=== PATIENT | male | born 1950 | race Caucasian/White ===

== ENCOUNTER 2016-10-25 18:50 | Inpatient (IN) | payer OTHER ==
[~2016-10-25] VITALS: Ht 195.6 cm; Wt 174.5 kg
[~2016-10-25 18:50] MED LIST: AZIT250T4 PO; CIPROFLOXACIN PO; DOXYCYCLINE PO; GLPZ5T PO; LISI10TA PO; METF500T4 PO; Phenylephrine 10,000 mCg/mL Inj ONE; Phenylephrine/NS 100 mCg/mL 10 mL Syringe IVPUSH ONE; Propofol 10,000 mCg/mL 20 mL Inj ONE; Succinylcholine Chloride 20 mg/mL 5 mL Inj ONE; fentaNYL-PF 50 mCg/mL 2 mL Inj ONE
[2016-10-25 18:54] VITALS: BP 138/85; PULSE 104; RESP 16; O2SAT 98
[2016-10-25] MEDS ORDERED: 0.9% Sodium Chloride 1,000 ML IV ONE ×2 (19:29→20:25)
--- NOTE | 2016-10-25 19:35 | ED.REPORT ---
HPI-Rash / Abscess Date of Service Oct 25, 2016 ED Provider: Ruby Gordillo History of Present Illness: 65-year-old male here for abscesses in his perianal area for one week. It is worsening. 3 days ago he began to feel weak and like he could not get out of bed. Slightly nauseous but he is able to eat no vomiting. No diarrhea. Generalized belly pain. 3 days ago his chest started hurting intermittently. Pain is dull. No known exacerbaters, comes and goes randomly. It is severe at this moment. No fever, chills or clamminess. He has a history of an abscess years ago. He has a history of diabetes last took his blood sugar 3 days ago and it was in the 200s. He has been too weak to take it since then. Nursing Notes Stated Complaint: BACK PAIN,WEAKNESS,BOIL Chief Complaint: Skin Rash/Abscess Allergies: Coded Allergies: No Known Allergies (Verified , 12/24/15) Scheduled ([Doxycycline]) 100 MG PO BID ([Ciprofloxacin]) 500 MG PO BID Azithromycin (Zithromax (Z-Delmar)) 250 Mg Tablet 250 MG PO DIRECTED Take two tablets by mouth on day 1, then take one tablet daily on days 2 through 5. Glipizide (Glipizide) 5 Mg Tablet 10 MG PO DAILY Lisinopril (Lisinopril) 10 Mg Tablet 10 MG PO DAILY Metformin (Metformin) 500 Mg Tablet 500 MG PO DAILY General Time Seen by MD: 19:20 Chief Complaint Abscess Hx Obtained From: Patient Arrived By: Walk-in Onset Occurred: 1 week ago Location: : Buttock: Generalized Severity: Current: Severe Severity: Maximum: Severe Associated with: Reports Abdominal pain, Reports Myalgia, Reports Nausea, Reports Weakness Pertinent Negative: Pt denies other symptoms Recent Healthcare: No recent doctor visit Similar Sx Previous: Yes Past Medical History Past Medical History Notes: PCP: Dr. Shanda Duff non smoker, no hx PR, no cholesterol issues. Past Medical History 1. Type 2 Diabetes 2. Hypertension 3. Depression and Anxiety 4. Vitamin D deficiency 5. Arthritis Reports: Diabetes mellitus, GERD Reports: Depression Past Surgical History Toe amputation scrotal surgery Reports: Tonsillectomy Smoking History Former Smoker Social History Alcohol Use: Denies alcohol use Drug Use: Denies drug use Other Social History: Local resident Ambulatory Status Independent Review of Systems Constitutional: Reports: Fatigue, Malaise, Weakness - generalized Respiratory: Denies: Dyspnea on exertion Cardiovascular: Reports: Chest pain, Denies: Edema GI: Reports: Abdominal pain, Nausea, Denies: Diarrhea, Vomiting Complete sys rev & neg: except as marked. Male: Denies Dysuria Neurologic: Reports: Lightheaded, Weakness Physical Exam Initial Vital Signs Vital Signs (First) Date Time Temp Pulse Resp B/P Pulse Ox O2 Delivery O2 Flow Rate FiO2 10/25/16 18:54 36.9 104 16 138/85 98 Room Air Initial VS: Reviewed, Vital signs normal General/Constitutional: Awake, Alert Distress / Hydration: Positive: Distress mild Appearance / Presentation: Positive: Ill appearing/not toxic Skin: Atraumatic, Color NL Rash / Lesion Notes: Large area of erythema, swelling, induration in the perineum, just to the left of midline. This area is tender. Appears deep. approx 8x3 inches Abscess #1 Location/Condition: Positive: Perirectal... (Indurated) Head / Eyes: Normocephalic, PERRL Pinpoint pupils Respiratory / Chest: Breath sounds NL, Breath sounds = bilat, No respiratory distress, No rales, No rhonchi, No wheezing Cardiovascular: Heart rate NL, Regular rhythm, Heart sounds NL, Peripheral circulation NL Neurologic: Oriented X3, Speech NL, No motor deficits, No sensory deficits Patient appears drowsy but answers all questions appropriately Male Genitourinary: Atraumatic, Penis NL, No penile discharge, No meatal blood , Testes NL, Epididymis NL Perineum: Positive: Abscess present, Erythema present, Rash present, Swelling present, Tenderness present Interpretation & Diagnostics Lab Results Interpretation Result Diagram: 10/25/16195410/25/161954 Test 10/25/16 19:55 White Blood Count 15.3th/mm3 (3.8-10.1) Red Blood Count 4.75mil/mm3 (4.40-5.80) Hemoglobin 13.6g/dL (13.8-17.2) Hematocrit 40.0% (41.0-50.0) Mean Corpuscular Volume 84.2fL (81-100) Mean Corpuscular Hemoglobin 28.6pg (27.0-35.0) Mean Corpuscular Hemoglobin Concent 34.0% (32.0-37.0) Red Cell Distribution Width 13.1% (12.3-15.4) Platelet Count 208bil/L (150-400) Neutrophils (%) (Auto) 87.7% (40-74) Lymphocytes (%) (Auto) 6.0% (14-46) Monocytes (%) (Auto) 5.8% (4-12) Eosinophils (%) (Auto) 0.1% (0-5) Basophils (%) (Auto) 0.1% (0-3) Sodium Level 131mEq/L (134-144) Potassium Level 4.7mEq/L (3.5-5.2) Chloride Level 90mEq/L (97-108) Carbon Dioxide Level 23mmol/L (18-29) Blood Urea Nitrogen 33mg/dL (8-27) Creatinine 1.58mg/dL (0.76-1.27) Estimat Glomerular Filtration Rate 47mL/min (>59) Glucose Level 320mg/dL (60-99) Lactic Acid Level 2.0mmol/L (0.4-2.0) Calcium Level 9.5mg/dL (8.5-10.1) Magnesium Level 1.6mg/dL (1.6-2.6) Total Bilirubin 0.8mg/dL (0.0-1.2) Aspartate Amino Transf (AST/SGOT) 21U/L (0-50) Alanine Aminotransferase (ALT/SGPT) 19U/L (0-44) Alkaline Phosphatase 104U/L (25-160) Troponin T < 0.010ug/L (0.0-0.011) Total Protein 8.1g/dL (6.4-8.4) Albumin 3.5g/dL (3.4-5.0) Lipase 17U/L (13-60) Re-Eval/Medical Decision Med Decision/Clinical Course pt wt [address] navarro 2100 Discharge & Departure Referrals: Prudence Olivo (PCP) Ruby Gordillo Oct 25, 2016 19:35
[2016-10-25 20:05] VITALS: BP 157/63; PULSE 106; RESP 22; O2SAT 100
[2016-10-25] MEDS ORDERED: Pantoprazole 4 mg/mL 10 mL Inj IVPUSH ONE (20:05)
--- NOTE | 2016-10-25 20:10 | DRSVH ---
PROCEDURE: X-RAY CHEST ONE VIEW, PORTABLE ([id number]) INDICATIONS: weakness TECHNIQUE: One view of the chest was acquired. COMPARISON: [facility], CR, XR CHEST 2VW, 10/29/2014, 10:33. FINDINGS: Surgical changes and devices: None. Lungs and pleura: No pleural effusions or pneumothorax. Lungs are clear. Mediastinum: Mediastinal contours appear normal. Heart size is normal. Bones and chest wall: No suspicious bony lesions. Overlying soft tissues appear unremarkable. IMPRESSION: No acute process. Dictated by: Monika Bates M.D. on 10/25/2016 at 20:08 Approved by: Monika Bates M.D. on 10/25/2016 at 20:08
[2016-10-25 20:13] LABS: BASOPHILS % (AUTO) 0.1 % (0-3); EOSINOPHILS % (AUTO) 0.1 % (0-5); MONOCYTES % (AUTO) 5.8 % (4-12); Mean Corpuscular Hemoglobin 28.6 pg (27.0-35.0); Mean Corpuscular Volume 84.2 fL (81-100); NEUTROPHILS % (AUTO) 87.7 % (40-74); Platelet Count 208 bil/L (150-400)
[2016-10-25] MEDS ORDERED: Vancomycin Dose per Pharmacist XX ONE (20:20)
[2016-10-25] MEDS ORDERED: Vancomycin Inj 2,250 MG in 0.9% Sodium Chloride 500 ML IV ONE (20:40)
[2016-10-25 20:51] LABS: TROPONIN T < 0.010 ug/L (0.0-0.011)
[2016-10-25 20:58] VITALS: BP 160/44; PULSE 102; RESP 20; O2SAT 98
[2016-10-25 21:01] LABS: Lipase 17 U/L (13-60); Magnesium 1.6 mg/dL (1.6-2.6)
[2016-10-25] MEDS ORDERED: Piperacillin-Tazo 3.375 Gm Inj 3.375 GM in Dextrose 5% Minibag Plus 50 ML IV ONE (21:05)
--- NOTE | 2016-10-25 21:51 | DRSVH ---
PROCEDURE: CT ABDOMEN AND PELVIS WITH CONTRAST ([id number]) INDICATIONS: abscess perineum TECHNIQUE: After the administration of intravenous contrast, 5 mm thick sections acquired from the diaphragm to the symphysis. 5 mm coronal and sagittal reformats were acquired. For radiation dose reduction, the following was used: automated exposure control, adjustment of mA and/or kV according to patient siz e. COMPARISON: None. FINDINGS: Image quality: Excellent. ABDOMEN: Lung bases: Lung bases are clear. Heart size is normal. Solid organs: Liver and spleen are normal in size and enhancement. Gallbladder demonstrates multipl e calculi within its lumen. Biliary system is non dilated. Pancreas enhances normally. No adrenal nodules. Kidneys demonstrate normal size and enhancement, without hydronephrosis. There is mild sym metrical perinephric fat stranding. Peritoneum and bowel: A small hiatal hernia is present. Bowel loops demonstrate normal wall thickness and caliber. No free fluid or air. Appendix not seen. No evidence of appendicitis. Nodes and vessels: No retroperitoneal or mesenteric adenopathy by size criteria. Aorta and inferior vena cava are normal in size. Miscellaneous: No ventral hernias. PELVIS: Genitourinary: Bladder wall thickness is normal. Miscellaneous: No inguinal hernias or adenopathy. There is a multi-locular gas-containing collectio n within the subcutaneous tissues of the left perineum, measuring roughly 80 mm anteroposterior by 10 mm transverse. Bones: No suspicious bony lesions. No vertebral body compression fractures. IMPRESSION: 1. Subcutaneous gas collection within the left perineum, consistent with infection, with gas-forming organism (necrotizing fasciitis). 2. Cholelithiasis. 3. Small hiatal hernia. 4. Findings discussed with Dr. Mirza on 10.25.16 at 2148 hrs. Dictated by: Monika Bates M.D. on 10/25/2016 at 21:43 Approved by: Monika Bates M.D. on 10/25/2016 at 21:49
[2016-10-25] MEDS ORDERED: DULO60CA61 PO (22:40)
[2016-10-25] MEDS ORDERED: ALBU8.5H2 INHALATION (22:40)
[2016-10-25] MEDS ORDERED: BECL8.7A5 INHALATION (22:40)
[2016-10-25] MEDS ORDERED: IBUP800T28 PO (23:09)
[2016-10-25] MEDS ORDERED: ASCO250T7 PO (23:09)
[2016-10-25] MEDS ORDERED: MULT-528 PO (23:09)
[2016-10-25] MEDS ORDERED: VITA1TAB22 PO (23:09)
[2016-10-25] MEDS ORDERED: Alum-Mag Hydrox-Simeth 30 mL Suspension PO PRN (23:20)
[2016-10-25] MEDS ORDERED: Polyethylene Glycol (PEG) 17 Gm Powder PO PRN (23:20)
[2016-10-25] MEDS ORDERED: Lactated Ringer's 1,000 ML IV ONE (23:57)
[2016-10-26] VITALS (27 sets, daily range): BP systolic 84–152; BP diastolic 38–70; PULSE 71–86; RESP 10–18; O2SAT 92–100
[2016-10-26] MEDS ORDERED: Lactated Ringer's 1,000 ML IV SCH ×3 (00:19→14:51)
[2016-10-26] MEDS ORDERED: Lactated Ringer's 500 ML IV PRN ×2 (00:19→14:51)
--- NOTE | 2016-10-26 00:19 | PCM.HPANE ---
Patient Data Date of Service: Oct 25, 2016 Surgeon Admitting Provider:Alber Mims MD Attending Provider:Nathalie Agudelo DO Primary Care Physician:Prudence Olivo Other Provider: Reason for Visit Perineal Gangrene Ht/WT & BMI Weight (Kilograms): 175 Body Mass Index 44 Allergies Coded Allergies: No Known Allergies (Verified , 12/24/15) Past Anesthesia History Anesthesia History: Denies:: Abnormal Airway, Anesthesia Reactions, Difficult Intubation, Malignant Hyperthermia Diabetes History Hx Diabetes?: Yes Type of Diabetes: Type II Glycemic Control: Oral Medication Current Bedside Blood Glucose: 297 MRSA MRSA: Yes (in the blood/SCROTAL WOUND) Medications Blood Thinner: Aspirin Hypertension Medication: Yes Home Meds Incl Beta Tiffany: No Reported Medications Ibuprofen 800 Mg Dtlmmx541 Mg PO DAILYWM Ref 0 10/25/16 B Complex with Vitamin C (Vitamin B-Complex with Vit C)1 Each Tablet1 Each PO QAM 10/25/16 Multivit with Calcium,Iron,Min (Multivitamins C-Adqmuiz-Ewrc)1 Each Tablet1 Each PO QAM 10/25/16 Ascorbic Acid (Vitamin C)250 Mg Tab.sxwz604 Mg PO DAILYWM #30 TABLET Ref 0 10/25/16 Lisinopril 10 Mg Shxkhq53 Mg PO QAM 30 Days Ref 0 07/10/15 Glipizide 5 Mg Pudkru12 Mg PO DAILYWM 30 Days 04/25/14 Metformin 500 Mg Kvulgv175 Mg PO DAILYWM 30 Days Ref 0 04/25/14 Discontinued Reported Medications Duloxetine 60 Mg Capsule.dr60 Mg PO DAILY Ref 0 10/25/16 Beclomethasone Dipropionate (Qvar)8.7 Gm Aer.w.adap1 Puff INHALATION BID #8.7 GM 80 MCG 10/25/16 Albuterol HFA (Proair HFA)8.5 Gm Hfa.aer.ad2 Puffs INHALATION Q4H PRN For Shortness of Breath #1 INHALER 10/25/16 [Ciprofloxacin] No Conflict Krisx692 Mg PO BID 07/10/15 [Doxycycline] No Conflict Kbxae269 Mg PO BID 07/10/15 Discontinued Scripts Azithromycin (Zithromax (Z-Delmar))250 Mg Wnosfd714 Mg PO DIRECTED #6 TABLET Ref 0 Take two tablets by mouth on day 1, then take one tablet daily on days 2 through 5. Prov:Levon Gibbs MD 12/24/15 History History of ENT Problems?: Yes HEENT History: Positive for:: Sinus Problem (SINUSITIS) Denies:: Abnormal Airway Cataracts Difficult Intubation Dysphagia Denture Type: None Teeth Condition: Broken Teeth No Teeth Tooth Decay Inflamed Gums Missing Teeth Hx of Heart Problems?: Yes Cardiovascular History: Positive for:: Edema Hypertension Denies:: Cardiac Surgery Chest Pain Congestive Heart Failure Heart Murmur Irregular Heartbeat Pacemaker Thrombophlebitis Hx of Respiratory Problem?: Yes Respiratory History: Positive for:: Cough Hemoptysis (HX OF) Denies:: Asthma COPD Chest Surgery Dyspnea Emphysema Pneumonia (HX BRONCHITIS) Tuberculosis Use of C-PAP Machine Hx Neurologic Problems?: No Neurological History: Denies:: Alzheimer's Disease CVA Dementia Dizziness Headaches Parkinson's Disease Seizures Hx of GI Problems?: Yes Hx of Problems?: Yes Genitourinary History: Positive for:: Kidney Stones (HX OF) Urinary Tract Infection (HX OF) Denies:: HX of Hemodialysis HX of Peritoneal Dialysis: No Male Hx: Positive for:: Testicular Surgery (S/P I&D PERINEAL ABCESS,I&D MRSA WOUND-SCROTUM) Denies:: Prostate Problems Scrotal Mass Skin History: Positive for:: Pressure Ulcers (ULCERS LT LOWER LEG (RESOLVED) & FOOT ) Denies:: History Skin Disorders? Hx Musculoskeletal Problems?: Yes Musculoskeletal History: Denies:: Back Injury Joint Replacement Musculoskeletal Trauma Hx of Psycho/Social Problems?: Yes Psycho Social History: Positive for:: Anxiety Hx Depression Denies:: Bipolar Disorder Suicide Attempt Hx Surgeries?: Yes (SCROTAL SURGERY,I&D PERINEAL ABCESS,PARTIAL AMP LT 5TH TOE) Hx Any Other Health Problems?: Yes Other History: Positive for:: Hospitalization (SCROTAL WOUND) Denies:: Cancer Endocrine Disease Thyroid Disease History Blood Transfusions: Denies:: Blood Transfuse Reaction Blood Transfusions Hx Diabetes: YesBedside Blood Glucose: 297 Hx Alcohol Use: NoHx Substance Use: No Smoking Status: Former Smoker Have You Smoked inLast 12 mo: No Stop/Bang Treated for Sleep Apnea?: Yes Do You Have a CPAP Machine?: Yes ENA Risk Assessment: High Risk, =/>3 Yes ENA Category 2: Yes Risk Assessment Category Category 1A: Patient has history of documented sleep apnea, and HAS NOT received any narcotic, sedative or anesthesia administration during this stay. Category 1B: Patient has history of documented sleep apnea, and HAS received any narcotic , sedative or anesthesia administration during this stay Category 2: Patient has SUSPECTED Obstructive Sleep Apnea, and HAS received any narcotic , sedative or anesthesia administration during this stay. Category 3: Patient has SUSPECTED Obstructive Sleep Apnea and HAS NOT received narcotic, sedative or anesthesia administration during this stay. Category 4: Outpatient in Procedural Areas with known sleep apnea or who screen positive for High Risk via the STOP/BANG questionnaire. Exam Exam Vital Signs Vital Signs Date Time Temp Pulse Resp B/P Pulse Ox O2 Delivery O2 Flow Rate FiO2 10/25/16 20:58 102 20 160/44 98 Room Air 10/25/16 20:05 38.6 106 22 157/63 100 Room Air 10/25/16 18:54 36.9 104 16 138/85 98 Room Air General Appearance: Alert, Oriented X3, Cooperative HEENT/AIRWAY: MP 2, Neck Movement (Ok), Mouth Opening (Wide), Other (Poor dentition) Lungs: Clear to Auscultation, Normal Air Movement Heart: Regular Rate/Rhythm, Normal S1, Normal S2 Meds/Labs/Diagnostics Admission Meds Current Medications Sodium Chloride (Normal Saline) 1,000 ml @ 0 mls/hr Q0M ONCE IV Last administered on 10/25/16 20:08; Start 10/25/16 at 19:29; Stop 10/25/16 at 19:31 ; Status DC Aspirin (Aspirin Chewable) 324 mg NOW ONCE PO Last administered on 10/25/16 20:24; Start 10/25/16 at 20:05; Stop 10/25/16 at 20:06; Status DC Pantoprazole 40 mg 40 mg ONCE ONCE IVPUSH Last administered on 10/25/16 20:24 ; Start 10/25/16 at 20:05; Stop 10/25/16 at 20:06; Status DC Sodium Chloride 1,000 ml @ 0 mls/hr Q0M ONCE IV Last administered on 21:24; Start 10/25/16 at 20:25; Stop 10/25/16 at 20:26; Status DC Vancomycin HCl 2250 mg/Sodium Chloride 500 ml @ 250 mls/hr ONCE ONCE IV Last administered on 7/23/17at 22:31; Start 10/25/16 at 20:40; Stop 10/25/16 at 22:39 ; Status DC Piperacillin Sod/ Tazobactam Sod/ Dextrose/Water (Zosyn 3.375 Gm Inj/D5W Minibag Plus) 50 ml @ 100 mls/hr ONCE ONCE IV Last administered on 10/25/16t 21:24; Start 10/25/16 at 21:05; Stop 10/25/16 at 21:34; Status DC Bedside Blood Glucose: 297 Labs Test 10/25/16 19:55 White Blood Count 15.3th/mm3 (3.8-10.1) Red Blood Count 4.75mil/mm3 (4.40-5.80) Hemoglobin 13.6g/dL (13.8-17.2) Hematocrit 40.0% (41.0-50.0) Mean Corpuscular Volume 84.2fL (81-100) Mean Corpuscular Hemoglobin 28.6pg (27.0-35.0) Mean Corpuscular Hemoglobin Concent 34.0% (32.0-37.0) Red Cell Distribution Width 13.1% (12.3-15.4) Platelet Count 208bil/L (150-400) Neutrophils (%) (Auto) 87.7% (40-74) Lymphocytes (%) (Auto) 6.0% (14-46) Monocytes (%) (Auto) 5.8% (4-12) Eosinophils (%) (Auto) 0.1% (0-5) Basophils (%) (Auto) 0.1% (0-3) Sodium Level 131mEq/L (134-144) Potassium Level 4.7mEq/L (3.5-5.2) Chloride Level 90mEq/L (97-108) Carbon Dioxide Level 23mmol/L (18-29) Blood Urea Nitrogen 33mg/dL (8-27) Creatinine 1.58mg/dL (0.76-1.27) Estimat Glomerular Filtration Rate 47mL/min (>59) Glucose Level 320mg/dL (60-99) Lactic Acid Level 2.0mmol/L (0.4-2.0) Calcium Level 9.5mg/dL (8.5-10.1) Magnesium Level 1.6mg/dL (1.6-2.6) Total Bilirubin 0.8mg/dL (0.0-1.2) Aspartate Amino Transf (AST/SGOT) 21U/L (0-50) Alanine Aminotransferase (ALT/SGPT) 19U/L (0-44) Alkaline Phosphatase 104U/L (25-160) Troponin T < 0.010ug/L (0.0-0.011) Total Protein 8.1g/dL (6.4-8.4) Albumin 3.5g/dL (3.4-5.0) Lipase 17U/L (13-60) Plan Impression Patient chart reviewed, patient interviewed and anesthestic plan with risks, benefits, and alternatives discussed, and informed consent obtained. NPO per Anesth. Guidelines: Yes ASA Physical Status: ASA3 Severe Disease Anesthetic Support Modalities: [place] Scope Anesthetic Plan: GA Bene/Risks/Altern/Consents: Yes HP Complete Prior to Induction: Yes Dmitry Delacruz MD Oct 25, 2016 22:46
[2016-10-26] MEDS ORDERED: Dexamethasone 4 mg/mL Inj IVPUSH PRN ×2 (00:20→14:55)
[2016-10-26] MEDS ORDERED: HYDROmorphone 1 mg/mL Inj IVPUSH PRN (00:20)
[2016-10-26] MEDS ORDERED: Atropine 0.4 mg/mL Inj IVPUSH PRN (00:20)
[2016-10-26] MEDS ORDERED: MetoCLOpramide 5 mg/mL 2 mL Inj IVPUSH PRN ×2 (00:20→14:55)
[2016-10-26] MEDS ORDERED: hydrALAZINE 20 mg/mL Inj IVPUSH PRN (00:20)
[2016-10-26] MEDS ORDERED: Ondansetron 2 mg/mL 2 mL Inj IVPUSH PRN ×3 (00:20→14:55)
[2016-10-26] MEDS ORDERED: Labetalol 5 mg/mL 20 mL Inj IV PRN (00:20)
[2016-10-26] MEDS ORDERED: EPHEDrine Sulfate 50 mg/mL Inj IVPUSH PRN ×2 (00:20→14:55)
--- NOTE | 2016-10-26 00:25 | HP ---
[address] [address] HISTORY AND PHYSICAL PATIENT: MANNY PRESTON : 1950 MR#: [id number] ADMIT: 10/25/2016 JOB ID: [id number] DATE OF SERVICE: 10/25/2016 CHIEF COMPLAINT/IDENTIFICATION: I have been asked to admit this 65-year-old man with a perineal soft tissue infection. 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 He has been noticing some discomfort for about a week in the area between his anus and his scrotum. This has gotten especially bad since Wednesday and is reminiscent of when he had a perineal soft tissue infection that was debrided by the Urology Service in 2005 at [facility]. He comes in to be evaluated and has had a CAT scan that has demonstrated some perineal soft tissue gas. PAST MEDICAL HISTORY: Diabetes, hypertension, depression, anxiety, diabetic foot problems including toe amputation. MEDICATIONS: Glipizide, metformin, lisinopril, some sort of "water pill." ALLERGIES: No known allergies. SOCIAL HISTORY: He lives alone. Ex-smoker; negative tobacco currently. Negative daily alcohol use. 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 FAMILY HISTORY: Noncontributory. REVIEW OF SYSTEMS: Per ER note, generally negative except as above. PHYSICAL EXAMINATION: Vital signs are recorded in the chart. His temperature is 38.6, his pulse is mildly elevated at around 100-106, blood pressure is 160/44, room air saturation is 98%. He does not look toxic. His sclerae are clear. His neck is supple. Lungs are clear. Heart sounds are regular. Abdomen is soft. He has some erythema in the perineum between the scrotum and the anus. No fluctuance. There is a midline swelling, but no crepitus. LABORATORY DATA: White count is 15.3, hematocrit is 40. Chemistries show a mild hyponatremia of 131. BUN and creatinine are up a bit at 33 and 1.58. His glucose is 320. Liver function tests are normal. Lipase is 17. IMAGING: He had an abdominal and pelvic CT scan which demonstrates subcutaneous gas collection within the left perineum, consistent with gas-forming organisms. I have reviewed the report and the films. IMPRESSION AND PLAN: A 65-year-old male, with comorbidities of diabetes and hypertension and morbid obesity, who presents with gas gangrene of the perineum. His glucose is 320, but I think we need to get him to the OR sooner than later. We will try to correct his glucose perioperatively, but I have recommended that we go to the operating room and perform a debridement of his perineum with the caveat that he may end up with a fair amount of soft tissue loss. He agrees to proceed. The Hospitalist Services will be asked to consult. We will plan to put him in the ICU postop.
[2016-10-26] MEDS ORDERED: Meropenem Inj 1,000 MG in 0.9% Sodium Chloride 100 ML IV SCH (00:30)
[2016-10-26] MEDS ORDERED: Insulin Human REGular Inj 100 UNIT in 0.9% Sodium Chloride-Pha MIX 100 ML IV SCH ×2 (01:13→01:23)
[2016-10-26] MEDS ORDERED: Dextrose 5% 0.45% NaCl 1,000 ML IV PRN ×2 (01:13→01:23)
[2016-10-26] MEDS: Phenylephrine 10,000 mCg/mL Inj IVPUSH PRN ×5 (01:20→01:56)
[2016-10-26] MEDS ORDERED: Phenylephrine/NS-PF 100 mCg/mL 5 mL Syringe IVPUSH ONE ×2 (01:20→15:19)
[2016-10-26] MEDS ORDERED: diphenhydrAMINE 25 mg Capsule PO PRN (01:25)
[2016-10-26] MEDS ORDERED: Piperacillin-Tazo 3.375 Gm Inj 3.375 GM in Dextrose 5% Minibag Plus 50 ML IV SCH (01:25)
[2016-10-26] MEDS ORDERED: Clindamycin Inj 900 MG in IV Premix 1 EACH IV SCH (01:25)
[2016-10-26] MEDS ORDERED: Polyethylene Glycol (PEG) 17 Gm Powder PO ONE (01:25)
--- NOTE | 2016-10-26 01:33 | PCM.HPMED ---
Subjective Date of Service Oct 26, 2016 Primary Provider: Admitting Physician: Alber Mims MD Primary Care Physician: Prudence Olivo Attending Physician: Nathalie Agudelo DO Admit Status: From the Emergency Department Chief Complaint: Perineal pain History of Present Illness: Patient is a 65-year-old male with a history of type 2 diabetes, and past history of perineal abscesses who presents with pain and swelling in his perineal area for one week. He developed nausea, vomiting, and diarrhea last Wednesday and he began to feel weak and like he could not get out of bed. He reports anorexia, weakness, and generalized dull abdominal pain. He denies any trauma to the area. Denies fevers, chills. He states this episode is similar to an episode in 2005 when he was admitted to [facility] for perineal soft tissue infection, which was debrided by Dr. Chow of Urology. He has a history of diabetes last took his blood sugar 3 days ago and it was in the 200s. He has been too weak to take it since then. He reports intermittent chest pain that began about 2 months ago after a severe cough. He reports a sternal aching chest pain that does not radiate or worsen with exertion, and improves with heat packs. He states he has no dyspnea or chest pain on exertion and can climb 1-2 flights of stairs without any difficulty. He has no history of cardiovascular disease. On admission, temp 38.6, HR 106, RR 22, BP 157/63, O2 100 on RA. WBC 15.3 with 87.7% neutrophils, BUN 33, Cr 1.58, glucose 320. Abdominal CT showed subcutaneous gas collection within the left perineum. Review of Systems: Comprehensive review of systems conducted and was negative except for the pertinent positives listed above. 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 External ears normal. Eyes: PERRLA, EOMI. Anicteric sclerae. Mouth: Mouth normal, Mucous membranes dry Neck: Neck supple with full range of motion. Chest& Lungs: Clear to auscultation bilaterally with no crackles, wheezes, or rhonchi. Cardiovascular: Regular rate/rhythm, Normal S1, Normal S2, Systolic murmur Abdomen: Non-tender, Non-distended, No masses, Normoactive bowel tones, Soft Genitourinary: Perineal edema and erythema present. Musculoskeletal: Normal range of motion Extremities: Left lower extremity edema and venous stasis dermatitis. Neurological: Grossly neurologically intact. Normal speech Lab and Diagnostics Result Diagram: 10/25/16195410/25/161954 X-Rays, CTs and MRIs Date of Service: 10/25/162104 PROCEDURE: CT ABDOMEN AND PELVIS WITH CONTRAST ([id number]) 1. Subcutaneous gas collection within the left perineum, consistent with infection, with gas-forming organism (necrotizing fasciitis). 2. Cholelithiasis. 3. Small hiatal hernia. 4. Findings discussed with Dr. Mirza on 10.25.16 at 2148 hrs. Dictated by: Monika Bates M.D. on 10/25/2016 at 21:43 Approved by: Monika Bates M.D. on 10/25/2016 at 21:49 Date of Service: 10/25/161928 PROCEDURE: X-RAY CHEST ONE VIEW, PORTABLE ([id number]) IMPRESSION: No acute process. Dictated by: Monika Bates M.D. on 10/25/2016 at 20:08 Approved by: Monika Bates M.D. on 10/25/2016 at 20:08 Assessment & Plan Patient is a 65-year-old male with a history of type 2 diabetes, and past history of perineal abscesses who presents with pain and swelling in his perineal area for one week. Admitted for Delphine's gangrene. Acute sepsis. Present on admission. - Secondary to Delphine's gangrene in the context of uncontrolled type 2 diabetes. Temp 38.6, HR 106, RR 22, WBC 15.3. - NS @ 100 ml/hr - Blood cultures pending - Wound cultures 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 - Patient presents with necrotizing fasciitis of the perineal area with gas forming organisms. CT as described above. Based on history, he is of intermediate cardiovascular risk for a high risk surgery. However, given the emergent nature of the surgery, will proceed with surgical debridement. - Zosyn, clindamycin, and vancomycin IV started in ED and post op - will continue with meropenem, clindamycin and vancomycin - Dr. Mims of General Surgery is consulting and will take pt to surgery urgently. We appreciate his expertise. - NPO - Dilaudid SUSTAINABILITY MANAGER, patient will likely return intubated into the CCU post op. Sedation will be continued with fentanyl and propofol Acute kidney injury. Present on admission. - Cr 1.58 on admission, secondary to sepsis. Pt denies history of CKD. Based on previous hospitalizations, baseline Cr likely around 1.0. - NS @ 100 ml/hr - Avoid nephrotoxic medications - Monitor BMP Type 2 Diabetes, Uncontrolled, Present on Admission, Chronic - BG 320 on admission. Pt reports BG in 200s for last few days. Possibly acute secondary to infection. Pt is NPO for now. - Hold home glipizide and metformin - Insulin gtt. - A1c pending Hypertension, acute on chronic. - BP 160/44 on admission. Now mildly hypotensive (107/57) after surgery. - Continue to monitor BP - Hold home lisinopril. Other Medical Conditions GERD - GI prophylaxis with pepcid Depression and Anxiety - Bowel regimen as needed - Antiemetic as needed Patient is admitted under inpatient status with expected length of stay greater than 2 midnights due to severity of presenting symptoms, risk of adverse event, and complexity of treatment plan. GI Prophylaxis: Proton Pump Inhibitor VTE Prophylaxis: SCDs Resuscitation Status: CPR: Attempt Resuscitation Attending Statement The patient was seen and examined together with house staff on 10/25/2016 and I agree with the history, exam and plan as outlined in the note above. Tarun Nixon Oct 26, 2016 01:33 Nathalie Agudelo DO Oct 26, 2016 03:38
[2016-10-26] MEDS: Phenylephrine 20 mg/250 mL D5W IV SCH ×14 (01:45→21:25)
[2016-10-26] MEDS: fentaNYL-PF 50 mCg/mL 2 mL Inj IVPUSH PRN ×5 (02:11→16:11)
--- NOTE | 2016-10-26 02:35 | PCM.ANEP1 ---
Post Anesthesia PACU Phase 1 Assessment Date of Service: Oct 26, 2016 Vital Signs Vital Signs Date Time Temp Pulse Resp B/P Pulse Ox O2 Delivery O2 Flow Rate FiO2 10/26/16 02:20 82 15 107/57 95 Room Air 10/26/16 02:15 37.4 82 12 133/38 95 Room Air 10/26/16 02:10 83 15 152/70 94 Room Air 10/26/16 02:05 84 18 125/59 95 Room Air 10/26/16 02:00 85 16 118/60 100 Simple Mask 8 10/26/16 01:55 86 16 86/40 100 Simple Mask 8 10/26/16 01:50 86 16 106/59 100 Simple Mask 8 10/26/16 01:45 84 16 90/39 100 Simple Mask 8 10/26/16 01:40 86 16 88/42 100 Simple Mask 8 10/26/16 01:35 86 16 92/45 100 Simple Mask 8 10/26/16 01:30 85 16 92/44 100 Simple Mask 8 10/26/16 01:25 84 16 96/49 100 Simple Mask 8 10/26/16 01:20 36.6 84 16 84/40 100 Simple Mask 8 10/25/16 20:58 102 20 160/44 98 Room Air 10/25/16 20:05 38.6 106 22 157/63 100 Room Air 10/25/16 18:54 36.9 104 16 138/85 98 Room Air Anesthetic Administered: GA Level of Alertness: Awake, talking TRAYLOR's with Equal Strength: Yes Pain: Yes Pain Scale Score: 6 Nausea or Vomiting: No CV Function & Hydration Stable: No (hypotension) Airway Device: Oxygen Delivery: Simple Mask Lungs: Normal Air Movement PACU Phase 2 Assessment Complications: No Follow up Care: No Patient Instructions Provided: N/A Comments Patient with persistent hypotension in PACU despite fluid resuscitation. A right IJ triple lumen central line and right radial a-line were placed while in PACU prior to transfer to the ICU. See separate procedure notes. Dmitry Delacruz MD Oct 26, 2016 02:35
--- NOTE | 2016-10-26 02:44 | OP ---
[address] [address] OPERATIVE REPORT PATIENT: MANNY PRESTON : 1950 MR#: [id number] ADMIT: 10/25/2016 JOB ID: [id number] DATE OF SURGERY: 10/26/2016 PREOPERATIVE DIAGNOSIS(ES): Perineal soft tissue infection with subcutaneous gas. POSTOPERATIVE DIAGNOSIS(ES): Necrotizing fasciitis of the perineum. PROCEDURE: Debridement of perineal necrotizing fasciitis. SURGEON: Alber Mims MD SENIOR ENGINEER: Evan Ruiz PA-C. imaging assistant was required for exposure and retraction and should be considered medically necessary for the procedure. INDICATIONS: A 65-year-old man, with a previous history of perineal soft tissue infection debrided by Urology in 2005, who returns now with a one-week history of perineal discomfort and cellulitis. A CAT scan demonstrates soft tissue gas. He was brought to the operating room for urgent debridement. FINDINGS: Necrotizing fasciitis of the perineum as described below. The patient will be placed in ICU on antibiotics and will have return to the operating room for dressing change within the next 12-24 hours. PROCEDURE IN DETAIL: The patient was brought to the operating room. General anesthetic was administered. SCOAP protocol was followed. He was on therapeutic antibiotics. A surgical time-out was performed. The patient was placed in a lithotomy position. Perineum was prepped and draped in a sterile fashion. There was no palpable subcutaneous crepitus. I attempted to aspirate in the midline where the soft tissue was heaped up, but we obtained no pus. I made a longitudinal incision in the midline residential between the anus and the scrotum. Incision was approximately 1 cm deep, but still did not reveal any truly necrotic tissue. I was then able to punch into the deeper fascial plane with a Viry clamp and got back gas and fluid. We extended our incision. I came across areas of necrotizing fasciitis with easy finger dissection along the necrotic ortiz fascia. We excised a portion of this and sent it to pathology. We now proceeded with a lengthy incision and eventually the incision was made almost posteriorly to the anus, but anteriorly to the base of the scrotum and then up into the left groin crease where the fascial planes had been disrupted. Throughout this area, we found ortiz necrotic fascia that was debrided off. There was brisk bleeding from surrounding tissue consistent with inflammatory response. We got up towards the base of the scrotum and dissection require deeper tracking. We eventually got to the point where the tissue planes were intact and all ortiz necrotic fascia was excised, either with scissors, a knife or blunt dissection. We then proceeded to obtain hemostasis. The wound was packed off. Hemostasis was finally achieved. All necrotic tissue was removed. I explored bluntly with my finger and could not find any further dissection of the fascial planes from the disease. We now irrigated out the wound, packed it with a saline soaked Kerlix gauze, an ABD and mesh underwear to hold the ABD in place. The patient was transferred from the operating room to [facility] after extubation and is currently in the recovery room hypotensive. The patient's blood sugar was in the 200s throughout the operation and he will be started on an insulin drip. He will have Zosyn and clindamycin continued. He will be admitted to the CCU as planned and the hospitalist service will consult.
[2016-10-26] MEDS: 0.9% Sodium Chloride 1,000 ML IV SCH ×3 (02:51→17:03)
[2016-10-26] MEDS: Clindamycin Inj 900 MG in IV Premix 1 EACH IV SCH ×3 (02:52→17:02)
--- NOTE | 2016-10-26 02:53 | PROCED ---
[address] [address] PROCEDURE NOTE PATIENT: MANNY PRESTON : 1950 MR#: [id number] ADMIT: 10/25/2016 JOB ID: [id number] DATE OF SERVICE: PREOPERATIVE DIAGNOSIS(ES): Hypotension. POSTOPERATIVE DIAGNOSIS(ES): Hypotension requiring vasopressors. SURGEON: Dmitry Delacruz MD PROCEDURE IN DETAIL: The patient is a 65-year-old male who just underwent general anesthesia for perineal debridement secondary to necrotizing fasciitis. In the recovery room, he was found to be persistently hypotensive, despite fluid resuscitation, thus necessitating central venous access for vasopressor support. The patient was verbally consented in the PACU. His right neck was prepped with ChloraPrep. Then, using sterile technique, including gown, gloves, hat and mask, a full body sterile drape was placed over the patient. Lidocaine 1%, 2 mL, was used to anesthetize the skin. Under ultrasound guidance, the right internal jugular vein was cannulated with the angiocatheter. Angiocatheter was advanced into the vessel followed by the guidewire. The angiocatheter was removed. Guidewire was left in place. Position was confirmed of the guidewire with ultrasound. A small andrea was made at the skin at the location of the guidewire. A dilator was advanced over the wire and removed, followed by a triple-lumen 20 cm 7-Sami antibiotic-impregnated catheter. This catheter was advanced to 16 cm. All ports were aspirated and flushed. The catheter was fixed with a StatLock device, followed by a sterile dressing. The patient tolerated the procedure well. He was started on phenylephrine infusion in the PACU. A followup chest x-ray was ordered. The chest x-ray showed successful cannulation of the right internal jugular vein with the tip of the catheter near the SVC-cardiac margin. The official read is not yet back not appear to have been any complications noted. The patient tolerated the procedure well.
--- NOTE | 2016-10-26 02:56 | PROCED ---
[address] [address] PROCEDURE NOTE PATIENT: MANNY PRESTON : 1950 MR#: [id number] ADMIT: 10/25/2016 JOB ID: [id number] DATE OF SERVICE: PROCEDURE: Arterial line placement. PREOPERATIVE DIAGNOSIS(ES): Hypotension. POSTOPERATIVE DIAGNOSIS(ES): Hypotension. SURGEON: Dmitry Delacruz MD PROCEDURE IN DETAIL: The patient is a 65-year-old male status post perineal debridement for necrotizing fasciitis. He is in the PACU with persistent hypotension despite fluid resuscitation. He was consented for a right radial A line. The right forearm was prepped with ChloraPrep. Using sterile gloves and mask, 1 mL of 1% lidocaine was placed over the right radial artery and, using a 20-gauge arterial line kit, the right radial artery was cannulated on the first attempt with good pulsatile flow. The catheter was advanced into the vessel and attached to a pressure bag. The patient tolerated the procedure well. A sterile dressing was placed over the site. The patient did not appear to suffer any complications with this procedure. He was conversant and awake.
[2016-10-26 03:05] LABS: BASOPHILS % (AUTO) 0.2 % (0-3); EOSINOPHILS % (AUTO) 0.1 % (0-5); MONOCYTES % (AUTO) 9.5 % (4-12); Mean Corpuscular Volume 84.4 fL (81-100); NEUTROPHILS % (AUTO) 83.1 % (40-74); Platelet Count 232 bil/L (150-400)
[2016-10-26] MEDS ORDERED: Meropenem Inj 2,000 MG in 0.9% Sodium Chloride-Pha MIX 100 ML IV ONE (03:05)
[2016-10-26] MEDS: HYDROmorphone PCA 0.2 mg/mL 30 mL Inj IV PRN (05:39)
--- NOTE | 2016-10-26 05:56 | NUR ---
Admit Patient arrived from PACU to the floor around 0240 and self transfers onto a bariatric ILSA bed in the room. Patient currently denying pain at rest. Oriented to room, call light, and plan of care. Phenylephrine infusing. Fentanyl just given by SANDSTONE SPLITTER and patient denies all pain.
--- NOTE | 2016-10-26 06:43 | PCM.CONPHA ---
Subjective Date of Service: Oct 26, 2016 Requesting Provider: Tarun Nixon Perineal pain History of Present Illness Delphine's gangrene/necrotizing fasciitis Reason for Pharmacy Consult: Vancomycin Dosing Objective Vital Signs Date Time Temp Pulse Resp B/P Pulse Ox O2 Delivery O2 Flow Rate FiO2 10/26/16 05:48 14 100 10/26/16 03:00 Supplement Oxygen 10/26/16 02:40 37.2 79 10 98/45 92 10/26/16 02:35 Simple Mask 10/26/16 02:20 82 15 107/57 95 Room Air 10/26/16 02:15 37.4 82 12 133/38 95 Room Air 10/26/16 02:10 83 15 152/70 94 Room Air 10/26/16 02:05 84 18 125/59 95 Room Air 10/26/16 02:00 85 16 118/60 100 Simple Mask 8 10/26/16 01:55 86 16 86/40 100 Simple Mask 8 10/26/16 01:50 86 16 106/59 100 Simple Mask 8 10/26/16 01:45 84 16 90/39 100 Simple Mask 8 10/26/16 01:40 86 16 88/42 100 Simple Mask 8 10/26/16 01:35 86 16 92/45 100 Simple Mask 8 10/26/16 01:30 85 16 92/44 100 Simple Mask 8 10/26/16 01:25 84 16 96/49 100 Simple Mask 8 10/26/16 01:20 36.6 84 16 84/40 100 Simple Mask 8 10/25/16 20:58 102 20 160/44 98 Room Air 10/25/16 20:05 38.6 106 22 157/63 100 Room Air 10/25/16 18:54 36.9 104 16 138/85 98 Room Air Intake and Output 10/24/16 10/25/16 10/26/16 00:00 00:00 00:00 Intake Total 3000 ml Output Total 450 ml Balance 2550 ml Weight (Kilograms): 163.500 Height (Feet): 6 Height (Inches): 5.00 Test 10/25/16 19:55 10/26/16 02:55 10/26/16 04:15 Magnesium Level 1.6mg/dL (1.6-2.6) Troponin T < 0.010ug/L (0.0-0.011) Lipase 17U/L (13-60) White Blood Count 19.4th/mm3 (3.8-10.1) Red Blood Count 3.79mil/mm3 (4.40-5.80) Hemoglobin 10.6g/dL (13.8-17.2) Hematocrit 32.0% (41.0-50.0) Mean Corpuscular Volume 84.4fL (81-100) Mean Corpuscular Hemoglobin 28.0pg (27.0-35.0) Mean Corpuscular Hemoglobin Concent 33.1% (32.0-37.0) Red Cell Distribution Width 13.1% (12.3-15.4) Platelet Count 232bil/L (150-400) Neutrophils (%) (Auto) 83.1% (40-74) Lymphocytes (%) (Auto) 6.4% (14-46) Monocytes (%) (Auto) 9.5% (4-12) Eosinophils (%) (Auto) 0.1% (0-5) Basophils (%) (Auto) 0.2% (0-3) Sodium Level 130mEq/L (134-144) Potassium Level 4.0mEq/L (3.5-5.2) Chloride Level 94mEq/L (97-108) Carbon Dioxide Level 22mmol/L (18-29) Blood Urea Nitrogen 32mg/dL (8-27) Creatinine 1.55mg/dL (0.76-1.27) Estimat Glomerular Filtration Rate 48mL/min (>59) Glucose Level 239mg/dL (60-99) Calcium Level 8.2mg/dL (8.5-10.1) Total Bilirubin 0.7mg/dL (0.0-1.2) Aspartate Amino Transf (AST/SGOT) 12U/L (0-50) Alanine Aminotransferase (ALT/SGPT) 14U/L (0-44) Alkaline Phosphatase 75U/L (25-160) Total Protein 6.1g/dL (6.4-8.4) Albumin 2.5g/dL (3.4-5.0) Lactic Acid Level 0.8mmol/L (0.4-2.0) Assessment/Plan Assessment/Plan A/ - 65 y/o male patient admitted in for emergent surgical debridement of perineal abscesses/Delphine's gangrene/necrotizing fasciitis. Vancomycin ordered for empirical coverage - Before rushed into OR for emergent surgical debridement, patient received one time dose of Zosyn, Vancomycin loading dose of 2250mg iv, and clindamycin - Febrile, WBC: 15.3 with left shift, Blood cultures and culture from wound are pending - Wt: 175kg, ht: 196cm, BMI: 42.7mg/m2; Scr: 1.58 mg/dL (baseline of 1), estimated clearance ~ 63 ml/min, Vd~96L, t1/2~12 hrs - Comitant antibiotics: clindamycin and meropenem P/ - Give vancomycin 1500mg iv q12h. Trough level ordered @0930 on 10/27 Pharmacy will continue to follow and make necessary adjustment Thank you for consulting clinical pharmacy in the care of this patient Анна Pettit Oct 26, 2016 06:43
[2016-10-26] MEDS ORDERED: Propofol 10,000 mCg/mL 20 mL Inj ONE (08:00)
[2016-10-26] MEDS ORDERED: fentaNYL-PF 50 mCg/mL 2 mL Inj ONE (08:00)
[2016-10-26] MEDS ORDERED: Rocuronium 10 mg/mL 5 mL Inj ONE (08:00)
[2016-10-26] MEDS ORDERED: Phenylephrine 10,000 mCg/mL Inj ONE (08:00)
[2016-10-26] MEDS ORDERED: Phenylephrine/NS 100 mCg/mL 10 mL Syringe IVPUSH ONE (08:00)
[2016-10-26] MEDS ORDERED: Succinylcholine Chloride 20 mg/mL 5 mL Inj ONE (08:00)
[2016-10-26] MEDS ORDERED: Ondansetron 2 mg/mL 2 mL Inj ONE (08:00)
[2016-10-26] MEDS: Vancomycin Dose per Pharmacist XX SCH (08:30)
[2016-10-26] MEDS ORDERED: Vancomycin Inj 1,500 MG in 0.9% Sodium Chloride 500 ML IV SCH (10:00)
--- NOTE | 2016-10-26 10:05 | PCM.PNSURG ---
Subjective Date of Service: Oct 26, 2016 Date of Service: Oct 26, 2016 Visit Information: Reason for Visit Perineal Gangrene Surgery/Surgery Date Post-Op Day # Date of Admission: Oct 25, 2016 at 22:25 Hospital Day # Subjective: No acute overnight events Remains on low dose phenylephrine for hemodynamica support/ BP in low 90s, cuff and a-line correlating Patient uncomfortable, but denies audra pain Has not yet voided Denies subjective fevers or chills Overall feels better than pre-op condition Objective Vital Sign- Last 8 Hours Date Time Temp Pulse Resp B/P Pulse Ox O2 Delivery O2 Flow Rate FiO2 10/26/16 08:00 14 100 10/26/16 08:00 37.2 78 14 102/52 100 Nasal Cannula 1.50 10/26/16 05:48 14 100 10/26/16 03:00 Supplement Oxygen 10/26/16 02:40 37.2 79 10 98/45 92 10/26/16 02:35 Simple Mask 10/26/16 02:20 82 15 107/57 95 Room Air 10/26/16 02:15 37.4 82 12 133/38 95 Room Air 10/26/16 02:10 83 15 152/70 94 Room Air 10/26/16 02:05 84 18 125/59 95 Room Air 10/26/16 02:00 85 16 118/60 100 Simple Mask 8 Intake and Output- Last 8 Hour 10/26/16 Cumulative From/Thru 07:00 10/25/16 00:59 - 10/26/16 05:51 Intake Total 1350 ml 3450 ml Output Total 450 ml Balance 1350 ml 3000 ml Intake IV Total 1350 ml 3450 ml Output Estimated Blood Loss 450 ml General: Alert, Oriented X3, Cooperative Neck: Full Range of Motion Lungs: Normal Air Movement Abdomen: Benign SURGICAL WOUND : Wound Location/Description Perineal wound dressed. Will be examined in OR. Neuro: Grossly Neurologically Intact Result Diagram: 10/26/16 0255 10/26/16 025 Assessment & Plan Impression 65M with DM who presents with NSTI of the perineum s/p wide debridement on 10/25. Problems: Plan Return to OR for wound exploration/dressing change and additional debridement as needed Continue insulin gtt for aggressive blood glucose control Wean pressors as tolerated. MAP goal >60 with normal mentation Broad spectrum antibiotics with clindamycin, meropenem, and vancomycin. Narrow as cultures return Roque if unable to void NPO until OR. (sips of clear ok until 2 hours pre-op) Pain control with NITRATE OPERATOR VTE Prophylaxis: SCDs Resuscitation Status: CPR: Attempt Resuscitation Evan Sagastume MD Oct 26, 2016 10:05
--- NOTE | 2016-10-26 10:08 | NUR ---
NUTRITION ASSESSMENT Assess: 65 YO M admitted to CCU for perineal gangrene s/p OR for surgical debridement. Plan to return to OR again today per rounds. Pt has been NPO X 1 day. PMHX: Type 2 diabetes, HTN, depression, anxiety, toe amputation. DIET: NPO. LABS: Na 130, BUN 32, Cr 1.55, Glu 239, Ca 8.2, Alb 2.5, A1c pending. MEDICATIONS: Insulin. GI: No BM noted. SKIN: Perineal gangrene s/p surgical debridement. No wound eval yet. ANTHROPOMETRICS: Wt: 163.5 kg, BMI 42.7 kg/m2, Admit wt: 163.5 kg. Adj. BW: 111.8 kg. ESTIMATED NEEDS: Calories: 4062-1375 kcal/day (25-30 kcal/kg Adj. BW) Protein: 134-168 g/day (1.2-1.5 g/kg Adj. BW) NUTRITION DIAGNOSIS: 1) Inadequate oral intake related to decreased ability to consume sufficient energy as evidenced by NPO status. INTERVENTION: 1) Will await timely advancement of diet. MONITOR/EVALUATE: NPO status, diet advance, labs, wounds, GI/nutrition status. Follow per moderate nutrition risk guidelines.
[2016-10-26] MEDS: Meropenem Inj 2,000 MG in 0.9% Sodium Chloride-Pha MIX 100 ML IV SCH ×2 (10:11→18:09)
--- NOTE | 2016-10-26 11:15 | DRSVH ---
PROCEDURE: US EXTREMITY SONOGRAM LIMITED ([id number]) INDICATIONS: abscess in perineum TECHNIQUE: Real-time scanning was performed of the perineum in the area of current clinical concern, with image documentation. COMPARISON: [facility], CT, CT ABD PELVIS W CON, 10/25/2016, 21:35. FINDINGS: There is inflammatory thickening of the soft tissues in the area of current clinical concer n, within the perineum where CT scanning 10/25/16 had revealed both a collection of gas and no identif ied rim-enhancing fluid collection. IMPRESSION: Increased blood flow is present within the area of inflamed soft tissues, and within the depths of the soft tissues there is gas with prominent echogenicity and ringdown artifact, consistent with the findings noted during CT scanning. CT scanning followup would provide more accurate assess ment for extension of gas more peripherally into the soft tissues, with reference to the comparison C T, if extension of necrotizing fasciitis is clinically suspected. A drainable fluid collection is no t identified. Note: These findings are concordant with the preliminary interpretation. Dictated by: Blu Booker M.D. on 10/26/2016 at 11:08 Approved by: Blu Booker M.D. on 10/26/2016 at 11:12
--- NOTE | 2016-10-26 11:38 | NUR ---
Social Work Note: Brief Note/Multidisciplinary Rounds Pt was discussed in AM rounds today, per MD pt is not medically ready for discharge at this time and still requires CCU. Thomas Holder is a 65 year old male admitted on 10/25/2016 for perineal gangrene. Pt has [employer] out of state insurance coverage. Per MD pt is undergoing depravement today. No MD orders identified at this time. SW to continue to follow for MD orders and discharge planning needs. SW to follow up with pt regarding initial assessment and discharge planning needs when appropriate. Plan: Anticipated discharge home when medically ready. SW to continue to follow for MD and wound care recommendation and orders. SW to follow up with pt regarding initial assessment and discharge planning needs when appropriate. AMMON Trevino
--- NOTE | 2016-10-26 11:53 | DRSVH ---
PROCEDURE: X-RAY CHEST ONE VIEW, PORTABLE ([id number]) INDICATIONS: CENTRAL LINE POSITION TECHNIQUE: One view of the chest was acquired. COMPARISON: [facility], CR, XR CHEST 1VW (PORTABLE), 10/25/2016, 19:44. FINDINGS: Surgical changes and devices: Right IJ CVL present with tip projected over the mid superior vena cava . Lungs and pleura: No pleural effusions or pneumothorax. Lung volumes are low. Mild bilateral inter stitial opacities are present. Mediastinum: Mediastinal contours appear normal. Heart size is normal. Bones and chest wall: No suspicious bony lesions. Overlying soft tissues appear unremarkable. IMPRESSION: 1. Placement of right IJ CVL and mild pulmonary edema is present. Dictated by: Dashawn Olivo [facility] Interpreted: Blu Booker MD on 10/26/2016 at 9:47 Approved by: Blu Booker M.D. on 10/26/2016 at 11:51
[2016-10-26 12:00] LABS: APPEARANCE,URINE HAZY (CLEAR,HAZY); COLOR,URINE YELLOW (YELLOW); OCCULT BLOOD,URINE SMALL (NEGATIVE); UROBILINOGEN,URINE NORMAL (NORMAL)
[2016-10-26] MEDS ORDERED: MeTOProlol 1 mg/mL 5 mL Inj IV PRN (12:40)
[2016-10-26] MEDS ORDERED: Lactated Ringer's 1,000 ML IV ONE (14:22)
--- NOTE | 2016-10-26 14:51 | PCM.HPANE ---
Patient Data Surgeon Admitting Provider:Alber Mims MD Attending Provider:Manisha Moseley DO Primary Care Physician:Prudence Olivo Other Provider: Reason for Visit Perineal Gangrene Ht/WT & BMI Height (Feet): 6 Height (Inches): 5.00 Weight (Kilograms): 163.500 Body Mass Index 42.56 Allergies Coded Allergies: No Known Allergies (Verified , 12/24/15) Past Anesthesia History Anesthesia History: Denies:: Abnormal Airway, Anesthesia Reactions, Difficult Intubation, Malignant Hyperthermia Diabetes History Hx Diabetes?: Yes Type of Diabetes: Type II Glycemic Control: Oral Medication Current Bedside Blood Glucose: 129 MRSA MRSA: No Medications Blood Thinner: Aspirin Hypertension Medication: Yes Home Meds Incl Beta Tiffany: No Reported Medications Ibuprofen 800 Mg [id number] Mg PO DAILYWM Ref 0 10/25/16 B Complex with Vitamin C (Vitamin B-Complex with Vit C)1 Each Tablet1 Each PO QAM 10/25/16 Multivit with Calcium,Iron,Min (Multivitamins S-Leyfgje-Fgek)1 Each Tablet1 Each PO QAM 10/25/16 Ascorbic Acid (Vitamin C)250 Mg Tab.pxpg424 Mg PO DAILYWM #30 TABLET Ref 0 10/25/16 Lisinopril 10 Mg Myiscs89 Mg PO QAM 30 Days Ref 0 07/10/15 Glipizide 5 Mg Bbntua34 Mg PO DAILYWM 30 Days 04/25/14 Metformin 500 Mg Iuaunc446 Mg PO DAILYWM 30 Days Ref 0 04/25/14 Discontinued Reported Medications Duloxetine 60 Mg Capsule.dr60 Mg PO DAILY Ref 0 10/25/16 Beclomethasone Dipropionate (Qvar)8.7 Gm Aer.w.adap1 Puff INHALATION BID #8.7 GM 80 MCG 10/25/16 Albuterol HFA (Proair HFA)8.5 Gm Hfa.aer.ad2 Puffs INHALATION Q4H PRN For Shortness of Breath #1 INHALER 10/25/16 [Ciprofloxacin] No Conflict Mhazz328 Mg PO BID 07/10/15 [Doxycycline] No Conflict Dutdo096 Mg PO BID 07/10/15 Discontinued Scripts Azithromycin (Zithromax (Z-Delmar))250 Mg Abctan826 Mg PO DIRECTED #6 TABLET Ref 0 Take two tablets by mouth on day 1, then take one tablet daily on days 2 through 5. Prov:Tignall, Levon H MD 12/24/15 History History of ENT Problems?: Yes HEENT History: Positive for:: Sinus Problem (SINUSITIS) Denies:: Abnormal Airway Cataracts Difficult Intubation Dysphagia Glaucoma Denture Type: None Teeth Condition: Broken Teeth No Teeth Tooth Decay Inflamed Gums Missing Teeth Hx of Heart Problems?: Yes Cardiovascular History: Positive for:: Edema Hypertension Denies:: Cardiac Surgery Chest Pain Congestive Heart Failure Heart Murmur Irregular Heartbeat Pacemaker Thrombophlebitis Hx of Respiratory Problem?: No Respiratory History: Positive for:: Cough Denies:: Asthma COPD Chest Surgery Dyspnea Emphysema Hemoptysis Pneumonia Tuberculosis Use of C-PAP Machine Hx Neurologic Problems?: No Neurological History: Denies:: Alzheimer's Disease CVA Dementia Dizziness Headaches Parkinson's Disease Seizures Hx of GI Problems?: Yes Hx of Problems?: Yes Genitourinary History: Positive for:: Kidney Stones Denies:: HX of Hemodialysis Urinary Tract Infection HX of Peritoneal Dialysis: No Male Hx: Positive for:: Testicular Surgery Denies:: Prostate Problems Scrotal Mass Skin History: Positive for:: Pressure Ulcers (ULCERS LT LOWER LEG (RESOLVED) & FOOT ) Denies:: History Skin Disorders? Other Skin Pertinent History: stasis ulcers in legs Hx Musculoskeletal Problems?: Yes Musculoskeletal History: Denies:: Back Injury Joint Replacement Musculoskeletal Trauma Hx of Psycho/Social Problems?: Yes Psycho Social History: Positive for:: Anxiety Hx Depression Denies:: Bipolar Disorder Suicide Attempt Hx Surgeries?: Yes Hx Any Other Health Problems?: Yes Other History: Positive for:: Hospitalization Denies:: Cancer Endocrine Disease Thyroid Disease History Blood Transfusions: Positive for:: Accept Blood Products? 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 Category 1B: Patient has history of documented sleep apnea, and HAS received any narcotic , sedative or anesthesia administration during this stay Category 2: Patient has SUSPECTED Obstructive Sleep Apnea, and HAS received any narcotic , sedative or anesthesia administration during this stay. Category 3: Patient has SUSPECTED Obstructive Sleep Apnea and HAS NOT received narcotic, sedative or anesthesia administration during this stay. Category 4: Outpatient in Procedural Areas with known sleep apnea or who screen positive for High Risk via the STOP/BANG questionnaire. High Risk, =/>3 Yes Exam Exam Vital Signs Vital Signs Date Time Temp Pulse Resp B/P Pulse Ox O2 Delivery O2 Flow Rate FiO2 10/26/16 08:00 14 100 10/26/16 08:00 37.2 78 14 102/52 100 Nasal Cannula 1.50 10/26/16 05:48 14 100 General Appearance: Alert, Oriented X3, Cooperative HEENT/AIRWAY: MP 2, Neck Movement (Ok), Mouth Opening (Wide), Other (Poor dentition) Lungs: Normal Air Movement Heart: Regular Rate/Rhythm, Normal S1, Normal S2 Meds/Labs/Diagnostics Admission Meds Current Medications Sodium Chloride (Normal Saline) 1,000 ml @ 0 mls/hr Q0M ONCE IV Last administered on 10/25/16 20:08; Start 10/25/16 at 19:29; Stop 10/25/16 at 19:31 ; Status DC Aspirin (Aspirin Chewable) 324 mg NOW ONCE PO Last administered on 10/25/16 20:24; Start 10/25/16 at 20:05; Stop 10/25/16 at 20:06; Status DC Pantoprazole 40 mg 40 mg ONCE ONCE IVPUSH Last administered on 10/25/16 20:24 ; Start 10/25/16 at 20:05; Stop 10/25/16 at 20:06; Status DC Sodium Chloride 1,000 ml @ 0 mls/hr Q0M ONCE IV Last administered on 21:24; Start 10/25/16 at 20:25; Stop 10/25/16 at 20:26; Status DC Vancomycin HCl 2250 mg/Sodium Chloride 500 ml @ 250 mls/hr ONCE ONCE IV Last administered on 10/25/16 22:31; Start 10/25/16 at 20:40; Stop 10/25/16 at 22:39 ; Status DC Piperacillin Sod/ Tazobactam Sod/ Dextrose/Water (Zosyn 3.375 Gm Inj/D5W Minibag Plus) 50 ml @ 100 mls/hr ONCE ONCE IV Last administered on 10/25/16 21:24; Start 10/25/16 at 21:05; Stop 10/25/16 at 21:34; Status DC Pharmacy Consult 1 ea 1 ea DAILY XX Last administered on 10/26/16 08:30; Start 10/26/16 at 08:30 Clindamycin Phosphate/ Dextrose 900 mg/ Premix 50 ml @ 100 mls/hr Q8 IV Last administered on 10/26/16 08:28; Start 10/26/16 at 00:30 Sodium Chloride 1,000 ml @ 100 mls/hr Q10H IV Last administered on 10/26/16 02:51; Start 10/25/16 at 23:17 Lactated Ringer's 1,000 ml @ ud STK-MED ONCE IV Last administered on 23:57; Start 10/25/16 at 23:57; Stop 10/26/16 at 00:27; Status DC Insulin Human Regular 100 unit/ Sodium Chloride 101 ml @ 0 mls/hr Q0M IV Last administered on 10/26/16 03:17; Start 10/26/16 at 01:13 Phenylephrine HCl 20613 mcg/ Dextrose/Water 252 ml @ 66.15 mls/ hr Q3H49M IV Last administered on 10/26/16 09:30; Start 10/26/16 at 01:45 Meropenem 2000 mg/ Sodium Chloride 100 ml @ 200 mls/hr ONCE ONCE IV Last administered on 10/26/16 04:04; Start 10/26/16 at 03:05; Stop 10/26/16 at 03:34 ; Status DC Meropenem 2000 mg/ Sodium Chloride 100 ml @ 33.333 mls/ hr Q8H IV Last administered on 10/26/16 10:11; Start 10/26/16 at 10:00 Vancomycin HCl/ Sodium Chloride (Vancocin Inj/ Normal Saline) 500 ml @ 333.333 mls/hr Q12H IV Last administered on 10/26/16 09:31; Start 10/26/16 at 10:00 Bedside Blood Glucose: 129 Labs Test 10/25/16 19:55 10/26/16 02:55 10/26/16 04:15 10/26/16 11:25 Magnesium Level 1.6mg/dL (1.6-2.6) Troponin T < 0.010ug/L (0.0-0.011) Lipase 17U/L (13-60) White Blood Count 19.4th/mm3 (3.8-10.1) Red Blood Count 3.79mil/mm3 (4.40-5.80) Hemoglobin 10.6g/dL (13.8-17.2) Hematocrit 32.0% (41.0-50.0) Mean Corpuscular Volume 84.4fL (81-100) Mean Corpuscular Hemoglobin 28.0pg (27.0-35.0) Mean Corpuscular Hemoglobin Concent 33.1% (32.0-37.0) Red Cell Distribution Width 13.1% (12.3-15.4) Platelet Count 232bil/L (150-400) Neutrophils (%) (Auto) 83.1% (40-74) Lymphocytes (%) (Auto) 6.4% (14-46) Monocytes (%) (Auto) 9.5% (4-12) Eosinophils (%) (Auto) 0.1% (0-5) Basophils (%) (Auto) 0.2% (0-3) Sodium Level 130mEq/L (134-144) Potassium Level 4.0mEq/L (3.5-5.2) Chloride Level 94mEq/L (97-108) Carbon Dioxide Level 22mmol/L (18-29) Blood Urea Nitrogen 32mg/dL (8-27) Creatinine 1.55mg/dL (0.76-1.27) Estimat Glomerular Filtration Rate 48mL/min (>59) Glucose Level 239mg/dL (60-99) Calcium Level 8.2mg/dL (8.5-10.1) Total Bilirubin 0.7mg/dL (0.0-1.2) Aspartate Amino Transf (AST/SGOT) 12U/L (0-50) Alanine Aminotransferase (ALT/SGPT) 14U/L (0-44) Alkaline Phosphatase 75U/L (25-160) Total Protein 6.1g/dL (6.4-8.4) Albumin 2.5g/dL (3.4-5.0) Lactic Acid Level 0.8mmol/L (0.4-2.0) Urine Color Yellow (YELLOW) Urine Appearance Hazy (CLEAR,HAZY) Urine pH 6.0 (5.0-8.0) Urine Specific Bailey 1.025 (1.003-1.035) Urine Protein 300mg/dL (NEG,TRACE) Urine Glucose (UA) 500mg/dL (NEGATIVE) Urine Ketones Negativemg/dL (NEGATIVE) Urine Occult Blood Small (NEGATIVE) Urine Nitrite Negative (NEGATIVE) Urine Bilirubin Negative (NEGATIVE) Urine Urobilinogen Normalmg/dL (NORMAL) Urine Leukocyte Esterase Negative (NEGATIVE) Urine RBC 3-10/hpf (0-2) Urine WBC 0-5/hpf (0-5) Urine Epithelial Cells Occasional/hpf (NONE-MOD) Urine Crystals None seen (NONE SEEN) Urine Bacteria Few/hpf (NONE-FEW) Urine Hyaline Casts None/lpf (NONE) Urine Granular Casts None seen (NONE SEEN) Urine Waxy Casts None seen (NONE SEEN) Urine Red Blood Cell Casts None seen (NONE SEEN) Urine White Blood Cell Casts None seen (NONE SEEN) Urine Mucus None seen (None Seen) Urine Trichomonas None seen (NONE SEEN) Urine Yeast None (NONE SEEN) Urinalysis Comment None Urine Culture Reflexed Not indicated Plan Impression Patient chart reviewed, patient interviewed and anesthestic plan with risks, benefits, and alternatives discussed, and informed consent obtained. NPO per Anesth. Guidelines: Yes ASA Physical Status: ASA3 Severe Disease Anesthetic Support Modalities: [place] Scope Anesthetic Plan: GA Bene/Risks/Altern/Consents: Yes HP Complete Prior to Induction: Yes Other Discussed GETA. All questions were answered and he agrees to proceed. Brown Bearden MD Oct 26, 2016 12:14
[2016-10-26] MEDS ORDERED: Phenylephrine 10,000 mCg/mL Inj IVPUSH PRN (14:55)
--- NOTE | 2016-10-26 15:32 | PCM.ANEP1 ---
Post Anesthesia PACU Phase 1 Assessment Vital Signs Vital Signs Date Time Temp Pulse Resp B/P Pulse Ox O2 Delivery O2 Flow Rate FiO2 10/26/16 15:30 77 15 100/55 100 Simple Mask 8 10/26/16 15:25 76 13 106/44 100 Simple Mask 8 10/26/16 15:24 37.0 75 13 106/44 100 Simple Mask 8 10/26/16 08:00 14 100 10/26/16 08:00 37.2 78 14 102/52 100 Nasal Cannula 1.50 Anesthetic Administered: GA Level of Alertness: Awake, talking TRAYLOR's with Equal Strength: Yes Pain: No Nausea or Vomiting: No CV Function & Hydration Stable: No (hypotension) Airway Device: Oxygen Delivery: Simple Mask Lungs: Normal Air Movement PACU Phase 2 Assessment Complications: No Follow up Care: Yes Patient Instructions Provided: N/A Brown Bearden MD Oct 26, 2016 15:32
[2016-10-26] MEDS: HYDROmorphone 1 mg/mL Inj IVPUSH PRN ×2 (15:54→16:11)
--- NOTE | 2016-10-26 15:57 | PCM.SURGPO ---
Immediate Operative Note Date of Surgery: Oct 26, 2016 Pre Operative Diagnosis Necrotizing soft tissue infection of the perineum s/p debridement last night Post Operative Diagnosis Same Procedure Examination under anesthesia, washout, sharp debridement, dressing change Surgeon and Balance Clerk Surgeon: Kwame Higuera MD Assistants: Blu Batres PAC and Cristhian Kuo DO Findings Wound bed with minimal necrotic tissue - debrided sharply and sent for culture Complications There were no periprocedural complications identified. Surgical Specimen Removed: Yes Specimen sent to Pathology: No Anesthetic Administered: GA Grafts, Implants: None Output, Estimated Blood Loss: 0 Blood Admin during surgery: No Attending Statement Supervisor Engine Assembly listed was not medically necessary for the successful completion of the case Kwame Higuera MD Oct 26, 2016 15:57
--- NOTE | 2016-10-26 17:39 | NUR ---
BP supported with Phenylephrine. IVFs infusing. Blood sugars well controlled with insulin gtt per non-DKA protocol, 130s. 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 Denies nausea and requesting dinner, which has been ordered. Has voided once via urinal, 600 mls dark erin urine. No stool. Abcess debrided in OR this afternoon, returning at 1600; balbina-anal dressing CDI. Has c/o back discomfort, treated effectively with heating pad/meds. Sinus rhythm on tele. Afebrile.
--- NOTE | 2016-10-26 18:03 | PCM.PNMED ---
Subjective Date of Service Oct 26, 2016 Subjective Patient went to surgery yesterday for wound debridement by Dr. Delacruz. Patient remained hypotensive posts procedure despite fluids and subsequently required pressor therapy. Placed on Phenylephrine 20,000mcg through a central venous catheter. Blood pressure responded accordingly. Patient laying in bed without any complaints. Denies any CP, SOB, ABD pain. Patient feels pain is being managed well. Exam Vital Signs Vital Sign - Last Date Time Temp Pulse Resp B/P Pulse Ox O2 Delivery O2 Flow Rate FiO2 10/26/16 17:00 12 98 10/26/16 16:01 71 110/60 Simple Mask 8 10/26/16 16:00 36.6 Intake and Output 10/25/16 10/25/16 10/26/16 Cumulative From/Thru 15:00 23:00 07:00 10/25/16 00:59 - 10/26/16 05:51 Intake Total 2000 ml 1350 ml 3450 ml Output Total 450 ml Balance 2000 ml 1350 ml 3000 ml Intake IV Total 2000 ml 1350 ml 3450 ml Estimated Blood Loss 450 ml Exam Constitutional: Awake and Alert. No acute distress Eyes: pupils equal round and reactive. EOMI Heart: Regular rate and rhythm. Mild lower extremity edema with signs of chronic venoustasis Lungs: Clear to auscultation bilaterally. No wheeze, rales, or rhonchi ABD: Soft, and nontender. Bowel sounds present : Surgical site examined without overt signs of infection or purulent drainage. Skin: warm, dry Neuro: CN II-XII intact, no focal deficits Psych: mood and affect appropriate. IVs and Medications IV Fluids 2L NS 100ml/hr Vancomycin 1,250mg 250ml/hr Phenylepherine 20,000mcg 252ml @66.15mls/hr Medications Reviewed: Medications were reviewed in detail Medications Vancomycin 1,250mg 250ml/hr Phenylepherine 20,000mcg 252ml @66.15mls/hr Lab and Diagnostics Item Value Date Time Red Blood Count 3.79 mil/mm3 L 10/26/16254 Mean Corpuscular Volume 84.4 fL 10/26/16 025 Mean Corpuscular Hemoglobin 28.0 pg 10/26/16254 Mean Corpuscular Hemoglobin Concent 33.1 % 10/26/16254 Red Cell Distribution Width 13.1 % 10/26/16254 Neutrophils (%) (Auto) 83.1 % H 10/26/16254 Lymphocytes (%) (Auto) 6.4 % L 10/26/16254 Monocytes (%) (Auto) 9.5 % 10/26/16254 Eosinophils (%) (Auto) 0.1 % 10/26/16254 Basophils (%) (Auto) 0.2 % 10/26/16254 Estimat Glomerular Filtration Rate 48 mL/min 10/26/16254 Lactic Acid Level 0.8 mmol/L 10/26/16414 Calcium Level 8.2 mg/dL L 10/26/16254 Total Bilirubin 0.7 mg/dL 10/26/16254 Aspartate Amino Transf (AST/SGOT) 12 U/L 10/26/16254 Alanine Aminotransferase (ALT/SGPT) 14 U/L 10/26/16254 Alkaline Phosphatase 75 U/L 10/26/16254 Total Protein 6.1 g/dL L 10/26/16254 Albumin 2.5 g/dL L 10/26/16254 Result Diagram: 10/26/1625410/26/16254 Microbiology MRSA nasal - negative X-Rays, CTs and MRIs Date of Service: 10/25/162104 PROCEDURE: CT ABDOMEN AND PELVIS WITH CONTRAST ([id number]) 1. Subcutaneous gas collection within the left perineum, consistent with infection, with gas-forming organism (necrotizing fasciitis). 2. Cholelithiasis. 3. Small hiatal hernia. 4. Findings discussed with Dr. Mirza on 10.25.16 at 2148 hrs. Dictated by: Monika Bates M.D. on 10/25/2016 at 21:43 Approved by: Monika Bates M.D. on 10/25/2016 at 21:49 Date of Service: 10/25/16 1929 PROCEDURE: X-RAY CHEST ONE VIEW, PORTABLE ([id number]) IMPRESSION: No acute process. Dictated by: Monika Bates M.D. on 10/25/2016 at 20:08 Approved by: Monika Bates M.D. on 10/25/2016 at 20:08 Assessment & Plan Patient is a 65-year-old male with a history of type 2 diabetes, and past history of perineal abscesses who presents with pain and swelling in his perineal area for one week. Admitted for Delphine's gangrene. Acute sepsis. Present on admission. - Secondary to Delphine's gangrene in the context of uncontrolled type 2 diabetes. Temp 38.6, HR 106, RR 22, WBC 15.3. - NS @ 100 ml/hr - Blood cultures pending - Wound cultures 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 - Patient presents with necrotizing fasciitis of the perineal area with gas forming organisms. CT as described above. Based on history, he is of intermediate cardiovascular risk for a high risk surgery. However, given the emergent nature of the surgery, will proceed with surgical debridement. - Zosyn, clindamycin, and vancomycin IV started in ED and post op - will continue with meropenem, clindamycin and vancomycin - Dr. Mims of General Surgery is consulted and will take pt to surgery urgently. We appreciate his expertise. 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 Sedation will be continued with fentanyl and propofol Acute kidney injury. Present on admission. - Cr 1.58 on admission, secondary to sepsis. Pt denies history of CKD. Based on previous hospitalizations, baseline Cr likely around 1.0. - NS @ 100 ml/hr - Avoid nephrotoxic medications - Monitor BMP Type 2 Diabetes, Uncontrolled, Present on Admission, Chronic - BG 320 on admission. Pt reports BG in 200s for last few days. Possibly acute secondary to infection. Pt is NPO for now. - Hold home glipizide and metformin - Insulin gtt. - A1c pending - Patient now eating, placed on sliding scale insulin. Hypertension, acute on chronic. - Hypotensive (107/57) after surgery. - Phenylepherine 20,000mcg 252ml @ 66.15mls/hr started through Central Venous Catheter - Continue to monitor BP - Hold home lisinopril. Other Medical Conditions GERD - GI prophylaxis with pepcid Depression and Anxiety - Bowel regimen as needed - Antiemetic as needed Patient is admitted under inpatient status with expected length of stay greater than 2 midnights due to severity of presenting symptoms, risk of adverse event, and complexity of treatment plan. GI Prophylaxis: Proton Pump Inhibitor VTE Prophylaxis: SCDs VTE Mechanical Devices: Intermittant Pneumatic CD Resuscitation Status: CPR: Attempt Resuscitation Attending Statement The patient was seen and examined together with Dr. Dorman on 10/26/16 and I have added additional information to the note above. Sj Dorman DO Oct 26, 2016 18:03 Manisha Moseley DO Oct 30, 2016 13:00
[2016-10-26] MEDS ORDERED: Glucose 40% Oral Gel 15 Gm Tube PO PRN (18:15)
[2016-10-26] MEDS: Insulin LISPRO 300 Unit/3 mL Inj SUBQ SCH ×2 (18:24→21:40)
[2016-10-26] MEDS: Vancomycin Inj 1,250 MG in 0.9% Sodium Chloride 250 ML IV SCH (19:46)
[2016-10-26] MEDS ORDERED: Sodium Chloride LOK Flush 10 mL Syringe IVFLUSH PRN ×2 (20:20)
[2016-10-26] MEDS: Ondansetron 2 mg/mL 2 mL Inj IVPUSH PRN (21:43)
--- NOTE | 2016-10-26 21:56 | OP ---
[address] [address] OPERATIVE REPORT PATIENT: MANNY PRESTON : 1950 MR#: [id number] ADMIT: 10/25/2016 JOB ID: [id number] DATE OF SURGERY: 10/26/2016 PREOPERATIVE DIAGNOSIS(ES): Perineal necrotizing soft tissue infection status post debridement in the night by Dr. Mims. POSTOPERATIVE DIAGNOSIS(ES): Perineal necrotizing soft tissue infection status post debridement in the night by Dr. Mims. PROCEDURE PERFORMED: Washout of perineal wound with sharp debridement and dressing change. SURGEON: Kwame Higuera MD. ASSISTANTS: Blu Batres PA-C and Cristhian Kuo D.O. INDICATIONS: The patient is a 65-year-old gentleman with a previous history of perineal necrotizing soft tissue infection debrided by Urology in 2005 who presented last night with 1-week history of perineal discomfort and cellulitis. A CAT scan demonstrates soft tissue gas and my partner, Dr. Alber Mims, took him to the operating room last night and found necrotizing soft tissue infection prompting him to debride his perineal wound. He felt like he got to healthy tissue all around, and the patient is able to void after the operation without any trouble and he is still on some phenylephrine but was awake and talking and comfortable and was brought back to the operating room for re-examination of the wound with possible debridement as an option. PROCEDURE DETAILS: He was placed in a supine position and underwent smooth induction of general anesthesia. Was then placed in lithotomy position and the surgical time-out was undertaken using safety checklist, and all were in agreement. We removed the dressing and examined the wound and other than some scattered necrotic fibrinous debris, the wound overall looked pretty good. So, we proceeded to probe the wound with Betadine and then performed a sharp debridement with DeBakey forceps and Metzenbaum scissors of necrotic-appearing fat. The debridement significantly did not change the dimensions of the wound. After that, we irrigated the wound with saline and again packed it with saline-soaked Kerlix and dressed it with ABD pad and mesh underwear. The procedure was terminated and the patient was recovered from anesthesia and was taken to the recovery room in a stable condition. MIRI
[2016-10-27] VITALS (7 sets, daily range): BP systolic 96–132; BP diastolic 44–71; PULSE 72–83; RESP 10–18; O2SAT 96–100
[2016-10-27] MEDS: Clindamycin Inj 900 MG in IV Premix 1 EACH IV SCH ×3 (00:28→17:19)
[2016-10-27] MEDS: Phenylephrine 20 mg/250 mL D5W IV SCH ×14 (00:39→23:33)
[2016-10-27] MEDS: Meropenem Inj 2,000 MG in 0.9% Sodium Chloride-Pha MIX 100 ML IV SCH ×3 (02:17→18:21)
[2016-10-27] MEDS: 0.9% Sodium Chloride 1,000 ML IV SCH ×2 (02:39→17:19)
--- NOTE | 2016-10-27 02:43 | NUR ---
P) Pain/cardiac/respiratory Pt. 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 Pt. also c/o back and neck pain, relieved with K-pad and hot pack. Cardiac rhythm sinus with an IVCD, still requiring phenylephrine for BP support, only at 0.3mcg/kg/min. but when stopped his systolic BP dropped into the 70's. Lungs very decreased in bases, some may be due to body habitus, requiring 6L O2 per N/C to keep SPO2 >90 when sleeping, SPO2 is 100% when he is awake. Pt. voided incontinently, dressing "panty" changed, pads were draining a moderate amount of sero-slightly sanguinous drainage. I) Meds per 's orders, cont. close monitoring, enc. pulmonary hygiene, floating heels. E) Resting quietly with eyes closed. Addendum: 10/27/16 at 0254 by CHANNING RAMÍREZ RN Fever, low grade temp tonight, T-max so far 37.2c orally.
[2016-10-27 04:54] LABS: BASOPHILS % (AUTO) 0.5 % (0-3); EOSINOPHILS % (AUTO) 5.8 % (0-5); MONOCYTES % (AUTO) 7.2 % (4-12); Mean Corpuscular Hemoglobin 28.2 pg (27.0-35.0); Mean Corpuscular Volume 87.1 fL (81-100); NEUTROPHILS % (AUTO) 79.7 % (40-74); Platelet Count 181 bil/L (150-400)
--- NOTE | 2016-10-27 07:24 | PCM.PNSURG ---
Subjective Date of Service: Oct 27, 2016 Visit Information: Reason for Visit Perineal Gangrene Surgery/Surgery Date debridement of peritoneal wound/October 25 Post-Op Day # 1 Date of Admission: Oct 25, 2016 at 22:25 Hospital Day #1 Subjective: Mr. Stroud is a 65-year-old male, 1 day status post debridement of peritoneal wound, with cultures sent for identification of likely gas-forming organisms. Today the patient is resting comfortably in bed, and his pain is controlled. He denies any fevers, sweats, chills. Postop General: No Complaints Gastrointestinal: No N/V Pain Management: IV Push Objective Objective Patient is afebrile, and hemodynamically stable Vital Sign- Last 8 Hours Date Time Temp Pulse Resp B/P Pulse Ox O2 Delivery O2 Flow Rate FiO2 10/27/16 04:00 36.9 72 10 123/59 100 Nasal Cannula 6.00 10/27/16 04:00 10 100 10/27/16 00:00 12 96 10/27/16 00:00 37.2 72 18 96/71 100 Nasal Cannula 6.00 Intake and Output- Last 8 Hour 10/27/16 Cumulative From/Thru 07:00 10/25/16 00:59 - 10/27/16 06:18 Intake Total 2572 ml 8716 ml Output Total 500 ml 1550 ml Balance 2072 ml 7166 ml Intake Oral 100 ml 100 ml IV Total 2472 ml 8616 ml Output Urine Total 500 ml 1100 ml Estimated Blood Loss 450 ml # Voids 1 1 # Bowel Movements 0 General: Alert, Oriented X3, Cooperative, No Acute Distress Lungs: Normal Air Movement Heart: Exam Unremarkable Abdomen: Benign Extremities: Warm Result Diagram: 10/27/16 0425 10/27/16 0425 Lab & Micro Results: Wound cultures pending Assessment & Plan Impression 65-year-old male postop day 1 for debridement of perineal wound suspicious for Delphine's gangrene -Continue IV vancomycin -Consult wound care for dressing change and possible wound VAC. -Continue pain medications as needed Problems: VTE Prophylaxis: SCDs Resuscitation Status: CPR: Attempt Resuscitation Cristhian Kuo DO Oct 27, 2016 07:24
[2016-10-27] MEDS: Vancomycin Inj 1,250 MG in 0.9% Sodium Chloride 250 ML IV SCH (07:55)
[2016-10-27] MEDS: Insulin LISPRO 300 Unit/3 mL Inj SUBQ SCH ×4 (07:58→21:47)
[2016-10-27] MEDS: Vancomycin Dose per Pharmacist XX SCH (07:58)
[2016-10-27] MEDS ORDERED: Vancomycin Serum Trough XX ONE ×2 (09:30→20:30)
[2016-10-27] MEDS: Ondansetron 2 mg/mL 2 mL Inj IVPUSH PRN (09:30)
--- NOTE | 2016-10-27 09:45 | PCM.PNMED ---
Subjective Date of Service Oct 27, 2016 Subjective Nursing reports patient has 8/10 pain, but this is tolerable to him. States Dilaudid makes him nauseous, patient refused. Patient has received doses of Zofran 4-8mg IV and has responded well. Attempt was made to wean patient off of pressors, however patient's systolic blood pressure would fall into the 70' s. Patient remains on0.3mcg/kg/min Phenylepherine. Nursing staff also noted that O2 saturation would drop below the 90s while patient sleeps. Placed on 6L 02NC, and O2 saturation responded well. Patient had some mild sero-sanguinous drainage from surgical site, but no overt signs of infection or purulent drainage. Patient laying in bed comfortably. Patient reports pain to be a 6/10 currently. He states he had one episodes of urinary incontinence yesterday, but has been making urine well and had one bowel movement yesterday. He has been passing flatus this morning and feels like he could have another bowel movement today. Denies any CP, SOB, ABD pain. Has a mild headache that has been present since admission, but is controlled with Dilaudid. ROS negative otherwise as noted above. Exam Vital Signs Vital Sign - Last Date Time Temp Pulse Resp B/P Pulse Ox O2 Delivery O2 Flow Rate FiO2 10/27/16 08:00 36.5 83 14 132/64 97 Room Air 10/27/16 04:00 6.00 Intake and Output 10/26/16 10/26/16 10/27/16 Cumulative From/Thru 15:00 23:00 07:00 10/25/16 00:59 - 10/27/16 06:18 Intake Total 300 ml 2394 ml 2572 ml 8716 ml Output Total 600 ml 500 ml 1550 ml Balance 300 ml 1794 ml 2072 ml 7166 ml Intake Oral 100 ml 100 ml IV Total 300 ml 2394 ml 2472 ml 8616 ml Output Urine Total 600 ml 500 ml 1100 ml Estimated Blood Loss 0 ml 450 ml # Voids 1 1 # Bowel Movements 0 0 Exam Constitutional: Awake and alert. conversive and cooperative. Patient in no acute distress Eyes: pupils equal round and reactive. EOMI Heart: Regular rate and rhythm. No murmurs. Mild bilateral extremity edema with signs of chronic venoustasis. Lungs: Clear to auscultation. No wheeze, rales, or rhonchi. ABD: Soft and nontender. Bowel sounds present throughout : surgical site noted (15cm Lx4cm Wx4cm) with serosanguinous drainage. Skin: warm, dry, Neuro: CN II-XII intact. No focal deficits. Psych: appropriate mood and affect. IVs and Medications IV Fluids NS 1L 100ml/hr Dextrose/Sodium Chloride 1L 50ml/hr Meropenem 100ml Vancomycin 250ml Clindamycin 50ml @100ml/hr Medications Reviewed: Medications were reviewed in detail Medications High Risk Meds Include Meropenem 100ml - day 2 Vancomycin 250ml - day 2 Clindamycin 50ml @100ml/hr - day 2 Phenylepherine 0.5mcg/kg/min Lab and Diagnostics Item Value Date Time Red Blood Count 3.26 mil/mm3 L 10/27/16424 Mean Corpuscular Volume 87.1 fL 10/27/16424 Mean Corpuscular Hemoglobin 28.2 pg 10/27/16424 Mean Corpuscular Hemoglobin Concent 32.4 % 10/27/16424 Red Cell Distribution Width 13.5 % 10/27/16424 Neutrophils (%) (Auto) 79.7 % H 10/27/16424 Lymphocytes (%) (Auto) 5.8 % L 10/27/16424 Monocytes (%) (Auto) 7.2 % 10/27/16424 Eosinophils (%) (Auto) 5.8 % H 10/27/16424 Estimat Glomerular Filtration Rate 41 mL/min 10/27/16424 Calcium Level 7.2 mg/dL L 10/27/16424 Total Bilirubin 0.3 mg/dL 10/27/16424 Aspartate Amino Transf (AST/SGOT) 11 U/L 10/27/16424 Lactic Acid Level 0.8 mmol/L 10/26/16414 Alanine Aminotransferase (ALT/SGPT) 12 U/L 10/27/16424 Alkaline Phosphatase 70 U/L 10/27/16424 Total Protein 5.7 g/dL L 10/27/16424 Albumin 2.2 g/dL L 10/27/16424 Result Diagram: 10/27/1642410/27/16424 Microbiology MRSA nasal - negative Blood cultures show no growth after 24hours Wound cultures show no organisms. X-Rays, CTs and MRIs Date of Service: 10/25/162104 PROCEDURE: CT ABDOMEN AND PELVIS WITH CONTRAST ([id number]) 1. Subcutaneous gas collection within the left perineum, consistent with infection, with gas-forming organism (necrotizing fasciitis). 2. Cholelithiasis. 3. Small hiatal hernia. 4. Findings discussed with Dr. Mirza on 10.25.16 at 2148 hrs. Dictated by: Monika Bates M.D. on 10/25/2016 at 21:43 Approved by: Monika Bates M.D. on 10/25/2016 at 21:49 Date of Service: 10/25/161928 PROCEDURE: X-RAY CHEST ONE VIEW, PORTABLE ([id number]) IMPRESSION: No acute process. Dictated by: Monika Bates M.D. on 10/25/2016 at 20:08 Approved by: Monika Bates M.D. on 10/25/2016 at 20:08 Assessment & Plan Patient is a 65-year-old male with a history of type 2 diabetes, and past history of perineal abscesses who presents with pain and swelling in his perineal area for one week. Admitted for Delphine's gangrene. Acute sepsis. Present on admission. - Secondary to Delphine's gangrene in the context of uncontrolled type 2 diabetes. Temp 38.6, HR 106, RR 22, WBC 15.3. - NS @ 100 ml/hr - Blood cultures show no growth after 24hrs - Wound cultures show no organisms. 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 - Patient presents with necrotizing fasciitis of the perineal area with gas forming organisms. CT as described above. Based on history, he is of intermediate cardiovascular risk for a high risk surgery. However, given the emergent nature of the surgery, will proceed with surgical debridement. - Zosyn, clindamycin, and vancomycin IV started in ED and post op - will continue with meropenem, clindamycin and vancomycin - Dr. Mims of General Surgery was consulted and took the patient to surgery urgently (10/26/16). - Patient to go to surgery again later today - Diabetic Diet - Dilaudid ASSOCIATE PROFESSOR OF GEOGRAPHY, patient will likely return intubated into the CCU post op. Sedation will be continued with fentanyl and propofol Acute kidney injury. Present on admission. - Today's Cr up to 1.7, likely secondary to septic picture. Will continue to monitor after treating wounds and after we stop pressors.Cr 1.58 on admission, secondary to sepsis. - NS @ 100 ml/hr - Avoid nephrotoxic medications - Monitor BMP Type 2 Diabetes, Uncontrolled, Present on Admission, Chronic - BG 320 on admission. Pt reports BG in 200s for last few days. Possibly acute secondary to infection. - Hold home glipizide and metformin until off of pressors. - Insulin gtt. - A1c 11. - Consider adjusting home meds after patient is off of pressors. - Patient now eating, placed on sliding scale insulin. Hypertension, acute on chronic. - Hypotensive, continue pressors - Continue Phenylepherine 20,000mcg 252ml @ 66.15mls/hr started (10/26). Trial to remove pressors depending on patient's tolerance. - Continue to monitor BP - Hold home lisinopril. Other Medical Conditions GERD - GI prophylaxis with pepcid Depression and Anxiety - Bowel regimen as needed - Antiemetic as needed Disposition: Patient is progressing daily and is now being weaned off of the pressors. We will follow up with the patient after this next surgery. Patient will most likely need a wound VAC and possibly a senior care facility afterwards in order to care for the wound VAC. We will readdress this with the patient once he is clinically stable. GI Prophylaxis: Proton Pump Inhibitor VTE Prophylaxis: SCDs VTE Mechanical Devices: Intermittant Pneumatic CD Resuscitation Status: CPR: Attempt Resuscitation Attending Statement The patient was seen and examined together with Dr. Dorman on 10/27/2016 and I have added additional information to the note above. Sj Dorman DO Oct 27, 2016 09:45 Manisha Moseley DO Oct 30, 2016 17:07
--- NOTE | 2016-10-27 12:38 | NUR ---
Inpatient Wound Nurse Patient seen for evaluation of debrided area of perineal abscess. Wound measured 15 cm L x 4 cm W x 4 cm D. Removed Kerlix (more than one roll) was non-odorous and saturated with sanguinous-serosang drainage. Beefy red and granulating tissue observed in clean wound bed. Edges can be approximated but opening under incision requires NPWT. After flushing wound, one piece of black foam was placed. Multiple skin folds and creases were filled with stoma paste. 175 suction applied and vac secured without leaks easily. Patient provided information on importance of keeping vac drapes clean and dry, especially consistently requesting assistance with using urinal. Patient stated understanding. CWON to see patient on .
--- NOTE | 2016-10-27 17:49 | NUR ---
States he is feeling better today. Pain controlled with COMMERCIAL FINANCE MANAGER Dilaudid. Mild nausea reported, relieved with Zofran. Childs appetite. Frequent turning/repositioning independently. Wound Vac placed by wound therapist today, scant serous output. Right radial arterial line discontinued this evening, unable to obtain reliable waveform. Maintaining BPs 90-100s on .2mcg Phenylephrine, unable to wean off. Sleep apnea with occasional desats, 02 by NC on while napping. Patient denies he has sleep apnea, stating he has been "[facility]...[facility] told me I don't have sleep apnea". A/O and in good spirits. No BM, voided X1 500ml erin urine. SQ insulin coverage for elevated bedside blood sugars. Sinus rhythm on tele, no ectopy noted.
--- NOTE | 2016-10-27 21:12 | PCM.PHAPRO ---
Progress Date of Service: Oct 27, 2016 Perineal pain Vancomycin management per pharmacy Indication: Delphine's gangrene, necrotizing fasciitis Goal trough: 15-20 Pertinent info: - SCr has increased slightly to 1.79 (from 1.55). - Trough today is 20.8. - Pt weighs 169.4, BMI 44.3 Vancomycin trough is supratherapeutic. As this is the first trough and patient is at high risk for accumulation, anticipate that trough will continue to rise at this dose. Reduce dose to vancomycin 1000 mg IV Q12H. Trough has been scheduled for 10/29/16 at 0830. Pharmacy to continue to monitor and dose vancomycin. Thank you, Mau Queen Pharmacist Mau Queen Oct 27, 2016 21:12
[2016-10-27] MEDS: Vancomycin Inj 1,000 MG in IV Premix 1 EACH IV SCH (21:41)
[2016-10-28] VITALS (7 sets, daily range): BP systolic 99–121; BP diastolic 47–67; PULSE 75–87; RESP 11–17; O2SAT 96–100
[2016-10-28] MEDS: Clindamycin Inj 900 MG in IV Premix 1 EACH IV SCH ×3 (00:06→16:06)
[2016-10-28] MEDS: Meropenem Inj 2,000 MG in 0.9% Sodium Chloride-Pha MIX 100 ML IV SCH ×3 (03:00→17:14)
[2016-10-28] MEDS: Phenylephrine 20 mg/250 mL D5W IV SCH ×12 (03:22→22:27)
[2016-10-28 05:08] LABS: BASOPHILS % (AUTO) 0.6 % (0-3); EOSINOPHILS % (AUTO) 10.7 % (0-5); MONOCYTES % (AUTO) 8.5 % (4-12); Mean Corpuscular Hemoglobin 28.3 pg (27.0-35.0); Mean Corpuscular Volume 88.3 fL (81-100); Platelet Count 205 bil/L (150-400)
--- NOTE | 2016-10-28 05:12 | NUR ---
Wound vac, pain, pressors. Vs as noted. Wound vac to perineum with scant drainage in canister. Linens under Pt saturated with brownish serous fluid once at 0000. Linens changed without further drainage. Using SALES CENTER MANAGER Dilaudid effectively. Complains of intermittent scalp discomforts after site manager use. Tele sinus rhythm 70s. Afebrile. Voiding per urinal. Phenylephrine gtt titrated to keep map >65. Currently 0.3mcg/kg/min.
[2016-10-28] MEDS: Vancomycin Dose per Pharmacist XX SCH (08:30)
[2016-10-28] MEDS: Insulin LISPRO 300 Unit/3 mL Inj SUBQ SCH ×4 (08:36→23:01)
[2016-10-28] MEDS: Vancomycin Inj 1,000 MG in IV Premix 1 EACH IV SCH (09:00)
[2016-10-28] MEDS: 0.9% Sodium Chloride 1,000 ML IV SCH ×2 (09:09)
--- NOTE | 2016-10-28 10:18 | PCM.PNSURG ---
Subjective Date of Service: Oct 28, 2016 Date of Service: Oct 28, 2016 Visit Information: Reason for Visit Perineal Gangrene Surgery/Surgery Date Post-Op Day # Date of Admission: Oct 25, 2016 at 22:25 Hospital Day # Subjective: Mr. Holder is states that the wound vac was leaking around his buttocks last night and his bedding had to be changed. Today the area surrounding his perineum is dry, and the vac has about 40 ml of ross fluid in it. Patient's pain is controlled, and he denies any fevers, sweats, chills, nausea or vomiting. Postop General: No Complaints, No Shortness of Breath Gastrointestinal: Good Appetite, Passing Flatus Pain Management: ASSISTANT STORE MANAGER SALES without Basal Objective Objective Wound vac appears functional, with 40ml output overnight. No change in perineal tenderness or appearance. Vital Sign- Last 8 Hours Date Time Temp Pulse Resp B/P Pulse Ox O2 Delivery O2 Flow Rate FiO2 10/28/16 08:10 37.1 82 16 107/54 99 Nasal Cannula 2.00 10/28/16 05:54 16 10/28/16 04:00 36.7 77 13 111/60 100 Nasal Cannula 2.00 Intake and Output- Last 8 Hour 10/28/16 Cumulative From/Thru 07:00 10/25/16 00:59 - 10/28/16 05:55 Intake Total 1560 ml 61717 ml Output Total 240 ml 2290 ml Balance 1320 ml 08940 ml Intake Oral 1180 ml IV Total 1560 ml 13355 ml Output Urine Total 240 ml 1840 ml Estimated Blood Loss 450 ml # Voids 2 # Bowel Movements 0 General: Alert, Oriented X3, Cooperative, No Acute Distress Lungs: Normal Air Movement Abdomen: Benign Result Diagram: 10/28/16 0455 10/28/16 0455 Lab & Micro Results: Wound and blood cultures remain negative. White count normalized. Assessment & Plan Impression 65 year old male post op day 2 for perineal wound debridement, improving -continue to monitor cultures for growth -change wound vac at 72 hours -continue pain management with ASSISTANT STORE MANAGER SALES Problems: VTE Prophylaxis: SCDs Resuscitation Status: CPR: Attempt Resuscitation Cristhian Kuo DO Oct 28, 2016 10:18
[2016-10-28] MEDS: HYDROmorphone PCA 0.2 mg/mL 30 mL Inj IV PRN (10:30)
--- NOTE | 2016-10-28 11:14 | NUR ---
Wound Care Nurse Patient stated that he was uncertain what caused drainage on bedding overnight, complained of intense pruritus, otherwise had no specific complaints related to vac. He denied spilling urine on his bedding or near wound and had no explanation for moisture. Vac operating without leaks and vac drapes appear intact without moisture. Small amount of drainage noted in vac canister. Patient instructed to continue asking for assistance with using urinal so that risk of spill is minimized. Patient stated understanding of information provided.
--- NOTE | 2016-10-28 15:00 | PATH ---
SURGICAL PATHOLOGY Attending Physician:Alber Mims MD CASE STATUS: Signed Out PATIENT NAME: MANNY PRESTON PID: [id number] : 1950 DATE COLLECTED:10/26/2016 00:00 SPECIMEN: Perineum, biopsy CLINICAL HISTORY: PERINEAL SOFT TISSUE INFECTION WITH GAS 1). PERINEAL TISSUE, ? NECROTIZING FASCIITIS FINAL DIAGNOSIS: 1.PERINEAL SOFT TISSUE, DEBRIDEMENT: SKIN AND SOFT TISSUE NECROSIS WITH LARGE AND SMALL VESSEL VASCULITIS AND ACUTE INFLAMMATION ALSO PRESENT. NO MUSCLE IDENTIFIED. NO VIABLE TISSUE IS PRESENT. Negative for malignancy, see comment. ICD10 code L02 NOTE: The differential diagnosis of these findings include necrotizing fasciitis, ischemic/decubitus ulcer, infection, vasculopathic etiology. Clinical correlation recommended. Please correlate with tissue cultures. There is no evidence of malignancy. This case has been reviewed by dermatopathologist Dr. Conde, who agrees with the interpretation. GROSS DESCRIPTION: The specimen is received in one formalin filled container labeled with the patient's name, sublabeled "perineal tissue" and consists of a dark brown friable dome shaped portion of tissue which measures 2.0 x 1.2 x 0.9 CM. The specimen is inked blue. The specimen is sectioned into 5 pieces and entirely submitted in 2 cassettes. 10/26/2016DC ICD-9 CODES: CPT CODES: 1: 59889 Electronically Signed Out Kenan Chase M.D.,[facility] [address], [place] [address] Technical component performed at [facility], [address], [place], [address]
[2016-10-28] MEDS ORDERED: [UNRECOGNIZED DRUG - REMARK] BOTH_EYES PRN (15:05)
--- NOTE | 2016-10-28 16:09 | NUR ---
Social Work Note: Initial Assessment/Multidisciplinary Rounds Data& Assessment: EMR reviewed. Pt was discussed in AM rounds today, per MD pt is still medically complex with wound care needs, wound vac and IV abx. Pt had surgical depravement on Wednesday. Pt remains CCU status. SW met with pt at bedside to discuss discharge planning, SW role explained and discharge planning checklist packet provided. Thomas Holder is a 65 year old male admitted on 10/25/2016 for perineal gangrene. Pt lives in [place] alone and is independent at baseline with all ADL's with no DME at baseline. Pt has been to SNF and had HH in the past but he does not remember which agency or facility. Pt does not have LTC insurance or [facility] benefits but pt states he is a . Pt declined DPOA/AD paperwork. Pt recognizes that he may require SNF to recover from this hospitalization for wound care needs at least. No MD orders at this time. SW to follow up with pt regarding SNF preference if appropriate pending MD orders. Pt denies any needs at this time. SW to continue to follow. Plan: Anticipated discharge to SNF pending MD orders and preferences for wound care and IV abx vs. Home Health depending on pt needs as he medically progresses. Pt denies any needs at this time. SW to continue to follow. AMMON Trevino Addendum: 10/28/16 at 1617 by MAELIA YORK Amended: Links added.
--- NOTE | 2016-10-28 17:41 | PCM.PNMED ---
Subjective Date of Service Oct 28, 2016 Subjective Patient had brown serosanguinous fluid drained from the wound overnight. Pain was controlled with Dilaudid FINAL INSPECTOR MOTORCYLES. Phenylepherine 0.3mcg/kg/hr running for blood pressure control. Patient laying in bed watching tv. Has no complaints at this time. Reports to be making some urine with some incontinence. No bowel movement since yesterday , but has been passing flatus. Serum Cr increased from 1.79 to 1.85 from yesterday. Yesterday's vancomycin trough 20.8. Patient still requiring insulin sliding scale coverage. Exam Vital Signs Vital Sign - Last Date Time Temp Pulse Resp B/P Pulse Ox O2 Delivery O2 Flow Rate FiO2 10/28/16 16:15 36.8 77 11 121/67 96 Room Air 10/28/16 12:30 2.00 Intake and Output 10/27/16 10/27/16 10/28/16 Cumulative From/Thru 15:00 23:00 07:00 10/25/16 00:59 - 10/28/16 05:55 Intake Total 2863 ml 1560 ml 06266 ml Output Total 500 ml 240 ml 2290 ml Balance 2363 ml 1320 ml 17370 ml Intake Oral 1080 ml 1180 ml IV Total 1783 ml 1560 ml 62729 ml Output Urine Total 500 ml 240 ml 1840 ml Estimated Blood Loss 450 ml # Voids 1 2 # Bowel Movements 0 0 Exam Constitutional: awake, alert and oriented x3. No acute distress. conversive and cooperative. Head. Normocephalic and atraumatic. Eyes. Pupils equal round and reactive to light. EOMI. Heart: Regular rate and rhythm. Mild peripheral edema Lungs: Clear to auscultation. No wheezing, rales, or rhonchi. ABD: protuberant, soft, nontender. Bowel sounds present throughout. Musculoskeletal: Moves all four extremities. Appropriate muscle tone. Skin: warm, dry Neuro: CN II-XII intact. no focal deficits. Psych: appropriate mood and affect. IVs and Medications IV Fluids 3L NS in the last 24 hours. Medications Reviewed: Medications were reviewed in detail Medications Phenylepherine 0.3mcg/kg/hr Clindamycin Vancomycin Meropenem Lab and Diagnostics Item Value Date Time Red Blood Count 3.25 mil/mm3 L 10/28/16 0455 Mean Corpuscular Volume 88.3 fL 10/28/16454 Mean Corpuscular Hemoglobin 28.3 pg 10/28/16454 Mean Corpuscular Hemoglobin Concent 32.1 % 10/28/16454 Red Cell Distribution Width 13.6 % 10/28/16454 Neutrophils (%) (Auto) 62.0 % 10/28/16454 Lymphocytes (%) (Auto) 15.9 % 10/28/16454 Monocytes (%) (Auto) 8.5 % 10/28/16454 Eosinophils (%) (Auto) 10.7 % H 10/28/16454 Basophils (%) (Auto) 0.6 % 10/28/16454 Estimat Glomerular Filtration Rate 39 mL/min 10/28/16454 Calcium Level 7.4 mg/dL L 10/28/16454 Total Bilirubin 0.2 mg/dL 10/28/16454 Aspartate Amino Transf (AST/SGOT) 15 U/L 10/28/16454 Alanine Aminotransferase (ALT/SGPT) 14 U/L 10/28/16454 Alkaline Phosphatase 79 U/L 10/28/16454 Total Protein 6.1 g/dL L 10/28/16454 Albumin 2.5 g/dL L 10/28/16454 Vancomycin Level Trough 20.8 mcg/mL *H 10/27/161924 Result Diagram: 10/28/1645410/28/16454 Microbiology MRSA nasal - negative Blood cultures show no growth after 24hours Wound cultures show no organisms. X-Rays, CTs and MRIs Date of Service: 10/25/162104 PROCEDURE: CT ABDOMEN AND PELVIS WITH CONTRAST ([id number]) 1. Subcutaneous gas collection within the left perineum, consistent with infection, with gas-forming organism (necrotizing fasciitis). 2. Cholelithiasis. 3. Small hiatal hernia. 4. Findings discussed with Dr. Mirza on 10.25.16 at 2148 hrs. Dictated by: Monika Bates M.D. on 10/25/2016 at 21:43 Approved by: Monika Bates M.D. on 10/25/2016 at 21:49 Date of Service: 10/25/161928 PROCEDURE: X-RAY CHEST ONE VIEW, PORTABLE ([id number]) IMPRESSION: No acute process. Dictated by: Monika Bates M.D. on 10/25/2016 at 20:08 Approved by: Monika Bates M.D. on 10/25/2016 at 20:08 Additional Diagnostics SPECIMEN: Perineum, biopsy CLINICAL HISTORY: PERINEAL SOFT TISSUE INFECTION WITH GAS 1). PERINEAL TISSUE, ? NECROTIZING FASCIITIS FINAL DIAGNOSIS: 1.PERINEAL SOFT TISSUE, DEBRIDEMENT: SKIN AND SOFT TISSUE NECROSIS WITH LARGE AND SMALL VESSEL VASCULITIS AND ACUTE INFLAMMATION ALSO PRESENT. NO MUSCLE IDENTIFIED. NO VIABLE TISSUE IS PRESENT. Negative for malignancy, see comment. NOTE: The differential diagnosis of these findings include necrotizing fasciitis, ischemic/decubitus ulcer, infection, vasculopathic etiology. Clinical correlation recommended. Please correlate with tissue cultures. There is no evidence of malignancy. This case has been reviewed by dermatopathologist Dr. Conde, who agrees with the interpretation. GROSS DESCRIPTION: The specimen is received in one formalin filled container labeled with the patient's name, sublabeled "perineal tissue" and consists of a dark brown friable dome shaped portion of tissue which measures 2.0 x 1.2 x 0.9 CM. The specimen is inked blue. The specimen is sectioned into 5 pieces and entirely submitted in 2 cassettes. 10/26/2016DC Kenan Chase M.D.,[facility] Assessment & Plan Patient is a 65-year-old male with a history of type 2 diabetes, and past history of perineal abscesses who presents with pain and swelling in his perineal area for one week. Admitted for Delphine's gangrene. Acute sepsis. Present on admission. - Secondary to Delphine's gangrene in the context of uncontrolled type 2 diabetes. Temp 38.6, HR 106, RR 22, WBC 15.3. - NS @ 100 ml/hr - Blood cultures show no growth after 48hrs - Wound cultures show no organisms. - Continue clindamycin (Abx day 3) - Continue Meropenem (Abx day 3) - Vancomycin trough 20.8 yesterday and Cr increased to 1.85 - Stop Vancomycin -Start Linezolid 600mg BID IV 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 - Patient presents with necrotizing fasciitis of the perineal area with gas forming organisms. CT as described above. Based on history, he is of intermediate cardiovascular risk for a high risk surgery. However, given the emergent nature of the surgery, will proceed with surgical debridement. - Zosyn, clindamycin, and vancomycin IV started in ED and post op - will continue with meropenem, clindamycin and vancomycin - Dr. Mims of General Surgery is consulting and will take pt to surgery urgently. We appreciate his expertise. - Diabetic Diet - Dilaudid FINAL INSPECTOR MOTORCYLES, patient will likely return intubated into the CCU post op. Sedation will be continued with fentanyl and propofol Acute kidney injury. Present on admission. - Today's Cr up to 1.7, likely secondary to septic picture. Will continue to monitor after treating wounds and after we stop pressors.Cr 1.58 on admission, secondary to sepsis. - NS @ 100 ml/hr - Avoid nephrotoxic medications - Monitor BMP - Patient fluid up from admission, amount unknown secondary to unreliable measurement from patient's incontinence. Consider diuresis tomorrow Type 2 Diabetes, Uncontrolled, Present on Admission, Chronic - BG 320 on admission. Pt reports BG in 200s for last few days. Possibly acute secondary to infection. - Hold home glipizide and metformin until off of pressors. - Insulin gtt. - Start Lantus 20U while also keeping to sliding scale - A1c 11. - Consider adjusting home meds after patient is off of pressors. - Patient now eating, placed on sliding scale insulin. Hypertension, acute on chronic. - Hypotensive - continue pressors - Continue Phenylepherine 0.3mcg/kg/hr started (10/26). Trial to remove pressors depending on patient's tolerance. - Continue to monitor BP - Hold home lisinopril. Other Medical Conditions GERD - GI prophylaxis with pepcid Depression and Anxiety - Bowel regimen as needed - Antiemetic as needed Patient is admitted under inpatient status with expected length of stay greater than 2 midnights due to severity of presenting symptoms, risk of adverse event, and complexity of treatment plan. GI Prophylaxis: Proton Pump Inhibitor VTE Prophylaxis: SCDs VTE Mechanical Devices: Intermittant Pneumatic CD Resuscitation Status: CPR: Attempt Resuscitation Attending Statement The patient was seen and examined together with Dr. Dorman on 10/28/16 and I have added additional information to the note above. Sj Dorman DO Oct 28, 2016 17:41 Manisha Mosleey DO Oct 31, 2016 13:04
--- NOTE | 2016-10-28 19:02 | NUR ---
BP/O2/BM Cardiac: Pt denies CP, Tele: SR 70s-80s, hypotensive, pressers continue to be titrated to maintain MAP >65, phenylepherine titrated off for trial by end of shift. Resp: Pt denies SOB, O2 titrated down from 2L to 1L, SPO2 96% on 1L NC. Pt does desat for brief periods when napping. GI/: Pt denies n/v/d, Pt had large very hard BM. Pt reports he feels impacted and performed a digital self-disimpaction. Neuro: A&Ox3, TRAYLOR, able to turn in bed, denies ability to get up to BSC currently for reasons of wound pain.
[2016-10-28] MEDS: Linezolid Inj 600 MG in IV Premix 1 EACH IV SCH (22:56)
[2016-10-28] MEDS: Insulin GLARgine 100 Unit/mL Syringe SUBQ SCH (23:02)
[2016-10-29] VITALS (10 sets, daily range): BP systolic 120–139; BP diastolic 47–71; PULSE 72–88; RESP 12–20; O2SAT 93–99
[2016-10-29] MEDS: Clindamycin Inj 900 MG in IV Premix 1 EACH IV SCH ×3 (01:01→17:37)
[2016-10-29] MEDS: Phenylephrine 20 mg/250 mL D5W IV SCH ×12 (02:16→21:21)
[2016-10-29] MEDS: Meropenem Inj 2,000 MG in 0.9% Sodium Chloride-Pha MIX 100 ML IV SCH ×3 (03:30→17:38)
--- NOTE | 2016-10-29 03:36 | NUR ---
Wound vac, itching, VS as noted. Wound vac in place with scant brownish drainage. Denies pain or discomforts. Using Dilaudid VEHICLE TRIMMER just once this shift. Complains of itching across upper back. Benadryl PO given x1 with improvement. Voiding per urinal. Remains off Phenylephrine.gtt with MAP >65.
[2016-10-29] MEDS: 0.9% Sodium Chloride 1,000 ML IV SCH ×2 (07:17→17:38)
--- NOTE | 2016-10-29 08:27 | PCM.PNSURG ---
Subjective Date of Service: Oct 29, 2016 Date of Service: Oct 29, 2016 Visit Information: Reason for Visit Perineal Gangrene Perineal wound debridement Post-Op Day # 3 Date of Admission: Oct 25, 2016 at 22:25 Subjective: Patient states that his pain is controlled, he is eating and drinking, and denies fevers, sweats, or chills. He has no complaints. Vancomycin has been discontinued, and he is currently on nasal lead and meropenem. Postop General: No Complaints Gastrointestinal: Good Appetite, Tolerating Oral Feedings, No N/V, Passing Flatus Pain Management: SENIOR SAFETY MANAGEMENT CONSULTANT without Basal Postop Activity: Other Objective Vital Sign- Last 8 Hours Date Time Temp Pulse Resp B/P Pulse Ox O2 Delivery O2 Flow Rate FiO2 10/29/16 05:40 12 99 10/29/16 04:00 Supplement Oxygen Intake and Output- Last 8 Hour 10/29/16 Cumulative From/Thru 07:00 10/25/16 00:59 - 10/29/16 05:38 Intake Total 1395 ml 78757 ml Output Total 800 ml 3090 ml Balance 595 ml 25937 ml Intake Oral 1580 ml IV Total 1395 ml 43512 ml Output Urine Total 800 ml 2640 ml Estimated Blood Loss 450 ml # Voids 2 # Bowel Movements 0 General: Alert, Oriented X3, Cooperative Neck: Full Range of Motion Lungs: Normal Air Movement Heart: Exam Unremarkable Abdomen: Benign, Soft SURGICAL WOUND : Wound General Appearence: Wound Vac (surrounding area dry, no change in drainage color, approx 45 cc total) Result Diagram: 10/28/16 0455 10/29/16 0455 Lab & Micro Results: Cultures remain negative Assessment & Plan Impression Mr. Holder is a 65-year-old male day 3 status post debridement of perineal wound, with subsequent application of wound VAC. -Continue to monitor wound VAC output, and change dressing tomorrow. -Continue to control pain via SENIOR SAFETY MANAGEMENT CONSULTANT -Continue to monitor urine output and kidney function recovery after discontinuation of vancomycin Problems: VTE Prophylaxis: SCDs Resuscitation Status: CPR: Attempt Resuscitation Cristhian Kuo DO Oct 29, 2016 08:27
[2016-10-29] MEDS: Linezolid Inj 600 MG in IV Premix 1 EACH IV SCH ×2 (08:30→21:12)
[2016-10-29] MEDS: Insulin LISPRO 300 Unit/3 mL Inj SUBQ SCH ×4 (09:37→23:25)
--- NOTE | 2016-10-29 10:51 | NUR ---
Inpatient Wound Nurse Patient stated that he is tolerating vac and drapes, "I can deal with it," and agreeable to vac change tomorrow, as noted on Dr. Kuo's note earlier today. Vac drapes patent, no leaking noted on vac suction screen, and minimal sanguinous drainage noted in canister.
--- NOTE | 2016-10-29 11:38 | NUR ---
NUTRITION FOLLOW-UP: Assess: 65 YO M admitted to CCU for perineal gangrene s/p OR for surgical debridement. Currently has Wound Vac in place. He is on a DM diet and tolerating well. PMHX: Type 2 diabetes, HTN, depression, anxiety, toe amputation. DIET: CC, PO 100% LABS: Bun 41, Admitting Counselor 1.66, Ca 7.2, Alb 2.5, A1C 11 MEDICATIONS: Insulin. GI: BMx1 10/29 SKIN: Perineal gangrene s/p surgical debridement. Wound care following ANTHROPOMETRICS: Wt: 175 kg, BMI 45.7 kg/m2, Admit wt: 163.5 kg. Adj. BW: 114.7 kg, IBW 95.4kg ESTIMATED NEEDS: Calories: 8201-1291 kcal/day (25-30 kcal/kg Adj. BW) Protein: 135-165 g/day (1.2-1.5 g/kg Adj. BW) NUTRITION DIAGNOSIS: 1) Inadequate oral intake related to decreased ability to consume sufficient energy as evidenced by NPO status.--RESOLVED 2) Altered nutrition related lab values related to endocrine dysfunction as evidence byA1C of 11 INTERVENTION: 1) Inpt DM diet education provided. Please see inpt DM scree & assment under care activity for more information of education. MONITOR/EVALUATE: PO, wt, GI, labs, wounds, GI/nutrition status. Follow per moderate nutrition risk guidelines.
--- NOTE | 2016-10-29 17:05 | PCM.PNMED ---
Subjective Date of Service Oct 29, 2016 Subjective Nursing reports patient denies any pain or discomfort. He has only used his CUT OUT MARKER once during the night. No acute events overnight. Remains off of pressors. Patient laying in bed comfortably, denies any CP, SOB, ABD pain, N/V/D, Patient has not had a bowel movement in two days, but is passing flatus. ROS negative unless otherwise noted above. Exam Vital Signs Vital Sign - Last Date Time Temp Pulse Resp B/P Pulse Ox O2 Delivery O2 Flow Rate FiO2 10/29/16 16:24 37.1 77 16 126/65 97 Nasal Cannula 2.00 Intake and Output 10/28/16 10/28/16 10/29/16 Cumulative From/Thru 15:00 23:00 07:00 10/25/16 00:59 - 10/29/16 05:38 Intake Total 512 ml 1395 ml 64708 ml Output Total 800 ml 3090 ml Balance 512 ml 595 ml 79397 ml Intake Oral 400 ml 1580 ml IV Total 112 ml 1395 ml 58885 ml Output Urine Total 800 ml 2640 ml Estimated Blood Loss 450 ml # Voids 2 # Bowel Movements 0 Exam Constitutional: Awake, alert and in no acute distress. Head: normocephalic and atraumatic Eyes: Pupils equal round and reactive to light. EOMI. No scleral icterus Heart: Regular rate and rhythm. Mild non pitting peripheral edema. Lungs: clear to auscultation. No wheeze rales, or rhonchi ABD: protuberant, soft, nontender, bowel sounds present throughout. Musculoskeletal: Moves all four extremities appropriately. Skin: Warm, Dry. Wound is clean, dry, no signs of erythema or edema Neuro: CN II-XII intact. No focal deficits. Psych: Appropriate mood and affect. IVs and Medications IV Fluids 1L NS in the last 24hours. Medications Reviewed: Medications were reviewed in detail Medications Clindamycin Meropenem Linezolid. Lab and Diagnostics Item Value Date Time Red Blood Count 3.25 mil/mm3 L 10/28/16454 Estimat Glomerular Filtration Rate 44 mL/min 10/29/16 045 Calcium Level 7.2 mg/dL L 10/29/16454 Total Bilirubin 0.2 mg/dL 10/29/16454 Aspartate Amino Transf (AST/SGOT) 12 U/L 10/29/16454 Alanine Aminotransferase (ALT/SGPT) 11 U/L 10/29/16454 Alkaline Phosphatase 73 U/L 10/29/16454 Total Protein 5.2 g/dL L 10/29/16454 Albumin 2.5 g/dL L 10/29/16454 Result Diagram: 10/28/1645410/29/16454 Microbiology MRSA nasal - negative Blood cultures show no growth after 24hours Wound cultures show no organisms. X-Rays, CTs and MRIs Date of Service: 10/25/162104 PROCEDURE: CT ABDOMEN AND PELVIS WITH CONTRAST ([id number]) 1. Subcutaneous gas collection within the left perineum, consistent with infection, with gas-forming organism (necrotizing fasciitis). 2. Cholelithiasis. 3. Small hiatal hernia. 4. Findings discussed with Dr. Mizra on 10.25.16 at 2148 hrs. Dictated by: Monika Bates M.D. on 10/25/2016 at 21:43 Approved by: Monika Bates M.D. on 10/25/2016 at 21:49 Date of Service: 10/25/161928 PROCEDURE: X-RAY CHEST ONE VIEW, PORTABLE ([id number]) IMPRESSION: No acute process. Dictated by: Monika Bates M.D. on 10/25/2016 at 20:08 Approved by: Monika Bates M.D. on 10/25/2016 at 20:08 Additional Diagnostics SPECIMEN: Perineum, biopsy CLINICAL HISTORY: PERINEAL SOFT TISSUE INFECTION WITH GAS 1). PERINEAL TISSUE, ? NECROTIZING FASCIITIS FINAL DIAGNOSIS: 1.PERINEAL SOFT TISSUE, DEBRIDEMENT: SKIN AND SOFT TISSUE NECROSIS WITH LARGE AND SMALL VESSEL VASCULITIS AND ACUTE INFLAMMATION ALSO PRESENT. NO MUSCLE IDENTIFIED. NO VIABLE TISSUE IS PRESENT. Negative for malignancy, see comment. NOTE: The differential diagnosis of these findings include necrotizing fasciitis, ischemic/decubitus ulcer, infection, vasculopathic etiology. Clinical correlation recommended. Please correlate with tissue cultures. There is no evidence of malignancy. This case has been reviewed by dermatopathologist Dr. Conde, who agrees with the interpretation. GROSS DESCRIPTION: The specimen is received in one formalin filled container labeled with the patient's name, sublabeled "perineal tissue" and consists of a dark brown friable dome shaped portion of tissue which measures 2.0 x 1.2 x 0.9 CM. The specimen is inked blue. The specimen is sectioned into 5 pieces and entirely submitted in 2 cassettes. 10/26/2016TN Kenan Chase M.D.,[facility] Assessment & Plan Patient is a 65-year-old male with a history of type 2 diabetes, and past history of perineal abscesses who presents with pain and swelling in his perineal area for one week. Admitted for Delphine's gangrene. Patient is doing well and will be downgraded to [facility] today (10/29). Acute sepsis. Present on admission. Ongoing - Secondary to Delphine's gangrene in the context of uncontrolled type 2 diabetes. - NS @ 100 ml/hr - Blood cultures show no growth after 48hrs - Wound cultures show no organisms. Gram stain shows no organisms. - Continue clindamycin (Abx day 4) - Continue Meropenem (Abx day 4) -Continue Linezolid (Abx day 2) - Hold Phenylephrine 0.3mcg/kg/hr started (10/29). Will keep order in place until patient shows stability without Phenylephrine - Patient no longer on pressors, will downgrade to [facility]. 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 Ongoing - Patient presents with necrotizing fasciitis of the perineal area with gas forming organisms. CT as described above. - Continue clindamycin, Meropenem, Linezolid as above - Dr. Mims of General Surgery is following. - Diabetic Diet - Dilaudid CUT OUT MARKER PRN pain. Acute kidney injury. Present on admission. - Kidney function is improving. Latest Cr 1.66 down from 1.85. - NS @ 100 ml/hr - Avoid nephrotoxic medications - Monitor BMP - Patient fluid up from admission, amount unknown secondary to unreliable measurement from patient's incontinence. Consider diuresis tomorrow Type 2 Diabetes, Uncontrolled, Present on Admission, Chronic - BG 320 on admission. Pt reports BG in 200s for last few days. Possibly acute secondary to infection. - Hold home glipizide and metformin. Will hold until patient remains stable for 24 hours after removal of pressors and then reassess. - Insulin gtt. - Start Lantus 20U while also keeping to sliding scale - A1c 11. - Consider adjusting home meds after patient is off of pressors. Hypertension, acute on chronic. - Patient's blood pressure is responding to treatment of infection and no longer requires pressors. - Continue to monitor BP - Hold home lisinopril. Other Medical Conditions GERD - GI prophylaxis with pepcid Depression and Anxiety - Bowel regimen as needed - Antiemetic as needed Disposition: Patient is admitted under inpatient status with recent requirement of pressors, IV antibiotic regimen and strict glucose control. Patient downgraded from CCU to PCC; however, due to the complexity of the case, and need for IV antibiotics. Patient will require a penitentiary treatment with antibiotics, the length at which inpatient vs. outpatient is yet to be determined. GI Prophylaxis: Proton Pump Inhibitor VTE Prophylaxis: SCDs VTE Mechanical Devices: Intermittant Pneumatic CD Resuscitation Status: CPR: Attempt Resuscitation Attending Statement The patient was seen and examined together with Dr. Dorman on 10/29/16 and I have added additional information to the note above. Sj Dorman DO Oct 29, 2016 17:05 Manisha Moseley DO Oct 30, 2016 13:10
--- NOTE | 2016-10-29 17:58 | NUR ---
Transfer The pt was downgraded to [facility] bed 2021. Report received from Amira Stroud RN. The pt continues on a dilaudid HYDROLOGICAL TECHNICAL OFFICER with IV ABX. A wound vac is on his balbina-anal wound and is patent. The pt reports no pain with the HYDROLOGICAL TECHNICAL OFFICER, is A&Ox3 with VSS.
[2016-10-29] MEDS: Insulin GLARgine 100 Unit/mL Syringe SUBQ SCH (23:25)
[2016-10-30] VITALS (7 sets, daily range): BP systolic 131–168; BP diastolic 64–82; PULSE 78–88; RESP 15–20; O2SAT 94–98
[2016-10-30] MEDS: Phenylephrine 20 mg/250 mL D5W IV SCH ×12 (01:10→17:20)
[2016-10-30] MEDS: Clindamycin Inj 900 MG in IV Premix 1 EACH IV SCH ×3 (01:30→15:34)
[2016-10-30] MEDS: Meropenem Inj 2,000 MG in 0.9% Sodium Chloride-Pha MIX 100 ML IV SCH ×3 (02:12→17:20)
[2016-10-30] MEDS: 0.9% Sodium Chloride 1,000 ML IV SCH ×3 (02:12→23:17)
--- NOTE | 2016-10-30 06:03 | NUR ---
Pain/Wound Vac Patient denies pain overnight, chatty and interactive with staff. Wound vac in place on perineal wound. Tele: sinus rhythm.
[2016-10-30] MEDS: Ondansetron 2 mg/mL 2 mL Inj IVPUSH PRN (09:25)
[2016-10-30] MEDS: Insulin LISPRO 300 Unit/3 mL Inj SUBQ SCH ×4 (09:26→21:23)
--- NOTE | 2016-10-30 09:37 | PCM.PNSURG ---
Subjective Date of Service: Oct 30, 2016 Visit Information: Reason for Visit Perineal Gangrene Surgery/Surgery Date Post-Op Day # Date of Admission: Oct 25, 2016 at 22:25 Hospital Day # Subjective: Patient continues to have some pain in the perineal area, but denies fevers, sweats, chills. Postop General: No Shortness of Breath Gastrointestinal: Good Appetite, Passing Flatus Pain Management: RELIEF MAP MODELER without Basal Objective Objective Wound vac dressing is dry, and surrounding tissue is non-erythematous. Vital Sign- Last 8 Hours Date Time Temp Pulse Resp B/P Pulse Ox O2 Delivery O2 Flow Rate FiO2 10/30/16 09:21 36.9 82 16 131/77 94 Nasal Cannula 1.00 10/30/16 03:28 37.1 82 20 133/80 96 Nasal Cannula 1.00 10/30/16 01:31 16 97 Intake and Output- Last 8 Hour 10/30/16 Cumulative From/Thru 07:00 10/25/16 00:59 - 10/30/16 06:45 Intake Total 1828 ml 39394 ml Output Total 1600 ml 5340 ml Balance 228 ml 07292 ml Intake Oral 400 ml 2700 ml IV Total 1428 ml 93521 ml Output Urine Total 1600 ml 4890 ml Estimated Blood Loss 450 ml # Voids 3 5 # Bowel Movements 0 General: Alert, Oriented X3, Cooperative, No Acute Distress Neck: Full Range of Motion Abdomen: Soft Neuro: Grossly Neurologically Intact Result Diagram: 10/28/16 0455 10/29/16 0455 Assessment & Plan Impression 65 year old male s/p sharp debridement of perineal wound on 26 october. -change wound vac today -continue pain management Problems: VTE Prophylaxis: SCDs Resuscitation Status: CPR: Attempt Resuscitation Cristhian Kuo DO Oct 30, 2016 09:37
[2016-10-30 09:45] LABS: Mean Corpuscular Volume 87.5 fL (81-100)
[2016-10-30] MEDS: Linezolid Inj 600 MG in IV Premix 1 EACH IV SCH ×2 (10:22→21:14)
--- NOTE | 2016-10-30 12:16 | NUR ---
Wound Note Patient seen at bedside for perianal wound dressing change. NPWT seal was maintained from last dressing placement on 10/27/16, 150 cc's serous drainage noted in canister. After infusing 4% topical lidocaine into NPWT dressing it was removed, noted wound bed to be granulating and without any necrotic tissue to speak of in the wound bed, dimensions are unchanged from last assessment. NPWT dressing was placed using 2 pieces of black foam and 200 mmhg continuous therapy, a good seal was attained and patient tolerated treatment well. Next dressing change due 11/02/16. Dr Mims undated on patients progress. Will need SNF on discharge for complex wound care utilizing NPWT.
--- NOTE | 2016-10-30 16:55 | NUR ---
HTN/Mobility Pt became hypertensive, phenylephrine discontinued. MD aware. Blood pressure stable. Afebrile. Alert and oriented x3; VSS; eating and drinking well. Wound vac changed today by wound care. The pt was able to ambulate in the room with PT. Pain still controlled by dilaudid [employer] S[employer]VERWARE SALESPERSON pump.
--- NOTE | 2016-10-30 18:11 | PCM.PNMED ---
Subjective Date of Service Oct 30, 2016 Subjective Nursing reports no acute events overnight. Patient seen and examined laying in bed. Patient c/o headache with nausea. Denies CP, SOB, ABD pain, vomiting, or diarrhea. @12:36 page received that the patient was hypertensive. It was then discovered that patient was inappropriately placed back on Phenylephrine by nighttime nursing staff. Patient was then immediately removed from medication and monitored. Exam Vital Signs Vital Sign - Last Date Time Temp Pulse Resp B/P Pulse Ox O2 Delivery O2 Flow Rate FiO2 10/30/16 13:04 36.9 88 19 168/82 97 Nasal Cannula 2.00 Intake and Output 10/29/16 10/29/16 10/30/16 Cumulative From/Thru 15:00 23:00 07:00 10/25/16 00:59 - 10/30/16 06:45 Intake Total 2957 ml 1828 ml 69521 ml Output Total 650 ml 1600 ml 5340 ml Balance 2307 ml 228 ml 96068 ml Intake Oral 720 ml 400 ml 2700 ml IV Total 2237 ml 1428 ml 66332 ml Output Urine Total 650 ml 1600 ml 4890 ml Estimated Blood Loss 450 ml # Voids 3 5 # Bowel Movements 0 Exam Constitutional: Awake, Alert, and in no acute distress Eyes: EOMI, no scleral icterus Heart: Regular Rate and Rhythm, radial pulses, 1+ edema peripheral edema. Lungs: clear to auscultation. no wheeze, rales, or rhonchi. ABD: soft, nontender, bowel sounds present throughout Musculoskeletal: Moves all four extremities appropriately Skin: warm, dry, Recently resected perianal abscess that shows no sign of worsening infection. Neuro: CN II-XII intact. no focal deficits. Psych: appropriate mood and affect. IVs and Medications IV Fluids 1L NS given in the past 24 hours. Medications Reviewed: Medications were reviewed in detail Medications High Risk Medications Meropenem Clindamycin Linezolid Lab and Diagnostics Item Value Date Time Red Blood Count 3.11 mil/mm3 L 10/30/16929 Mean Corpuscular Volume 87.5 fL 10/30/16929 Mean Corpuscular Hemoglobin 28.0 pg 10/30/16929 Mean Corpuscular Hemoglobin Concent 32.0 % 10/30/16929 Red Cell Distribution Width 13.3 % 10/30/16929 Lactic Acid Level 0.6 mmol/L 10/30/16 1335 Estimat Glomerular Filtration Rate 65 mL/min 10/30/16 1335 Calcium Level 7.9 mg/dL L 10/30/16 1335 Total Bilirubin 0.2 mg/dL 10/30/16 1335 Aspartate Amino Transf (AST/SGOT) 13 U/L 10/30/16 1335 Alanine Aminotransferase (ALT/SGPT) 12 U/L 10/30/16 1335 Alkaline Phosphatase 76 U/L 10/30/16 1335 Total Creatine Kinase 35 U/L 10/30/16 1335 Albumin 2.7 g/dL L 10/30/16 1335 Total Protein 5.9 g/dL L 10/30/16 1335 Result Diagram: 10/30/16 0930 10/30/16 1335 Microbiology MRSA nasal - negative Blood cultures show no growth after 24hours Wound cultures show no organisms. X-Rays, CTs and MRIs Date of Service: 10/25/16 210 PROCEDURE: CT ABDOMEN AND PELVIS WITH CONTRAST ([id number]) 1. Subcutaneous gas collection within the left perineum, consistent with infection, with gas-forming organism (necrotizing fasciitis). 2. Cholelithiasis. 3. Small hiatal hernia. 4. Findings discussed with Dr. Mirza on 10.25.16 at 2148 hrs. Dictated by: Monika Bates M.D. on 10/25/2016 at 21:43 Approved by: Monika Bates M.D. on 10/25/2016 at 21:49 Date of Service: 10/25/16 1929 PROCEDURE: X-RAY CHEST ONE VIEW, PORTABLE ([id number]) IMPRESSION: No acute process. Dictated by: Monika Bates M.D. on 10/25/2016 at 20:08 Approved by: Monika Bates M.D. on 10/25/2016 at 20:08 Additional Diagnostics SPECIMEN: Perineum, biopsy CLINICAL HISTORY: PERINEAL SOFT TISSUE INFECTION WITH GAS 1). PERINEAL TISSUE, ? NECROTIZING FASCIITIS FINAL DIAGNOSIS: 1.PERINEAL SOFT TISSUE, DEBRIDEMENT: SKIN AND SOFT TISSUE NECROSIS WITH LARGE AND SMALL VESSEL VASCULITIS AND ACUTE INFLAMMATION ALSO PRESENT. NO MUSCLE IDENTIFIED. NO VIABLE TISSUE IS PRESENT. Negative for malignancy, see comment. NOTE: The differential diagnosis of these findings include necrotizing fasciitis, ischemic/decubitus ulcer, infection, vasculopathic etiology. Clinical correlation recommended. Please correlate with tissue cultures. There is no evidence of malignancy. This case has been reviewed by dermatopathologist Dr. Conde, who agrees with the interpretation. GROSS DESCRIPTION: The specimen is received in one formalin filled container labeled with the patient's name, sublabeled "perineal tissue" and consists of a dark brown friable dome shaped portion of tissue which measures 2.0 x 1.2 x 0.9 CM. The specimen is inked blue. The specimen is sectioned into 5 pieces and entirely submitted in 2 cassettes. 10/26/2016LA Kenan Chase M.D.,[place] [facility] Assessment & Plan Patient is a 65-year-old male with a history of type 2 diabetes, and past history of perineal abscesses who presents with pain and swelling in his perineal area for one week. Admitted for Delphine's gangrene. 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 (Ongoing) - Patient presents with necrotizing fasciitis of the perineal area with gas forming organisms. CT as described above. Based on history, he is of intermediate cardiovascular risk for a high risk surgery. However, given the emergent nature of the surgery, surgical debridement was performed. - Continue with meropenem, clindamycin and Linezolid - Dr. Mims of General Surgery was consulted and took the patient to surgery urgently (10/26/16). - Diabetic Diet - Dilaudid LEGAL ADVISER Acute sepsis. Present on admission. (Resolved) - Secondary to Delphine's gangrene in the context of uncontrolled type 2 diabetes. - NS @ 100 ml/hr - Blood cultures show no growth after 24hrs - Wound cultures show no organisms. - Zosyn, clindamycin, and Linezolid IV Acute kidney injury. Present on admission. (Resolved) - Most recent Cr 1.19 - NS @ 100 ml/hr - Avoid nephrotoxic medications - Monitor BMP Type 2 Diabetes, Uncontrolled, Present on Admission, Chronic - BG 320 on admission. Pt reports BG in 200s for last few days. - Hold home glipizide and metformin until off of pressors. - Insulin gtt discontinued -Lantus 30U HS - A1c 11. - Patient now eating, placed on sliding scale insulin along with Lantus 30U. Hypertension, acute on chronic. -Start home dose Lisinopril - Continue to monitor BP Other Medical Conditions GERD - GI prophylaxis with pepcid Depression and Anxiety - Bowel regimen as needed - Antiemetic as needed - PT as tolerated Disposition: Patient is progressing daily and is now off pressors. Patient is still requiring IV antibiotics. Patient will require a terminal gauger treatment with antibiotics, the length at which inpatient vs. outpatient is yet to be determined. We will consult with infectious disease once he is available for further recommendations of antibiotic coverage. GI Prophylaxis: Proton Pump Inhibitor VTE Prophylaxis: SCDs VTE Mechanical Devices: Intermittant Pneumatic CD Resuscitation Status: CPR: Attempt Resuscitation Attending Statement The patient was seen and examined together with Dr. Dorman on 10/30/16 and I have added additional information to the note above. Sj Dorman DO Oct 30, 2016 18:11 Manisha Moseley DO Oct 31, 2016 15:04
[2016-10-30] MEDS: Insulin GLARgine 100 Unit/mL Syringe SUBQ SCH (21:23)
[2016-10-31] VITALS (11 sets, daily range): BP systolic 131–177; BP diastolic 59–77; PULSE 72–82; RESP 11–21; O2SAT 95–98
[2016-10-31] MEDS: Phenylephrine 20 mg/250 mL D5W IV SCH ×2 (00:04)
--- NOTE | 2016-10-31 00:24 | NUR ---
Constipation/Pain Pt C/O constipation, gave miralax and Senna, tried bed hoskins , no BM, A&O x3 using call light and LETTER CARRIER appropriately. NS @ tko for ABX, fluids DC'd taking PO adequately . Wound Vac working .
[2016-10-31] MEDS: Clindamycin Inj 900 MG in IV Premix 1 EACH IV SCH ×3 (01:11→17:04)
[2016-10-31] MEDS: Meropenem Inj 2,000 MG in 0.9% Sodium Chloride-Pha MIX 100 ML IV SCH ×3 (02:04→17:52)
[2016-10-31] MEDS: Alum-Mag Hydrox-Simeth 30 mL Suspension PO PRN ×3 (05:48→22:09)
[2016-10-31] MEDS: Insulin LISPRO 300 Unit/3 mL Inj SUBQ SCH ×4 (08:00→20:56)
[2016-10-31] MEDS: Linezolid Inj 600 MG in IV Premix 1 EACH IV SCH ×2 (08:58→19:51)
[2016-10-31] MEDS: 0.9% Sodium Chloride 1,000 ML IV SCH ×2 (08:59→19:17)
[2016-10-31] MEDS ORDERED: Labetalol 5 mg/mL 4 mL Inj IVPUSH ONE (14:10)
--- NOTE | 2016-10-31 14:24 | PCM.PNMED ---
Subjective Date of Service Oct 31, 2016 Subjective Nurse reports patient c/o constipation. But pain relatively under control. Patient hesitant to use PACE ANALYST. No acute events overnight. Patient seen and examined. C/o chest pressure that he states has come and gone since yesterday. He says this is pain similar to what he feels some mornings at home, and that it resolved with a warm compress on the chest. Denies any SOB , ABD pain, N/V, or headache. States that he hasn't had a bowel movement in a few days, but is still passing flatus. ROS reviewed and negative unless otherwise stated above. Exam Vital Signs Vital Sign - Last Date Time Temp Pulse Resp B/P Pulse Ox O2 Delivery O2 Flow Rate FiO2 10/31/16 09:22 Supplement Oxygen 10/31/16 08:56 37.0 72 12 163/70 96 1.00 Intake and Output 10/30/16 10/30/16 10/31/16 Cumulative From/Thru 15:00 23:00 07:00 10/25/16 00:59 - 10/31/16 06:51 Intake Total 640 ml 1565 ml 30689 ml Output Total 2720 ml 1650 ml 9710 ml Balance -2080 ml -85 ml 81240 ml Intake Oral 640 ml 300 ml 3640 ml IV Total 1265 ml 92246 ml Output Urine Total 2720 ml 1650 ml 9260 ml Estimated Blood Loss 450 ml # Voids 5 # Bowel Movements 0 Exam Constitutional: Awake, Alert and Oriented x4, in no acute distress Head: normocephalic and atraumatic Eyes: no scleral icterus, EOMI Heart: Regular Rate and rhythm. no murmurs. 2/4 radial pulses. 2/4 pedal pulses. 1+ peripheral edema bilaterally. Lungs: Clear to auscultation bilaterally. no wheeze, rales, or rhonchi. ABD: mild tenderness diffusely. Soft, protuberant. Bowel Sounds present throughout. Musculoskeletal: moves all four extremities appropriately Skin: warm, dry, no rashes, chronic venoustasis on bilateral lower extremities, wound vac in place Neuro: CN II-XII intact. no focal deficits. Psych: Appropriate mood and affect. IVs and Medications Medications Reviewed: Medications were reviewed in detail Medications High Risk IV Medications: Dilaudid PACE ANALYST Clindamycin Linezolid Meropenem Lab and Diagnostics Item Value Date Time Red Blood Count 3.07 mil/mm3 L 10/31/16 040 Mean Corpuscular Volume 87.0 fL 10/31/16 040 Mean Corpuscular Hemoglobin 28.0 pg 10/31/16399 Mean Corpuscular Hemoglobin Concent 32.2 % 10/31/16399 Red Cell Distribution Width 13.2 % 10/31/16 040 Platelet Count 219 pratibha/L 10/31/16 0400 Estimat Glomerular Filtration Rate 67 mL/min 10/31/16 0400 Calcium Level 8.1 mg/dL L 10/31/16 040 Total Bilirubin 0.2 mg/dL 10/31/16 0400 Aspartate Amino Transf (AST/SGOT) 12 U/L 10/31/16 0400 Alanine Aminotransferase (ALT/SGPT) 11 U/L 10/31/16 0400 Alkaline Phosphatase 68 U/L 10/31/16 0400 Troponin T 0.010 ug/L 10/31/16 040 Total Protein 5.5 g/dL L 10/31/16 0400 Albumin 2.7 g/dL L 10/31/16 040 Lactic Acid Level 0.6 mmol/L 10/30/16 1335 Result Diagram: 10/31/16 04010/31/16 040 Microbiology MRSA nasal - negative Blood cultures show no growth after 24hours Wound cultures show no organisms. X-Rays, CTs and MRIs Date of Service: 10/25/162104 PROCEDURE: CT ABDOMEN AND PELVIS WITH CONTRAST ([id number]) 1. Subcutaneous gas collection within the left perineum, consistent with infection, with gas-forming organism (necrotizing fasciitis). 2. Cholelithiasis. 3. Small hiatal hernia. 4. Findings discussed with Dr. Mirza on 10.25.16 at 2148 hrs. Dictated by: Monika Bates M.D. on 10/25/2016 at 21:43 Approved by: Monika Bates M.D. on 10/25/2016 at 21:49 Date of Service: 10/25/169 PROCEDURE: X-RAY CHEST ONE VIEW, PORTABLE ([id number]) IMPRESSION: No acute process. Dictated by: Monika Bates M.D. on 10/25/2016 at 20:08 Approved by: Monika Bates M.D. on 10/25/2016 at 20:08 Additional Diagnostics SPECIMEN: Perineum, biopsy CLINICAL HISTORY: PERINEAL SOFT TISSUE INFECTION WITH GAS 1). PERINEAL TISSUE, ? NECROTIZING FASCIITIS FINAL DIAGNOSIS: 1.PERINEAL SOFT TISSUE, DEBRIDEMENT: SKIN AND SOFT TISSUE NECROSIS WITH LARGE AND SMALL VESSEL VASCULITIS AND ACUTE INFLAMMATION ALSO PRESENT. NO MUSCLE IDENTIFIED. NO VIABLE TISSUE IS PRESENT. Negative for malignancy, see comment. NOTE: The differential diagnosis of these findings include necrotizing fasciitis, ischemic/decubitus ulcer, infection, vasculopathic etiology. Clinical correlation recommended. Please correlate with tissue cultures. There is no evidence of malignancy. This case has been reviewed by dermatopathologist Dr. Conde, who agrees with the interpretation. GROSS DESCRIPTION: The specimen is received in one formalin filled container labeled with the patient's name, sublabeled "perineal tissue" and consists of a dark brown friable dome shaped portion of tissue which measures 2.0 x 1.2 x 0.9 CM. The specimen is inked blue. The specimen is sectioned into 5 pieces and entirely submitted in 2 cassettes. 10/26/2016DC Kenan Chase M.D.,[place] [facility] Assessment & Plan Patient is a 65-year-old male with a history of type 2 diabetes, and past history of perineal abscesses who presents with pain and swelling in his perineal area for one week. Admitted for Delphine's gangrene. 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 (Ongoing) - Patient presents with necrotizing fasciitis of the perineal area with gas forming organisms. CT as described above. Based on history, he is of intermediate cardiovascular risk for a high risk surgery. However, given the emergent nature of the surgery, will proceed with surgical debridement. - Continue with meropenem, clindamycin and Linezolid - Dr. Mims of General Surgery was consulted and took the patient to surgery urgently (10/26/16) and a second washout on 10/27/16. - Diabetic Diet - Dilaudid PACE ANALYST Angina. Not Present on Admission. (Ongoing) - Troponin - not elevated - EKG reviewed. Normal sinus rhythm -This is likely secondary effects to medications. Will monitor. Acute sepsis. Present on admission. (Resolved) - Secondary to Delphine's gangrene in the context of uncontrolled type 2 diabetes. - NS @ 100 ml/hr - Blood cultures show no growth after 24hrs - Wound cultures show no organisms. - Zosyn, clindamycin, and Linezolid IV Acute kidney injury. Present on admission. (Resolved) - Most recent Cr 1.19 - NS @ 100 ml/hr - Avoid nephrotoxic medications - Monitor BMP Type 2 Diabetes, Uncontrolled, Present on Admission, Chronic - BG 320 on admission. Pt reports BG in 200s for last few days. - Hold home glipizide and metformin until off of pressors. - Insulin gtt. -Lantus 30U HS - A1c 11. - Patient now eating, placed on sliding scale insulin along with Lantus 30U. Hypertension, acute on chronic. -SBP in the 160s-170s today. Will increase Lisinopril to 30mg starting (10/31). - Patient received Labetalol 200mg PO at 1800 10/30, and Labetalol 20mg IV 10/31 - Continue to monitor BP Other Medical Conditions GERD - GI prophylaxis with pepcid Depression and Anxiety - Bowel regimen as needed - Antiemetic as needed - PT as tolerated Disposition: Patient is progressing daily and is now off pressors. Patient is still requiring IV antibiotics. Patient will require a halfway treatment with antibiotics, the length at which inpatient vs. outpatient is yet to be determined will discuss with infectious disease 11/02/16. GI Prophylaxis: Proton Pump Inhibitor VTE Prophylaxis: SCDs VTE Mechanical Devices: Intermittant Pneumatic CD Resuscitation Status: CPR: Attempt Resuscitation Attending Statement The patient was seen and examined together with Dr. Dorman on 10/31/16 and I have added additional information to the note above. Sj Dorman DO Oct 31, 2016 14:24 Manisha Moseley DO Nov 01, 2016 13:03
[2016-10-31] MEDS: Lactulose 20 Gm/30 mL 30 mL Syrup PO SCH ×2 (17:35→21:16)
--- NOTE | 2016-10-31 18:45 | NUR ---
Pain/constipation Pt reporting perineal pain but presently reports that it is tolerable. However he states he will not be able to sit on a commode or bedpan due to the location of his wound. He has not used his WARPMAN much this shift. He c/o constipation but declined lactulose at this time and stated that he wanted to try prune juice first. Will continue to monitor.
[2016-10-31] MEDS: HYDROmorphone PCA 0.2 mg/mL 30 mL Inj IV PRN (19:50)
[2016-10-31] MEDS: Insulin GLARgine 100 Unit/mL Syringe SUBQ SCH (20:55)
--- NOTE | 2016-10-31 23:55 | NUR ---
ACTIVITY/BP Pt was able to get to the [facility] with 2PA, pt advised to administer RADIO ADJUSTER Dilaudid beforehand. Pt still c/o intense pain to perineal area. Pt had no success with a bowel movement and continues to decline his Lactulose. Pt was hypertensive on assessment >180 systolic and received 2.5 mg IV Metoprolol.
[2016-11-01] VITALS (11 sets, daily range): BP systolic 139–170; BP diastolic 70–89; PULSE 70–83; RESP 15–18; O2SAT 94–99
[2016-11-01] MEDS: Clindamycin Inj 900 MG in IV Premix 1 EACH IV SCH ×3 (00:46→17:03)
[2016-11-01] MEDS: Meropenem Inj 2,000 MG in 0.9% Sodium Chloride-Pha MIX 100 ML IV SCH ×3 (02:19→18:12)
[2016-11-01] MEDS: 0.9% Sodium Chloride 1,000 ML IV SCH ×2 (03:46→11:22)
[2016-11-01] MEDS: Lactulose 20 Gm/30 mL 30 mL Syrup PO SCH ×4 (06:30→20:25)
[2016-11-01] MEDS: Alum-Mag Hydrox-Simeth 30 mL Suspension PO PRN ×2 (06:50→22:01)
[2016-11-01] MEDS: Insulin LISPRO 300 Unit/3 mL Inj SUBQ SCH ×4 (08:10→20:25)
--- NOTE | 2016-11-01 10:51 | PCM.PNSURG ---
Subjective Date of Service: Nov 01, 2016 Visit Information: Reason for Visit Perineal Gangrene Surgery/Surgery Date Post-Op Day # Date of Admission: Oct 25, 2016 at 22:25 Hospital Day # Subjective: No acute overnight events Pain is still an issue but improving Had large BM this morning, his first since admission Voiding spontaneously Afebrile Objective Vital Sign- Last 8 Hours Date Time Temp Pulse Resp B/P Pulse Ox O2 Delivery O2 Flow Rate FiO2 11/01/16 08:51 74 11/01/16 07:53 36.9 81 15 139/81 98 Nasal Cannula 2.00 11/01/16 07:53 Supplement Oxygen 11/01/16 06:23 Supplement Oxygen 11/01/16 05:08 83 11/01/16 03:59 36.9 79 15 142/71 99 Nasal Cannula 1.00 Intake and Output- Last 8 Hour 11/01/16 Cumulative From/Thru 07:00 10/25/16 00:59 - 11/01/16 06:39 Intake Total 1120 ml 64208 ml Output Total 1800 ml 19387 ml Balance -680 ml 94209 ml Intake Oral 600 ml 4890 ml IV Total 520 ml 76442 ml Output Urine Total 1800 ml 21034 ml Estimated Blood Loss 450 ml # Voids 5 # Bowel Movements 0 General: Alert, Oriented X3, No Acute Distress Neck: Supple Lungs: Normal Air Movement Abdomen: Benign, Soft SURGICAL WOUND : Wound Location/Description Wound vac holding suction in perineum. Some erythema and tenderness of the scrotum but no fluctuance or open wounds. Result Diagram: 10/31/16 0400 10/31/16 0400 Assessment & Plan Impression 65M with perineal necrotizing fascitis (Delphine's gangrene) s/p debridement and washout with placement of wound vac. Patient is now hemodynamically stable with a normal white count and no evidence of worsening infection on physical exam. Problems: Plan - Wound vac change with wound care team tomorrow am. Please page surgical service so that a member of the team can be present for this. - Continue broad spectrum antibiotics - Aggressive glycemic control - Appreciate ongoing care from primary medicine team VTE Prophylaxis: SCDs Resuscitation Status: CPR: Attempt Resuscitation Evan Sagastume MD Nov 01, 2016 10:51
[2016-11-01 12:10] LABS: Mean Corpuscular Hemoglobin 28.5 pg (27.0-35.0); Mean Corpuscular Volume 87.2 fL (81-100)
--- NOTE | 2016-11-01 13:52 | NUR ---
Social Work: Discharge planning D&A: Per Nick negro and MD in AM rounds, d/c recommendation continues to be for SNF via cabulance. ROCK CRUSHER OPERATOR updated pt and provided pt with SNF choices list. Pt reports preference for [facility]. ROCK CRUSHER OPERATOR completed initial referral to this facility; providing [employer] access. P: Pt likely to d/c to SNF via cabulance; [facility] preferred. ROCK CRUSHER OPERATOR will continue to follow. AMMON Tadeo Addendum: 11/01/16 at 1402 by JESSICA BOYD SS ROCK CRUSHER OPERATOR informed pt that insurance may not cover transportation to SNF facility; pt reports understanding. AMMON Tadeo
--- NOTE | 2016-11-01 14:32 | PCM.PNMED ---
Subjective Date of Service Nov 01, 2016 Subjective Patient states that he is feeling fairly well today, is getting somewhat bored and frustrated with his hospital stay. Denies chest pain, SOB, nausea, vomiting , or diarrhea. No significant overnight events Comprehensive ROS negative except as listed above. Exam Vital Signs Vital Sign - Last Date Time Temp Pulse Resp B/P Pulse Ox O2 Delivery O2 Flow Rate FiO2 11/01/16 12:42 Room Air 11/01/16 12:16 36.8 72 16 170/89 94 2.00 Intake and Output 10/31/16 10/31/16 11/01/16 Cumulative From/Thru 15:00 23:00 07:00 10/25/16 00:59 - 11/01/16 06:39 Intake Total 1292 ml 1120 ml 75297 ml Output Total 1150 ml 1800 ml 40204 ml Balance 142 ml -680 ml 53893 ml Intake Oral 650 ml 600 ml 4890 ml IV Total 642 ml 520 ml 30280 ml Output Urine Total 1150 ml 1800 ml 17717 ml Estimated Blood Loss 450 ml # Voids 5 # Bowel Movements 0 Exam Gen: A/O x3 pleasant cooperative male in mild acute distress secondary to mild depression Neck: Supple, non tender, full ROM HEENT: PERRL, EOMI, no scleral icterus, no conjunctival pallor CV: RRR, 2/6 systolic ejection murmur, no rubs or gallops Resp: Lungs CTA BL, no wheezing rales or rhonchi Abd: Obese, soft, non tender, no rebound guarding or masses Extr: Wound Vac in place in perineum, no clubbing cyanosis, mild BL LE edema Neuro: CN 2-12 grossly intact, no focal neurologic deficit Psych: Pleasant and appropriate mood and affect. IVs and Medications IV Fluids NS @ 100 ml/hr 150 ml NS delivered with IV medication Medications Reviewed: Medications were reviewed in detail Lab and Diagnostics Item Value Date Time Hematocrit 40.0 % L 10/25/161954 Red Blood Count 3.37 mil/mm3 L 11/01/16 1140 Mean Corpuscular Volume 87.2 fL 11/01/16 1140 Mean Corpuscular Hemoglobin 28.5 pg 11/01/16 1140 Mean Corpuscular Hemoglobin Concent 32.7 % 11/01/16 1140 Red Cell Distribution Width 13.5 % 11/01/16 1140 Estimat Glomerular Filtration Rate 70 mL/min 11/01/16 1140 Calcium Level 8.7 mg/dL 11/01/16 1140 Result Diagram: 11/01/16 1140 11/01/16 1140 Microbiology MRSA nasal - negative Blood cultures show no growth after 24hours Wound cultures show no organisms. X-Rays, CTs and MRIs CT ABDOMEN AND PELVIS WITH CONTRAST 1. Subcutaneous gas collection within the left perineum, consistent with infection, with gas-forming organism (necrotizing fasciitis). 2. Cholelithiasis. 3. Small hiatal hernia. 4. Findings discussed with Dr. Mirza on 10.25.16 at 2148 hrs. Dictated by: Monika Bates M.D. on 10/25/2016 at 21:43 Approved by: Monika Bates M.D. on 10/25/2016 at 21:49 X-RAY CHEST ONE VIEW, PORTABLE IMPRESSION: No acute process. Dictated by: Monika Bates M.D. on 10/25/2016 at 20:08 Approved by: Monika Bates M.D. on 10/25/2016 at 20:08 . Additional Diagnostics SPECIMEN: Perineum, biopsy CLINICAL HISTORY: PERINEAL SOFT TISSUE INFECTION WITH GAS 1). PERINEAL TISSUE, ? NECROTIZING FASCIITIS FINAL DIAGNOSIS: 1.PERINEAL SOFT TISSUE, DEBRIDEMENT: SKIN AND SOFT TISSUE NECROSIS WITH LARGE AND SMALL VESSEL VASCULITIS AND ACUTE INFLAMMATION ALSO PRESENT. NO MUSCLE IDENTIFIED. NO VIABLE TISSUE IS PRESENT. Negative for malignancy, see comment. NOTE: The differential diagnosis of these findings include necrotizing fasciitis, ischemic/decubitus ulcer, infection, vasculopathic etiology. Clinical correlation recommended. Please correlate with tissue cultures. There is no evidence of malignancy. This case has been reviewed by dermatopathologist Dr. Conde, who agrees with the interpretation. GROSS DESCRIPTION: The specimen is received in one formalin filled container labeled with the patient's name, sublabeled "perineal tissue" and consists of a dark brown friable dome shaped portion of tissue which measures 2.0 x 1.2 x 0.9 CM. The specimen is inked blue. The specimen is sectioned into 5 pieces and entirely submitted in 2 cassettes. 10/26/2016ID Kenan Chase M.D.,[facility] Assessment & Plan Patient is a 65-year-old male with a history of type 2 diabetes, and past history of perineal abscesses who presents with pain and swelling in his perineal area for one week. Admitted for Delphine's gangrene. 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 CT as described above. - Continue with meropenem, clindamycin and Linezolid - Dr. Mims of General Surgery was consulted and took the patient to surgery urgently (10/26/16) and a second washout on 10/27/16. - Diabetic Diet - Dilaudid TOWBOAT CAPTAIN - Zosyn, clindamycin, and Linezolid IV - Consult ID (Dr. Sherwood) Acute sepsis. Present on admission. Resolved - Secondary to Delphine's gangrene in the context of uncontrolled type 2 diabetes. - NS @ 100 ml/hr - Blood cultures show no growth after 24hrs - Wound cultures show no organisms. - Zosyn, clindamycin, and Linezolid IV Acute kidney injury. Present on admission. Resolved - Most recent Cr 1.19 - NS @ 100 ml/hr - Avoid nephrotoxic medications - Monitor BMP Type 2 Diabetes, Uncontrolled, Present on Admission, Chronic - BG 320 on admission. Pt reports BG in 200s for last few days. - Hold home glipizide and metformin until off of pressors. - Insulin gtt. - Lantus 30U HS - A1c 11. - Patient now eating, placed on sliding scale insulin along with Lantus 30U. Hypertension, acute on chronic. - Increase Lisinopril to 30mg starting (10/31). - Patient received Labetalol 200mg PO at 1800 10/30, and Labetalol 20mg IV 10/31 - Continue to monitor BP Angina. Not Present on Admission. Stable - Troponin - not elevated - EKG reviewed. Normal sinus rhythm -This is likely secondary effects to medications. Will monitor. Constipation resolved -Lactulose 15 g 4 times a day until patient has bowel movement -Patient had a bowel movement today may resume normal when necessary bowel regimen Other Medical Conditions GERD - GI prophylaxis with pepcid Depression and Anxiety - Bowel regimen as needed - Antiemetic as needed - PT as tolerated Disposition: Patient is progressing daily and is now off pressors. Patient is still requiring IV antibiotics. Patient will require a manager terminal treatment with antibiotics, the length at which inpatient vs. outpatient is yet to be determined will discuss with infectious disease 11/02/16. Pain Evaluation: Adequate Pain Control GI Prophylaxis: Proton Pump Inhibitor VTE Prophylaxis: SCDs VTE Mechanical Devices: Intermittant Pneumatic CD Resuscitation Status: CPR: Attempt Resuscitation Attending Statement The patient was seen and examined together with Dr. Jaimes on 11/01/16 and I have added additional information to the note above. Alber Jaimes DO Nov 01, 2016 14:32 Manisha Moseley DO Nov 01, 2016 16:54
--- NOTE | 2016-11-01 15:42 | NUR ---
Bowel Movement 0800 - He was able to have a large loose bowel movement this morning much to his relief as he said he had been having abdominal discomfort. 929 - Discussed his care with Dr. Moseley, Dr. Jaimes, and the rest of the multidisciplinary care team during morning rounds. Informed them that he finally had a bowel movement. Care continues. 1544 - The ASSET SPECIALIST noted his IJ dressing was starting to come off. Called Clifford FRASER from IV therapy who said she would come to his room in about an half hour to change it. The dressing was stabilized with tape in meantime. Care continues. Addendum: 11/01/16 at 1941 by MORALES AGUILAR RN [id number] - Changed his wound vac twice. He is having multiple loose stools today which keep soiling the wound vac dressings making it difficult to keep a good seal. He also has multiple folds of skin that are difficult to keep dry and stick the wound vac dressings to in order to create a tight seal. cage shift manager notified. Care continues.
[2016-11-01] MEDS: Insulin GLARgine 100 Unit/mL Syringe SUBQ SCH (20:22)
[2016-11-02] VITALS (10 sets, daily range): BP systolic 145–176; BP diastolic 74–93; PULSE 74–86; RESP 14–20; O2SAT 95–99
[2016-11-02] MEDS: Clindamycin Inj 900 MG in IV Premix 1 EACH IV SCH ×2 (00:36→09:11)
[2016-11-02] MEDS: 0.9% Sodium Chloride 1,000 ML IV SCH (01:04)
[2016-11-02] MEDS: Meropenem Inj 2,000 MG in 0.9% Sodium Chloride-Pha MIX 100 ML IV SCH ×2 (02:44→12:23)
[2016-11-02 04:32] LABS: Mean Corpuscular Hemoglobin 28.3 pg (27.0-35.0); Mean Corpuscular Volume 87.1 fL (81-100); Platelet Count 275 bil/L (150-400)
[2016-11-02 04:45] LABS: INR 1.02 ratio
[2016-11-02 04:48] LABS: BASOPHILS % (AUTO) 0.6 % (0-3); EOSINOPHILS % (AUTO) 5.9 % (0-5); MONOCYTES % (AUTO) 7.1 % (4-12); NEUTROPHILS % (AUTO) 57.2 % (40-74)
[2016-11-02 05:04] LABS: Magnesium 1.9 mg/dL (1.6-2.6); Phosphorus 2.3 mg/dL (2.5-4.9)
[2016-11-02] MEDS: Lactulose 20 Gm/30 mL 30 mL Syrup PO SCH ×3 (05:30→16:30)
--- NOTE | 2016-11-02 05:56 | NUR ---
BM/WOUND VAC Pt had multiple liquid stools which effected the seal on the wound vac. Wound was flushed and kept clean. Wound vac was attempted to be replaced, but the seal had continuous leaks. Pt is away of the dilemma and agrees to wait for wound care to evaluate.
--- NOTE | 2016-11-02 07:29 | PCM.PNSURG ---
Subjective Date of Service: Nov 02, 2016 Visit Information: Reason for Visit Perineal Gangrene Surgery/Surgery Date Post-Op Day # Date of Admission: Oct 25, 2016 at 22:25 Hospital Day # Subjective: Patient's wound VAC came off last night. He complains of some nausea and diarrhea, but no fevers, sweats or chills. Postop General: No Shortness of Breath, No Chest Pain Gastrointestinal: Good Appetite, Diarrhea Pain Management: TILE TRIMMER without Basal Objective Objective Perineal wound Vac has been removed, surrounding area tender but not erythematous. No purulent drainage. Vital Sign- Last 8 Hours Date Time Temp Pulse Resp B/P Pulse Ox O2 Delivery O2 Flow Rate FiO2 11/02/16 05:48 Supplement Oxygen 11/02/16 03:25 36.8 75 16 166/92 95 Room Air 11/02/16 02:51 14 96 11/01/16 23:44 37.0 83 16 157/82 96 Room Air Intake and Output- Last 8 Hour 11/02/16 Cumulative From/Thru 07:00 10/25/16 00:59 - 11/02/16 06:51 Intake Total 675 ml 44977 ml Output Total 825 ml 03215 ml Balance -150 ml 95514 ml Intake Oral 325 ml 6295 ml IV Total 350 ml 41474 ml Output Urine Total 825 ml 57168 ml Stool Total 6 ml Estimated Blood Loss 450 ml # Voids 5 # Bowel Movements 2 2 General: Alert, Oriented X3, Cooperative Neck: Full Range of Motion Lungs: Normal Air Movement Heart: Exam Unremarkable Result Diagram: 11/02/16 0415 11/02/16 0415 Assessment & Plan Impression 65 year old male s/p perineal wound debridement -Consult with wound care to re-apply wound vac -Continue pain management Problems: VTE Prophylaxis: SCDs Resuscitation Status: CPR: Attempt Resuscitation Cristhian Kuo DO Nov 02, 2016 07:29
[2016-11-02] MEDS: Alum-Mag Hydrox-Simeth 30 mL Suspension PO PRN ×2 (08:48→19:41)
[2016-11-02] MEDS: Insulin LISPRO 300 Unit/3 mL Inj SUBQ SCH ×4 (09:09→23:10)
--- NOTE | 2016-11-02 10:40 | NUR ---
Senior Living Transfer: Spoke with Anita in admissions at [facility] and she is filling in today and is needing to have the facesheet refaxed to her. She will start working on authorization in anticipation for discharge on 11/03/16 Updated TAP OUT OPERATOR Addendum: 11/02/16 at 1357 by YORDAN HENRIQUEZ CM [facility] has initiated authorization and were given REF #, patient now likely to go tomorrow. Updated TAP OUT OPERATOR
--- NOTE | 2016-11-02 11:11 | NUR ---
Wound Care Patient seen at beside, apparently patient having liquid stool at this time and seal was lost on NPWT in the last 24 hours or so, drape had been removed but foam remained in wound bed. After irrigation with 4% topical lidocaine foam was removed, this revealed a healthy granulating wound bed that is basically unchanged dimensionally from previous visits. Given patients incontinence a seal on NPWT will be nearly impossible, today after cleaning the wound it was packed with dry kerlix and covered with ABD pad this can be changed BID by nursing, saline can be added to kerlix if the wound environment is thought to be too dry. At this point perhaps surgical service line might consider delayed closure over a drain going forward. Wound to recheck on this patient 11/04.
[2016-11-02] MEDS: Nystatin 100,000 Unit/Gm 15 Gm Powder TOPICAL SCH ×2 (12:23→22:50)
[2016-11-02] MEDS ORDERED: oxyCODONE-Acetamin 5-325 mg Tablet PO PRN (15:10)
[2016-11-02] MEDS ORDERED: HYDROmorphone 1 mg/mL Inj IVPUSH PRN (15:30)
[2016-11-02] MEDS: Sodium Chloride LOK Flush 10 mL Syringe IVFLUSH SCH ×3 (16:30→22:34)
--- NOTE | 2016-11-02 16:40 | CONS ---
[address] [address] CONSULTATION REPORT PATIENT: MANNY PRESTON : 1950 MR#: [id number] ADMIT: 10/25/2016 JOB ID: [id number] DATE OF SERVICE: 11/02/[address] Jaimes for this timely consult. REASON FOR CONSULTATION: Delphine gangrene. HISTORY OF THE PRESENT ILLNESS: The patient is a 65-year-old gentleman, whose past medical history includes type 2 diabetes with prior diabetic foot infections, as well as hypertension and arthritis. The patient does have a history of perineal abscesses in the past and he presented to this hospital and was admitted on October 26, with severe pain and swelling in his perineal area, which had started about a week before. It was associated with nausea, vomiting, diarrhea, malaise, and lower abdominal pain with particular pain posterior to the scrotum. He notes this had been going on for several days and he had tried to get through it by taking some old antibiotics he had in a closet at home, which he believes were primarily Keflex, but it sounds as if maybe he took more than one antibiotic. Following his admission here, the patient was evaluated with an abdominal CT scan which showed gas in the left perineal area consistent with a necrotizing fasciitis, or soft tissue infection. On that basis, he was taken to the operating room by Dr. Mims of General Surgery. Dr. Mims debrided the perineal necrotizing soft tissue infection. He confirmed that there was, in fact, necrotizing fasciitis with necrotic ortiz fascia. He was subsequently taken back to the operating room by Dr. Higuera on the for a second-look operation, and at that time, Dr. Higuera just performed a washout as the area actually was looking considerably improved. Since then, he has had ongoing dressing changes as well as placement of a wound VAC and has slowly but steadily improved. I have been out of town the last nine days, so this has been my 1st chance to see the patient. I have heard about him a bit by telephone, however. Today, I am asked whether or not the patient could be discharged to a snf facility for ongoing wound management, and if so, with what antibiotics. The barnard question here is whether antibiotics will be IV or oral. In speaking to the patient this afternoon, he reports no fevers, chills or sweats and states that was really not a feature of this illness. He does not have any pulmonary complaints, though he does have loose stools. He states initially he had no bowel movement for several days following admission, and finally, after aggressive efforts to get some GI motility started, we are now unable able to slow it up as he has been having considerable liquid stools. He denies significant abdominal pain. States that his perineal area is still packed and is painful when they do the dressing changes but otherwise does not bother him much. PAST MEDICAL HISTORY: 1. Diabetes mellitus. 2. Arthritis. 3. GERD. 4. History of diabetic foot infections. 5. Peripheral neuropathy due to diabetes. SOCIAL HISTORY: The patient is a nonsmoker, nondrinker. He does report though in the past he was a smoker. 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 FAMILY HISTORY: Unknown. Patients is adopted. It is notable that the patient served in the [employer] during . REVIEW OF SYSTEMS: Was done. This afternoon, the patient has no significant headache. He has no visual complaint, no sore throat. No odynophagia or dysphagia. He does complain of some reflux-type symptoms which are chronic for him. No significant cough, chest pain, shortness of breath, nausea or vomiting. He still has liquid stools as mentioned above and some perineal pain at the site of his recent surgical debridement. He notes that he has quite severe neuropathy and does not feel much in his feet and really feels nothing at all in the area of his toes. He has had no significant joint swelling recently, though he does suffer from arthritis. Remainder of the review of systems is negative. PHYSICAL EXAMINATION: Reveals an afebrile gentleman, temp 37 degrees. His only temperature was 38.6 right after admission on the . Since then, he has been afebrile. Pulse 86 and regular. Respiratory rate 18, blood pressure 145/82. He is saturating well on room air. Examination of the mental status reveals it to be clear. The patient is quite loquacious but is alert and organized in his presentation. No evidence of head trauma. No temporal wasting. Eyes without conjunctivitis or scleral icterus. Nose appears normal. Throat without hairy leukoplakia or thrush. He has only a few teeth left and they are in poor condition. His neck is supple. No cervical adenopathy or JVD is noted. Lungs quite clear. Cardiac tones with a 1/6 systolic murmur heard best along the lower left sternal border. The abdomen is soft and nontender without organomegaly or ascites. The perineal area has a large packing. I removed the external dressings but did not pull out the packing. The packing extends from the posterior scrotum back towards the anus and the area is without any odor and without any surrounding inflammation. There is still some tenderness involving the distal posterior scrotum which is mildly erythematous and slightly tender but no bullae or skin breakdown are seen. The patient's legs are without significant synovitis or inflammation. His left foot has had the 5th digit removed. There is severe peripheral neuropathy in both lower extremities. The patient has almost insensate feet and no proprioception. All his toenails are grossly involved with fungal process, but there is no evidence of active infection in either of the feet at this point. Peripheral pulses are quite minimal in the extremities and I really cannot appreciate any posterior tibial or dorsal pedal pulse on either side. Capillary refill is slow but present. LABORATORIES: Include white count 8300, 6% eos. Creatinine is 1.05. LFTs are normal. Procalcitonin is less than 0.1. Urinalysis on admission, 0-5 white cells; not repeated. Micro studies include negative blood cultures, negative MRSA screen, and negative culture done from the surgery on October 26. The last imaging was a chest x-ray, done on October 26, which was done to confirm placement of the central line. No significant infiltrate was noted. The abdominal CT was previously reviewed. This was done on October 25 in the ED and showed subcutaneous gas within the left perineum consistent with infection, and in fact, necrotizing fasciitis. IMPRESSION: This is an unfortunate gentleman with relatively few medical problems. He seems to enjoy life and gets around fairly well despite his diabetes with peripheral neuropathy. Unfortunately, he has suffered quite a severe necrotizing fasciitis involving the perineal area and has undergone appropriate debridement. To date, he has been treated with broad-spectrum antibiotics including meropenem and clindamycin, which I think was appropriate given the degree and severity of this infection, but I think at this point, we can start to pull back considerably as he has improved and is approaching the point where he can be discharged to a snf facility for additional wound management. I suspect the reasons his cultures were negative when he first came in was because of pretreatment with antibiotics at home, but we would make the assumption that these were likely aerobic gram-negative rods as well as anaerobes involved in this gas-forming necrotizing process which has now been appropriately debrided. RECOMMENDATIONS: 1. The patient can be discharged at any time from an ID point of view. 2. I would give him about one week of a combination of levofloxacin and Flagyl. The levofloxacin should be 750 once a day and the Flagyl 750 p.o. b.i.d. 3. If we do not know the patient's QT interval, we should double check it as levofloxacin can prolong the QTc interval, and it would behoove us to make sure that is reasonable, but otherwise, I see no reason to continue with any other than oral antibiotics. 4. ID will go ahead and sign off as there are no active issues at this time.
--- NOTE | 2016-11-02 19:20 | PCM.PNMED ---
Subjective Date of Service Nov 02, 2016 Subjective Nursing reports patient had multiple loose stools during the night. No other acute events overnight. Patient seen and examined. Patient reports loose stools, but attributes this to the bowel regimen that we gave yesterday. These stools are improving. Pt c/ o mild epigastric pain with associated reflux sxs. Denies any CP, SOB, MATRIN, or nausea and vomiting. Patient reports most of his pain occurs with wound care movement. ROS otherwise negative unless noted above. Exam Vital Signs Vital Sign - Last Date Time Temp Pulse Resp B/P Pulse Ox O2 Delivery O2 Flow Rate FiO2 11/02/16 16:02 37.3 79 18 176/93 97 Room Air 11/01/16 20:56 2.00 Intake and Output 11/01/16 11/01/16 11/02/16 Cumulative From/Thru 15:00 23:00 07:00 10/25/16 00:59 - 11/02/16 06:51 Intake Total 1307 ml 675 ml 22752 ml Output Total 1156 ml 825 ml 53054 ml Balance 151 ml -150 ml 54169 ml Intake Oral 1080 ml 325 ml 6295 ml IV Total 227 ml 350 ml 49539 ml Output Urine Total 1150 ml 825 ml 77674 ml Stool Total 6 ml 6 ml Estimated Blood Loss 450 ml # Voids 5 # Bowel Movements 2 2 Exam Constitutional: Awake and alert. In no acute distress. Head: normocephalic and atraumatic Eyes: EOMI, pink conjunctiva Heart: regular rate and rhythm Lungs: clear to auscultation bilaterally. No wheeze, rales, or rhonchi. ABD: protuberant. mild epigastric tenderness. Bowel sounds present throughout. : Surgical site healing with surrounding erythema where adhesive tape is placed. Minimal drainage. Granulation tissue surrounding site with signs of healing. No signs of worsening infection. Skin: Warm, dry, no rash other than mentioned above. Musculoskeletal: moves all four extremities appropriately Psych: appropriate mood and affect IVs and Medications Medications Reviewed: Medications were reviewed in detail Lab and Diagnostics Item Value Date Time Red Blood Count 3.18 mil/mm3 L 11/02/16414 Mean Corpuscular Volume 87.1 fL 11/02/16414 Mean Corpuscular Hemoglobin 28.3 pg 11/02/16414 Mean Corpuscular Hemoglobin Concent 32.5 % 11/02/16414 Red Cell Distribution Width 13.4 % 11/02/16414 Platelet Count 275 pratibha/L 11/02/16414 Neutrophils (%) (Auto) 57.2 % 11/02/16414 Lymphocytes (%) (Auto) 27.3 % 11/02/16414 Monocytes (%) (Auto) 7.1 % 11/02/16414 Eosinophils (%) (Auto) 5.9 % H 11/02/16414 Basophils (%) (Auto) 0.6 % 11/02/16414 Band Neutrophils % 2 % 11/02/16414 Estimat Glomerular Filtration Rate 75 mL/min 11/02/16414 Calcium Level 8.8 mg/dL 11/02/16414 Phosphorus Level 2.3 mg/dL L 11/02/16414 Magnesium Level 1.9 mg/dL 11/02/16414 Total Bilirubin 0.2 mg/dL 11/02/16414 Aspartate Amino Transf (AST/SGOT) 13 U/L 11/02/16414 Alanine Aminotransferase (ALT/SGPT) 10 U/L 11/02/16414 Alkaline Phosphatase 72 U/L 11/02/16414 Total Protein 6.4 g/dL 11/02/16414 Albumin 2.8 g/dL L 11/02/16414 Procalcitonin 0.07 ng/mL 11/02/16414 Prothrombin Time 10.9 sec 11/02/16414 Prothromb Time International Ratio 1.02 ratio 11/02/16414 Result Diagram: 11/02/1641411/02/16414 Microbiology MRSA nasal - negative Blood cultures show no growth after 24hours Wound cultures show no organisms. X-Rays, CTs and MRIs CT ABDOMEN AND PELVIS WITH CONTRAST 1. Subcutaneous gas collection within the left perineum, consistent with infection, with gas-forming organism (necrotizing fasciitis). 2. Cholelithiasis. 3. Small hiatal hernia. 4. Findings discussed with Dr. Mirza on 10.25.16 at 2148 hrs. Dictated by: Monika Bates M.D. on 10/25/2016 at 21:43 Approved by: Monika Bates M.D. on 10/25/2016 at 21:49 X-RAY CHEST ONE VIEW, PORTABLE IMPRESSION: No acute process. Dictated by: Monika Bates M.D. on 10/25/2016 at 20:08 Approved by: Monika Bates M.D. on 10/25/2016 at 20:08 . Additional Diagnostics SPECIMEN: Perineum, biopsy CLINICAL HISTORY: PERINEAL SOFT TISSUE INFECTION WITH GAS 1). PERINEAL TISSUE, ? NECROTIZING FASCIITIS FINAL DIAGNOSIS: 1.PERINEAL SOFT TISSUE, DEBRIDEMENT: SKIN AND SOFT TISSUE NECROSIS WITH LARGE AND SMALL VESSEL VASCULITIS AND ACUTE INFLAMMATION ALSO PRESENT. NO MUSCLE IDENTIFIED. NO VIABLE TISSUE IS PRESENT. Negative for malignancy, see comment. NOTE: The differential diagnosis of these findings include necrotizing fasciitis, ischemic/decubitus ulcer, infection, vasculopathic etiology. Clinical correlation recommended. Please correlate with tissue cultures. There is no evidence of malignancy. This case has been reviewed by dermatopathologist Dr. Conde, who agrees with the interpretation. GROSS DESCRIPTION: The specimen is received in one formalin filled container labeled with the patient's name, sublabeled "perineal tissue" and consists of a dark brown friable dome shaped portion of tissue which measures 2.0 x 1.2 x 0.9 CM. The specimen is inked blue. The specimen is sectioned into 5 pieces and entirely submitted in 2 cassettes. 10/26/2016DC Kenan Chase M.D.,[facility] Assessment & Plan Patient is a 65-year-old male with a history of type 2 diabetes, and past history of perineal abscesses who presents with pain and swelling in his perineal area for one week. Admitted for Delphine's gangrene. 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 CT as described above. - Stop meropenem, clindamycin and Linezolid (11/02) - Dr. Mims of General Surgery was consulted and took the patient to surgery urgently (10/26/16) and a second washout on 10/27/16. 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 Sherwood consulted - will start PO medications to continue outpatient -Start Levaquin 750mg PO daily for seven days, Flagyl 750mg PO BID for seven days- instructed to avoid alcohol. Patient QTc 448 Acute sepsis. Present on admission. Resolved - Secondary to Delphine's gangrene in the context of uncontrolled type 2 diabetes. - NS @ 100 ml/hr - Blood cultures show no growth after 48hrs - Wound cultures show no organisms. - Stopped Zosyn, clindamycin, and Linezolid IV Acute kidney injury. Present on admission. Resolved - Cr stable at 1.05 (11/02) - NS @ 100 ml/hr - Monitor BMP Type 2 Diabetes, Uncontrolled, Present on Admission, Chronic. Ongoing. - BG 320 on admission. Pt reports BG in 200s for last few days. - Hold home glipizide and metformin until BG under more control - Insulin gtt. with Pradial doses of 10U breakfast, lunch, and dinner - Lantus 30U HS - A1c 11. Hypertension, acute on chronic. Ongoing - Increase Lisinopril to 30mg starting (10/31). - Patient received Labetalol 200mg PO at 1800 10/30, and Labetalol 20mg IV 10/31 - Continue to monitor BP Angina. Not Present on Admission. Resolved - Troponin - not elevated - EKG reviewed. Normal sinus rhythm -This is likely secondary effects to medications. Will monitor. Constipation resolved - Stop Lactulose, patient having multiple bowel movements Other Medical Conditions GERD - GI prophylaxis with pepcid Depression and Anxiety - Bowel regimen as needed - Antiemetic as needed - PT as tolerated Disposition: Patient is progressing daily and is now off pressors. Patient has transitioned to PO antibiotics. Infectious disease has seen patient and formulated an outpatient plan with plan to go half-way prior to home for continued wound care management. Will likely go home tomorrow or the next day pending on placement. GI Prophylaxis: Proton Pump Inhibitor VTE Prophylaxis: SCDs VTE Mechanical Devices: Intermittant Pneumatic CD Resuscitation Status: CPR: Attempt Resuscitation Attending Statement The patient was seen and examined together with Dr. Dorman on 11/02/2016 and I agree with the history, exam and plan as outlined in the note above. . Sj Dorman DO Nov 02, 2016 19:20 Naldo Riggs MD Nov 08, 2016 16:15
--- NOTE | 2016-11-02 19:24 | NUR ---
BP/IV access Denies Chest pain or SOB, tele SR 70s no ectopy-- tele DC'd per MD orders. Hypertensive this shift, 140s systolic this AM prior to medication administration, 170s systolic this afternoon, asymptomatic. 99% on RA, states that he has an occasional cough during the night. Denies SOB. C/O of heartburn and low grade nausea with no emesis, pepcid given as ordered in addition to Maalox. Reports gas pain/cramping. Lactulose withheld this AM and afternoon due to multiple loose stools. A&O, KYMBERLY, reports DM neuropathy/numbness in bilateral feet and toes. Moderate decrease r/t pain in [place] area (post I and D). Per resident, ok for patient to have no IV access. Triple lumen IJ removed by IV therapy without complication, no tele on, most likely DC tomorrow to SNF -- all pain meds and antbx switched to PO.
[2016-11-02] MEDS: Insulin GLARgine 100 Unit/mL Syringe SUBQ SCH (23:01)
[2016-11-03] MEDS: Sodium Chloride LOK Flush 10 mL Syringe IVFLUSH SCH ×5 (00:30→15:34)
[2016-11-03] MEDS: oxyCODONE-Acetamin 5-325 mg Tablet PO PRN ×3 (01:29→22:30)
[2016-11-03] MEDS ORDERED: oxyCODONE-Acetamin 5-325 mg Tablet PO PRN (03:10)
[2016-11-03] MEDS: Lidocaine 5% 35.5 Gm Ointment TOPICAL SCH ×3 (03:30→23:00)
[2016-11-03 05:17] VITALS: BP 147/78; PULSE 82; RESP 18; O2SAT 95
--- NOTE | 2016-11-03 05:22 | NUR ---
Wound Care Patient arrived to unit around 2200. Made settle and comfortable to new room and environment. Alert and oriented X3 and able to make needs known. Medicated with Percocet x2 before wound dressing changed on perineal area. Wound irrigated with normal saline and topical lidocaine applied to wound bed and pack with Kerlix per orders and patient was very pleased that wound care didn't cause him discomfort or increased pain. serosanguineous drainage noted during dressing change. No foul smell. Patient is sleeping soundly at this current moment and call light w/in reach. Will continue to monitor.
--- NOTE | 2016-11-03 07:19 | PCM.PNSURG ---
Subjective Date of Service: Nov 03, 2016 Visit Information: Reason for Visit Perineal Gangrene Surgery/Surgery Date Post-Op Day # Date of Admission: Oct 25, 2016 at 22:25 Hospital Day # Subjective: Patient is resting comfortably in bed. He had his dressing changed again last night, and denies any increasing pain, sweats, fevers, nausea, vomiting. He is still having diarrhea. He is eating and drinking, Postop General: No Complaints Gastrointestinal: Tolerating Oral Feedings Pain Management: PO Postop Activity: Ambulate with Assist Objective Objective Wet-to-dry dressing on perineal area appears clean. No surrounding erythema or tenderness. Vital Sign- Last 8 Hours Date Time Temp Pulse Resp B/P Pulse Ox O2 Delivery O2 Flow Rate FiO2 11/03/16 05:17 36.7 82 18 147/78 95 Room Air 11/02/16 23:45 36.5 80 18 155/82 95 Room Air Intake and Output- Last 8 Hour 11/03/16 Cumulative From/Thru 07:00 10/25/16 00:59 - 11/03/16 05:16 Intake Total 0 ml 12136 ml Output Total 975 ml 67146 ml Balance -975 ml 15644 ml Intake Oral 0 ml 7095 ml IV Total 47064 ml Output Urine Total 975 ml 17424 ml Stool Total 6 ml Estimated Blood Loss 450 ml # Voids 5 # Bowel Movements 0 5 General: Alert, Oriented X3, Cooperative, No Acute Distress Neck: Full Range of Motion Lungs: Normal Air Movement Heart: Exam Unremarkable Result Diagram: 11/02/16 0415 11/02/16 0415 Assessment & Plan Impression 65-year-old male status post perineal wound debridement -Pain is controlled on oral meds -If diarrhea improves after discontinuation of antibiotics, consider replacement of wound VAC Problems: VTE Prophylaxis: SCDs Resuscitation Status: CPR: Attempt Resuscitation Cristhian Kuo DO Nov 03, 2016 07:19
[2016-11-03] MEDS: Nystatin 100,000 Unit/Gm 15 Gm Powder TOPICAL SCH ×2 (08:14→21:47)
[2016-11-03] MEDS: levoFLOXacin 750 mg Tablet PO SCH (08:14)
[2016-11-03] MEDS: Insulin LISPRO 300 Unit/3 mL Inj SUBQ SCH ×4 (08:15→22:00)
[2016-11-03 08:35] VITALS: BP 139/81; PULSE 88; RESP 19; O2SAT 96
--- NOTE | 2016-11-03 12:22 | NUR ---
Inpatient Wound Nurse Recommendation for discharge to SNF with wet to dry packing BID of perineal wound. Once liquid stools have stopped, NPWT can be resumed. This can be done at SNF or at outpatient Wound Center where patient should be seen within two weeks. MD and information systems planner notified.
--- NOTE | 2016-11-03 12:45 | NUR ---
Social Work- Readiness for Discharge/ Multidisciplinary Rounds Data: EMR reviewed. Pt is on day 9 of hospitalization for perineal gangrene per H&P. Pt discussed in multidisciplinary rounds. Pt will require SNF at discharge. Pt has been accepted at [facility] at discharge pending insurance authorization. Pt will require a wound VAC placed approximately 1 week after discharge at the Wound Center. T/C to Anita at [facility] regarding discharge plan and needs at discharge. Anita is agreeable to coordinating Wound Care appointment and states facility can manage wound VAC Anita is agreeable to taking pt when authorization comes from insurance. notified. MARGIE met with pt at bedside regarding discharge plan. Pt is agreeable to discharge to [facility] when medically ready. Paperwork in pt's chart. PASRR completed. SW will continue to follow. Assessment: Pt for whom SNF is medically necessary Plan: Pt is agreeable to discharge to [facility] when medically ready. Pt's insurance may not cover pt's transport to facility. Paperwork in pt's chart. PASRR completed. SW will continue to follow. AMMON Reveles
[2016-11-03 14:04] VITALS: BP 150/88; PULSE 85; RESP 20; O2SAT 97
--- NOTE | 2016-11-03 14:31 | NUR ---
Detention Transfer : Spoke with Anita from [facility] and they have authorization in place and can accept patient tomorrow morning. Updated MACHINE ACCOUNTANT
--- NOTE | 2016-11-03 15:17 | NUR ---
NUTRITION FOLLOW-UP: Assess: 65 YO M admitted to CCU for perineal gangrene s/p OR for surgical debridement. Wound vac is currently discontinued due to pt with liquid stools. Pt is tolerating diabetic diet and po intake is improving. PMHX: Type 2 diabetes, HTN, depression, anxiety, toe amputation. DIET: Diabetic. PO 50-100% of meals. LABS: Reviewed. Alb 2.8, Phos 2.3, Glu 163. MEDICATIONS: Insulin. GI: BM x 5 (11/02) SKIN: Perineal gangrene s/p surgical debridement. Wound care following ANTHROPOMETRICS: Wt: 175.2 kg, BMI 45.8 kg/m2, Admit wt: 163.5 kg. Adj. BW: 114.7 kg, IBW 95.4kg ESTIMATED NEEDS: Calories: 0988-1430 kcal/day (25-30 kcal/kg Adj. BW) Protein: 135-165 g/day (1.2-1.5 g/kg Adj. BW) NUTRITION DIAGNOSIS: 1) Altered nutrition related lab values related to endocrine dysfunction as evidence byA1C of 11--PERSISTS. INTERVENTION: 1) Inpt DM diet education provided 10/28. MONITOR/EVALUATE: PO intake, weights, labs, wounds, GI/nutrition status. Follow per moderate nutrition risk guidelines.
--- NOTE | 2016-11-03 15:47 | PCM.PNMED ---
Subjective Date of Service Nov 03, 2016 Subjective Pt still having loose BM Exam Vital Signs Vital Sign - Last Date Time Temp Pulse Resp B/P Pulse Ox O2 Delivery O2 Flow Rate FiO2 11/03/16 14:04 36.5 85 20 150/88 97 Room Air 11/01/16 20:56 2.00 Intake and Output 11/02/16 11/02/16 11/03/16 Cumulative From/Thru 15:00 23:00 07:00 10/25/16 00:59 - 11/03/16 05:16 Intake Total 1072 ml 0 ml 09766 ml Output Total 1700 ml 975 ml 03326 ml Balance -628 ml -975 ml 81817 ml Intake Oral 800 ml 0 ml 7095 ml IV Total 272 ml 71318 ml Output Urine Total 1700 ml 975 ml 61597 ml Stool Total 6 ml Estimated Blood Loss 450 ml # Voids 5 # Bowel Movements 3 0 5 Exam Constitutional: Awake and alert. In no acute distress. Head: normocephalic and atraumatic Eyes: EOMI, pink conjunctiva Heart: regular rate and rhythm Lungs: clear to auscultation bilaterally. No wheeze, rales, or rhonchi. ABD: protuberant. mild epigastric tenderness. Bowel sounds present throughout. : Surgical site healing with surrounding erythema where adhesive tape is placed. Minimal drainage. Granulation tissue surrounding site with signs of healing. No signs of worsening infection. Skin: Warm, dry, no rash other than mentioned above. Musculoskeletal: moves all four extremities appropriately Psych: appropriate mood and affect IVs and Medications Medications Reviewed: Medications were reviewed in detail Lab and Diagnostics Result Diagram: 11/02/165 11/02/16 0415 Microbiology MRSA nasal - negative Blood cultures show no growth after 24hours Wound cultures show no organisms. X-Rays, CTs and MRIs CT ABDOMEN AND PELVIS WITH CONTRAST 1. Subcutaneous gas collection within the left perineum, consistent with infection, with gas-forming organism (necrotizing fasciitis). 2. Cholelithiasis. 3. Small hiatal hernia. 4. Findings discussed with Dr. Mirza on 10.25.16 at 2148 hrs. Dictated by: Monika Bates M.D. on 10/25/2016 at 21:43 Approved by: Monika Bates M.D. on 10/25/2016 at 21:49 X-RAY CHEST ONE VIEW, PORTABLE IMPRESSION: No acute process. Dictated by: Monika Bates M.D. on 10/25/2016 at 20:08 Approved by: Monika Bates M.D. on 10/25/2016 at 20:08 . Additional Diagnostics SPECIMEN: Perineum, biopsy CLINICAL HISTORY: PERINEAL SOFT TISSUE INFECTION WITH GAS 1). PERINEAL TISSUE, ? NECROTIZING FASCIITIS FINAL DIAGNOSIS: 1.PERINEAL SOFT TISSUE, DEBRIDEMENT: SKIN AND SOFT TISSUE NECROSIS WITH LARGE AND SMALL VESSEL VASCULITIS AND ACUTE INFLAMMATION ALSO PRESENT. NO MUSCLE IDENTIFIED. NO VIABLE TISSUE IS PRESENT. Negative for malignancy, see comment. NOTE: The differential diagnosis of these findings include necrotizing fasciitis, ischemic/decubitus ulcer, infection, vasculopathic etiology. Clinical correlation recommended. Please correlate with tissue cultures. There is no evidence of malignancy. This case has been reviewed by dermatopathologist Dr. Conde, who agrees with the interpretation. GROSS DESCRIPTION: The specimen is received in one formalin filled container labeled with the patient's name, sublabeled "perineal tissue" and consists of a dark brown friable dome shaped portion of tissue which measures 2.0 x 1.2 x 0.9 CM. The specimen is inked blue. The specimen is sectioned into 5 pieces and entirely submitted in 2 cassettes. 10/26/2016DC Kenan Chase M.D.,[facility] Assessment & Plan Patient is a 65-year-old male with a history of type 2 diabetes, and past history of perineal abscesses who presents with pain and swelling in his perineal area for one week. Admitted for Delphine's gangrene. 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 CT as described above. - Dr. Mims of General Surgery was consulted and took the patient to surgery urgently (10/26/16) and a second washout on 10/27/16. 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 Pt can be d/c to SNF and have outpatient appt at Wound Clinic to get Wound Vac once diarrhea is resolved. Acute sepsis. Present on admission. Resolved - Secondary to Delphine's gangrene in the context of uncontrolled type 2 diabetes. - NS @ 100 ml/hr - Blood cultures show no growth after 48hrs - Wound cultures show no organisms. - abx initially, Zosyn, clindamycin, and Linezolid IV - Dr. Sherwood consulted - started PO medications to continue outpatient -Started Levaquin 750mg PO daily for seven days, Flagyl 750mg PO BID for seven days- instructed to avoid alcohol. Patient QTc 448 Acute kidney injury. Present on admission. Resolved - Cr stable at 1.05 (11/02) - NS @ 100 ml/hr - Monitor BMP Type 2 Diabetes, Uncontrolled, Present on Admission, Chronic. Ongoing. - BG 320 on admission. Pt reports BG in 200s for last few days. - Hold home glipizide and metformin until BG under more control - Insulin gtt. with Pradial doses of 10U breakfast, lunch, and dinner - Lantus 30U HS - A1c 11. Hypertension, acute on chronic. Ongoing - Increase Lisinopril to 30mg starting (10/31). - Patient received Labetalol 200mg PO at 1800 10/30, and Labetalol 20mg IV 10/31 - Continue to monitor BP Angina. Not Present on Admission. Resolved - Troponin - not elevated - EKG reviewed. Normal sinus rhythm -This is likely secondary effects to medications. Will monitor. Constipation resolved - Stop Lactulose, patient having multiple bowel movements Other Medical Conditions GERD - GI prophylaxis with pepcid Depression and Anxiety - Bowel regimen as needed - Antiemetic as needed - PT as tolerated Disposition: P Patient has transitioned to PO antibiotics.plan to go intermediate prior to home for continued wound care management. Will likely go home tomorrow or the next day pending on placement. - Wound Consult- given diarrhea, will hold off Wound Vac. Pt can be d/c to SNF and have outpatient appt at Wound Clinic to get Wound Vac once diarrhea is resolved. -Started Levaquin 750mg PO daily for seven days, Flagyl 750mg PO BID for seven days- instructed to avoid alcohol. Patient QTc 448 GI Prophylaxis: Proton Pump Inhibitor VTE Prophylaxis: SCDs VTE Mechanical Devices: Intermittant Pneumatic CD Resuscitation Status: CPR: Attempt Resuscitation Edgardo Bautista MD Nov 03, 2016 15:47
--- NOTE | 2016-11-03 19:42 | NUR ---
Activity Pt having pain 4/10, well tolerated with the exception of during dressing change. Pt pre-medicated with PO meds and lidocaine used. Pt upset over diet restriction of 45g of carbs and states "this isn't enough food for me." Lunch time blood glucose was 81, pt initially denied any s/s of hypoglycemia and started eating lunch, then stated "I see black spots" and wanted BG rechecked. Repeat was 121 and pt stated no more problems. Significant anxiety r/t low BG and reported he doesn't do well if BG are low and he had a bad experience at SNF with repeated hypoglycemia. Bed in low, call light in reach, care continues.
[2016-11-03 19:45] VITALS: BP 137/76; PULSE 76; RESP 17; O2SAT 98
[2016-11-03] MEDS: Insulin GLARgine 100 Unit/mL Syringe SUBQ SCH (21:56)
[2016-11-04] MEDS: Sodium Chloride LOK Flush 10 mL Syringe IVFLUSH SCH ×4 (00:30→07:58)
[2016-11-04 04:55] VITALS: BP 142/81; PULSE 79; RESP 17; O2SAT 96
--- NOTE | 2016-11-04 07:50 | PCM.PNSURG ---
Subjective Date of Service: Nov 04, 2016 Visit Information: Reason for Visit Perineal Gangrene Surgery/Surgery Date Post-Op Day # Date of Admission: Oct 25, 2016 at 22:25 Hospital Day # Subjective: Patient states his pain is controlled, and denies any nausea, vomiting, fevers, sweats, chills. He is eating and drinking, and ambulating. His diarrhea is improving. Postop General: No Complaints Gastrointestinal: Good Appetite Pain Management: PO Postop Activity: Ambulate with Assist Objective Objective Dressing of perineal wound is dry. No surrounding tenderness. Vital Sign- Last 8 Hours Date Time Temp Pulse Resp B/P Pulse Ox O2 Delivery O2 Flow Rate FiO2 11/04/16 04:55 36.4 79 17 142/81 96 Room Air Intake and Output- Last 8 Hour 11/04/16 Cumulative From/Thru 07:00 10/25/16 00:59 - 11/04/16 05:10 Intake Total 918 ml 00891 ml Output Total 1600 ml 26262 ml Balance -682 ml 9304 ml Intake Oral 918 ml 8813 ml IV Total 38520 ml Output Urine Total 1600 ml 00795 ml Stool Total 6 ml Estimated Blood Loss 450 ml # Voids 5 # Bowel Movements 0 5 General: Alert, Oriented X3, Cooperative Neck: Full Range of Motion Lungs: Normal Air Movement Heart: Exam Unremarkable Abdomen: Benign Result Diagram: 11/02/16 0415 11/02/16 0415 Assessment & Plan Impression 65-year-old male status post debridement of perineal wound -He is stable from a surgical standpoint. -We recommend that he be discharged to a [place] [facility] facility for assistance with his dressing changes. -His wound culture was finalized today and was negative, but he should remain on antibiotics after discharge. -He needs to be followed by wound care when he leaves the hospital, and he should follow-up at the surgery clinic for a PA visit in 2 weeks. Thank you for involving us in the care of this patient, and do not hesitate to contact us with any questions or concerns. Problems: VTE Prophylaxis: SCDs Resuscitation Status: CPR: Attempt Resuscitation Cristhian Kuo DO Nov 04, 2016 07:50
[2016-11-04] MEDS: levoFLOXacin 750 mg Tablet PO SCH (07:57)
[2016-11-04] MEDS: Insulin LISPRO 300 Unit/3 mL Inj SUBQ SCH ×2 (07:58→11:47)
[2016-11-04] MEDS: Nystatin 100,000 Unit/Gm 15 Gm Powder TOPICAL SCH (07:58)
--- NOTE | 2016-11-04 08:10 | NUR ---
Dressing change Patient's dressing was changed this shift. Patient was pre-medicated one hour prior to dressing for comfort during procedure. Patient's skin is beginning to look red around patient's coccyx area. Patient's blood sugar stable this shift. Patient has no IV access. Patient not up OOB this shift.
[2016-11-04 08:30] VITALS: BP 149/76; PULSE 78; RESP 17; O2SAT 97
[2016-11-04] MEDS: oxyCODONE-Acetamin 5-325 mg Tablet PO PRN (10:41)
--- NOTE | 2016-11-04 11:38 | NUR ---
HALFWAY TRANSFER : Called and spoke with Anita in admission at [facility] and she is arranging a wheelchair van for 1400 pickup. Let her know patient will be in hermelinda wheelchair and this will need to be returned by transport company. 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 Faxed orders to [facility] and placed copy in the chart. Updated DIRECTOR SKILLS
[2016-11-04] MEDS: Lidocaine 5% 35.5 Gm Ointment TOPICAL SCH (11:44)
--- NOTE | 2016-11-04 11:52 | PCM.PNMED ---
Subjective Date of Service Nov 04, 2016 Subjective Pt says diarrhea improved in frequency but still having loose bowel movement. Exam Vital Signs Vital Sign - Last Date Time Temp Pulse Resp B/P Pulse Ox O2 Delivery O2 Flow Rate FiO2 11/04/16 08:30 37.1 78 17 149/76 97 Room Air 11/01/16 20:56 2.00 Intake and Output 11/03/16 11/03/16 11/04/16 Cumulative From/Thru 15:00 23:00 07:00 10/25/16 00:59 - 11/04/16 05:10 Intake Total 800 ml 918 ml 28270 ml Output Total 1000 ml 1600 ml 87440 ml Balance -200 ml -682 ml 9304 ml Intake Oral 800 ml 918 ml 8813 ml IV Total 20489 ml Output Urine Total 1000 ml 1600 ml 76647 ml Stool Total 6 ml Estimated Blood Loss 450 ml # Voids 5 # Bowel Movements 0 5 Exam Constitutional: Awake and alert. In no acute distress. Head: normocephalic and atraumatic Eyes: EOMI, pink conjunctiva Heart: regular rate and rhythm Lungs: clear to auscultation bilaterally. No wheeze, rales, or rhonchi. ABD: protuberant. mild epigastric tenderness. Bowel sounds present throughout. : Surgical site healing with surrounding erythema where adhesive tape is placed. Minimal drainage. Granulation tissue surrounding site with signs of healing. No signs of worsening infection. Skin: Warm, dry, no rash other than mentioned above. Musculoskeletal: moves all four extremities appropriately Psych: appropriate mood and affect IVs and Medications Medications Reviewed: Medications were reviewed in detail Lab and Diagnostics Result Diagram: 11/02/16 0415 11/02/16 0415 Microbiology MRSA nasal - negative Blood cultures show no growth after 24hours Wound cultures show no organisms. X-Rays, CTs and MRIs CT ABDOMEN AND PELVIS WITH CONTRAST 1. Subcutaneous gas collection within the left perineum, consistent with infection, with gas-forming organism (necrotizing fasciitis). 2. Cholelithiasis. 3. Small hiatal hernia. 4. Findings discussed with Dr. Mirza on 10.25.16 at 2148 hrs. Dictated by: Monika Bates M.D. on 10/25/2016 at 21:43 Approved by: Monika Bates M.D. on 10/25/2016 at 21:49 X-RAY CHEST ONE VIEW, PORTABLE IMPRESSION: No acute process. Dictated by: Monika Bates M.D. on 10/25/2016 at 20:08 Approved by: Monika Bates M.D. on 10/25/2016 at 20:08 . Additional Diagnostics SPECIMEN: Perineum, biopsy CLINICAL HISTORY: PERINEAL SOFT TISSUE INFECTION WITH GAS 1). PERINEAL TISSUE, ? NECROTIZING FASCIITIS FINAL DIAGNOSIS: 1.PERINEAL SOFT TISSUE, DEBRIDEMENT: SKIN AND SOFT TISSUE NECROSIS WITH LARGE AND SMALL VESSEL VASCULITIS AND ACUTE INFLAMMATION ALSO PRESENT. NO MUSCLE IDENTIFIED. NO VIABLE TISSUE IS PRESENT. Negative for malignancy, see comment. NOTE: The differential diagnosis of these findings include necrotizing fasciitis, ischemic/decubitus ulcer, infection, vasculopathic etiology. Clinical correlation recommended. Please correlate with tissue cultures. There is no evidence of malignancy. This case has been reviewed by dermatopathologist Dr. Conde, who agrees with the interpretation. GROSS DESCRIPTION: The specimen is received in one formalin filled container labeled with the patient's name, sublabeled "perineal tissue" and consists of a dark brown friable dome shaped portion of tissue which measures 2.0 x 1.2 x 0.9 CM. The specimen is inked blue. The specimen is sectioned into 5 pieces and entirely submitted in 2 cassettes. 10/26/2016DC Kenan Chase M.D.,[facility] Assessment & Plan Patient is a 65-year-old male with a history of type 2 diabetes, and past history of perineal abscesses who presents with pain and swelling in his perineal area for one week. Admitted for Delphine's gangrene. 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 CT as described above. - Dr. Mims of General Surgery was consulted and took the patient to surgery urgently (10/26/16) and a second washout on 10/27/16. - Diabetic Diet - low carb - Dilaudid CLOUD CONSULTANT discontinued (11/02), started Percocet 5/325 PO Q4 PRN - Wound Consult Recommendations- given diarrhea, will hold off Wound Vac. Pt can be d/c to [facility] and have outpatient appt at Wound Clinic to get Wound Vac once diarrhea is resolved. Acute sepsis. Present on admission. Resolved - Secondary to Delphine's gangrene in the context of uncontrolled type 2 diabetes. - NS @ 100 ml/hr - Blood cultures show no growth after 48hrs - Wound cultures show no organisms. - abx initially, Zosyn, clindamycin, and Linezolid IV - Dr. Sherwood consulted - started PO medications to continue outpatient -Started Levaquin 750mg PO daily for seven days, Flagyl 750mg PO BID for seven days- instructed to avoid alcohol. Patient QTc 448 Acute kidney injury. Present on admission. Resolved - Cr stable at 1.05 (11/02) - NS @ 100 ml/hr - Monitor BMP Type 2 Diabetes, Uncontrolled, Present on Admission, Chronic. Ongoing. - BG 320 on admission. Pt reports BG in 200s for last few days. - Hold home glipizide and metformin until BG under more control - Insulin gtt. with Pradial doses of 10U breakfast, lunch, and dinner - Lantus 30U HS - A1c 11. Hypertension, acute on chronic. Ongoing - Increase Lisinopril to 30mg starting (10/31). - Patient received Labetalol 200mg PO at 1800 10/30, and Labetalol 20mg IV 10/31 - Continue to monitor BP Angina. Not Present on Admission. Resolved - Troponin - not elevated - EKG reviewed. Normal sinus rhythm -This is likely secondary effects to medications. Will monitor. Constipation resolved - Stop Lactulose, patient having multiple bowel movements Other Medical Conditions GERD - GI prophylaxis with pepcid Depression and Anxiety - Bowel regimen as needed - Antiemetic as needed - PT as tolerated Disposition: - discharge to a halfway [facility] care Center for assistance with his dressing change - Wound Consult Recommendations- given diarrhea, will hold off Wound Vac. Pt can be d/c to [facility] and have outpatient appt at Wound Clinic to get Wound Vac once diarrhea is resolved. - Will need daily dressing changes, use Topical Lidocaine during changes. -Continue Levaquin 750mg PO daily and Flagyl 750mg PO BID for seven days total ending 11/08. - follow-up at the surgery clinic for a PA visit in 2 weeks. GI Prophylaxis: Proton Pump Inhibitor VTE Prophylaxis: SCDs VTE Mechanical Devices: Intermittant Pneumatic CD Resuscitation Status: CPR: Attempt Resuscitation Edgardo Bautista MD Nov 04, 2016 11:52
--- NOTE | 2016-11-04 11:55 | PCM.DIMED ---
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 Present on admission. Resolved Acute kidney injury. Present on admission. Resolved Type 2 Diabetes, Uncontrolled, Present on Admission, Chronic. Ongoing. Hypertension, acute on chronic. Ongoing Angina. Not Present on Admission. Resolved Medication Instructions Additional med instructions -Continue Levaquin 750mg PO daily and Flagyl 750mg PO BID for seven days total ending 11/08. Patient Instructions Patient Instructions - Will need daily dressing changes, use Topical Lidocaine during changes. Follow-up plan - follow-up at the surgery clinic for a PA visit in 2 weeks. - Wound Consult Recommendations- given diarrhea, will hold off Wound Vac. Pt can be d/c to [facility] and have outpatient appt at Wound Clinic to get Wound Vac once diarrhea is resolved. Provider: Alber Mims MD Follow-up in: 2 weeks Edgardo Bautista MD Nov 04, 2016 11:55
[2016-11-04] MEDS ORDERED: METR500T PO (11:56)
[2016-11-04] MEDS ORDERED: LEVO750T9 PO (11:56)
[2016-11-04] MEDS ORDERED: LIDO5O TOPICAL (11:56)
--- NOTE | 2016-11-04 13:01 | NUR ---
Social Work- Discharge/Multidisciplinary Rounds Data: EMR reviewed. Pt is on day 10 of hospitalization. Pt discussed in multidisciplinary rounds. Pt has been cleared for d/c. Insurance authorization has been obtained. Pt has been accepted to [facility]. Discharge orders are written. T/C to [facility] regarding discharge, [facility] agreeable to accepting pt today. Pt will require [facility] bed and [facility] wheelchair, [facility] aware. [facility] wheelchair for transport will be provided by the hospital and required to be returned. [facility] aware. RN notified of [facility] wheelchair requirement for transport. [facility] created packet and faxed orders. [facility] arranged transport at 1400 via wheelchair. Pt updated and agreeable to plan. RN, pt, UC, and [facility] all updated and agreeable to plan. Assessment: Pt who medically requires SNF. Plan: Pt to discharge at 1400 via [facility] wheelchair to [facility]. RN, pt, UC, and [facility] all updated and agreeable to plan. AMMON Reveles
--- NOTE | 2016-11-04 15:58 | PCM.DC.MED ---
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 Present on admission. Resolved Acute kidney injury. Present on admission. Resolved Type 2 Diabetes, Uncontrolled, Present on Admission, Chronic. Ongoing. Hypertension, acute on chronic. Ongoing Angina. Not Present on Admission. Resolved Procedures XRay, CTs & MRIs CT ABDOMEN AND PELVIS WITH CONTRAST 1. Subcutaneous gas collection within the left perineum, consistent with infection, with gas-forming organism (necrotizing fasciitis). 2. Cholelithiasis. 3. Small hiatal hernia. 4. Findings discussed with Dr. Mirza on 10.25.16 at 2148 hrs. Dictated by: Monika Bates M.D. on 10/25/2016 at 21:43 Approved by: Monika Bates M.D. on 10/25/2016 at 21:49 X-RAY CHEST ONE VIEW, PORTABLE IMPRESSION: No acute process. Dictated by: Monika Bates M.D. on 10/25/2016 at 20:08 Approved by: Monika Bates M.D. on 10/25/2016 at 20:08 . Other Diagnostics SPECIMEN: Perineum, biopsy CLINICAL HISTORY: PERINEAL SOFT TISSUE INFECTION WITH GAS 1). PERINEAL TISSUE, ? NECROTIZING FASCIITIS FINAL DIAGNOSIS: 1.PERINEAL SOFT TISSUE, DEBRIDEMENT: SKIN AND SOFT TISSUE NECROSIS WITH LARGE AND SMALL VESSEL VASCULITIS AND ACUTE INFLAMMATION ALSO PRESENT. NO MUSCLE IDENTIFIED. NO VIABLE TISSUE IS PRESENT. Negative for malignancy, see comment. NOTE: The differential diagnosis of these findings include necrotizing fasciitis, ischemic/decubitus ulcer, infection, vasculopathic etiology. Clinical correlation recommended. Please correlate with tissue cultures. There is no evidence of malignancy. This case has been reviewed by dermatopathologist Dr. Conde, who agrees with the interpretation. GROSS DESCRIPTION: The specimen is received in one formalin filled container labeled with the patient's name, sublabeled "perineal tissue" and consists of a dark brown friable dome shaped portion of tissue which measures 2.0 x 1.2 x 0.9 CM. The specimen is inked blue. The specimen is sectioned into 5 pieces and entirely submitted in 2 cassettes. 10/26/2016DC Kenan Chase M.D.,[facility] Brief History Per HPI from Dr. Delacruz on 10/26/16 Patient is a 65-year-old male with a history of type 2 diabetes, and past history of perineal abscesses who presents with pain and swelling in his perineal area for one week. He developed nausea, vomiting, and diarrhea last Wednesday and he began to feel weak and like he could not get out of bed. He reports anorexia, weakness, and generalized dull abdominal pain. He denies any trauma to the area. Denies fevers, chills. He states this episode is similar to an episode in 2005 when he was admitted to [facility] for perineal soft tissue infection, which was debrided by Dr. Chow of Urology. He has a history of diabetes last took his blood sugar 3 days ago and it was in the 200s. He has been too weak to take it since then. He reports intermittent chest pain that began about 2 months ago after a severe cough. He reports a sternal aching chest pain that does not radiate or worsen with exertion, and improves with heat packs. He states he has no dyspnea or chest pain on exertion and can climb 1-2 flights of stairs without any difficulty. He has no history of cardiovascular disease. On admission, temp 38.6, HR 106, RR 22, BP 157/63, O2 100 on RA. WBC 15.3 with 87.7% neutrophils, BUN 33, Cr 1.58, glucose 320. Abdominal CT showed subcutaneous gas collection within the left perineum. Hospital Course Patient is a 65-year-old male with a history of type 2 diabetes, and past history of perineal abscesses who presents with pain and swelling in his perineal area for one week. Admitted for Delphine's gangrene. 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 CT as described above. - Dr. Mims of General Surgery was consulted and took the patient to surgery urgently (10/26/16) and a second washout on 10/27/16. - Diabetic Diet - low carb - Dilaudid CUSTOMER SALES SERVICE MANAGER discontinued (11/02), started Percocet 5/325 PO Q4 PRN - Wound Consult Recommendations- given diarrhea, will hold off Wound Vac. Pt can be d/c to [facility] [place] and have outpatient appt at Wound Clinic to get Wound Vac once diarrhea is resolved. Acute sepsis. Present on admission. Resolved - Secondary to Delphine's gangrene in the context of uncontrolled type 2 diabetes. - NS @ 100 ml/hr - Blood cultures show no growth after 48hrs - Wound cultures show no organisms. - abx initially, Zosyn, clindamycin, and Linezolid IV - Dr. Sherwood consulted - started PO medications to continue outpatient -Started Levaquin 750mg PO daily for seven days, Flagyl 750mg PO BID for seven days- instructed to avoid alcohol. Patient QTc 448 Acute kidney injury. Present on admission. Resolved - Cr stable at 1.05 (11/02) - NS @ 100 ml/hr - Monitor BMP Type 2 Diabetes, Uncontrolled, Present on Admission, Chronic. Ongoing. - BG 320 on admission. Pt reports BG in 200s for last few days. - Hold home glipizide and metformin until BG under more control - Insulin gtt. with Pradial doses of 10U breakfast, lunch, and dinner - Lantus 30U HS - A1c 11. Hypertension, acute on chronic. Ongoing - Increase Lisinopril to 30mg starting (10/31). - Patient received Labetalol 200mg PO at 1800 10/30, and Labetalol 20mg IV 10/31 - Continue to monitor BP Angina. Not Present on Admission. Resolved - Troponin - not elevated - EKG reviewed. Normal sinus rhythm -This is likely secondary effects to medications. Will monitor. Constipation resolved - Stop Lactulose, patient having multiple bowel movements Other Medical Conditions GERD - GI prophylaxis with pepcid Depression and Anxiety - Bowel regimen as needed - Antiemetic as needed - PT as tolerated Disposition: - discharge to a group home LIfe care [place] for assistance with his dressing change - Wound Consult Recommendations- given diarrhea, will hold off Wound Vac. Pt can be d/c to [facility] and have outpatient appt at Wound Clinic to get Wound Vac once diarrhea is resolved. - Will need daily dressing changes, use Topical Lidocaine during changes. -Continue Levaquin 750mg PO daily and Flagyl 750mg PO BID for seven days total ending 11/08. - follow-up at the surgery clinic for a PA visit in 2 weeks. Exam Vital Signs (Last) Date Time Temp Pulse Resp B/P Pulse Ox O2 Delivery O2 Flow Rate FiO2 11/04/16 08:30 37.1 78 17 149/76 97 Room Air 11/01/16 20:56 2.00 Test 10/25/16 19:55 10/26/16 11:25 10/27/16 19:25 10/30/16 13:35 Hemoglobin A1c 11.0% (4.8-5.6) Lipase 17U/L (13-60) Urine Color Yellow (YELLOW) Urine Appearance Hazy (CLEAR,HAZY) Urine pH 6.0 (5.0-8.0) Urine Specific [place] 1.025 (1.003-1.035) Urine Protein 300mg/dL (NEG,TRACE) Urine Glucose (UA) 500mg/dL (NEGATIVE) Urine Ketones Negativemg/dL (NEGATIVE) Urine Occult Blood Small (NEGATIVE) Urine Nitrite Negative (NEGATIVE) Urine Bilirubin Negative (NEGATIVE) Urine Urobilinogen Normalmg/dL (NORMAL) Urine Leukocyte Esterase Negative (NEGATIVE) Urine RBC 3-10/hpf (0-2) Urine WBC 0-5/hpf (0-5) Urine Epithelial Cells Occasional/hpf (NONE-MOD) Urine Crystals None seen (NONE SEEN) Urine Bacteria Few/hpf (NONE-FEW) Urine Hyaline Casts None/lpf (NONE) Urine Granular Casts None seen (NONE SEEN) Urine Waxy Casts None seen (NONE SEEN) Urine Red Blood Cell Casts None seen (NONE SEEN) Urine White Blood Cell Casts None seen (NONE SEEN) Urine Mucus None seen (None Seen) Urine Trichomonas None seen (NONE SEEN) Urine Yeast None (NONE SEEN) Urinalysis Comment None Urine Culture Reflexed Not indicated Vancomycin Level Trough 20.8mcg/mL Lactic Acid Level 0.6mmol/L (0.4-2.0) Total Creatine Kinase 35U/L (21-232) Test 10/31/16 04:00 11/02/16 04:15 Troponin T 0.010ug/L (0.0-0.011) White Blood Count 8.3th/mm3 (3.8-10.1) Red Blood Count 3.18mil/mm3 (4.40-5.80) Hemoglobin 9.0g/dL (13.8-17.2) Hematocrit 27.7% (41.0-50.0) Mean Corpuscular Volume 87.1fL (81-100) Mean Corpuscular Hemoglobin 28.3pg (27.0-35.0) Mean Corpuscular Hemoglobin Concent 32.5% (32.0-37.0) Red Cell Distribution Width 13.4% (12.3-15.4) Platelet Count 275bil/L (150-400) Neutrophils (%) (Auto) 57.2% (40-74) Lymphocytes (%) (Auto) 27.3% (14-46) Monocytes (%) (Auto) 7.1% (4-12) Eosinophils (%) (Auto) 5.9% (0-5) Basophils (%) (Auto) 0.6% (0-3) Band Neutrophils % 2% (1-5) Hematology Comments Prothrombin Time 10.9sec (8.1-12.5) Prothromb Time International Ratio 1.02ratio Sodium Level 137mEq/L (134-144) Potassium Level 4.9mEq/L (3.5-5.2) Chloride Level 100mEq/L (97-108) Carbon Dioxide Level 30mmol/L (18-29) Blood Urea Nitrogen 17mg/dL (8-27) Creatinine 1.05mg/dL (0.76-1.27) Estimat Glomerular Filtration Rate 75mL/min (>59) Glucose Level 163mg/dL (60-99) Calcium Level 8.8mg/dL (8.5-10.1) Phosphorus Level 2.3mg/dL (2.5-4.9) Magnesium Level 1.9mg/dL (1.6-2.6) Total Bilirubin 0.2mg/dL (0.0-1.2) Aspartate Amino Transf (AST/SGOT) 13U/L (0-50) Alanine Aminotransferase (ALT/SGPT) 10U/L (0-44) Alkaline Phosphatase 72U/L (25-160) Total Protein 6.4g/dL (6.4-8.4) Albumin 2.8g/dL (3.4-5.0) Procalcitonin 0.07ng/mL (0.00-0.08) Microbiology Results MRSA nasal - negative Blood cultures show no growth after 24hours Wound cultures show no organisms. Discharge Medications Discharge Medications Ascorbic Acid (Vitamin C) 250 Mg Tab.chew 500 MG PO DAILYWM (Reported) B Complex with Vitamin C (Vitamin B-Complex with Vit C) 1 Each Tablet 1 EACH PO QAM (Reported) Glipizide (Glipizide) 5 Mg Tablet 10 MG PO DAILYWM (Reported) Ibuprofen (Ibuprofen) 800 Mg Tablet 800 MG PO DAILYWM (Reported) Levofloxacin (Levaquin) 750 Mg Tablet 750 MG PO DAILYAC Prescribed by: REGAN BAUTISTA MD Lidocaine HCl (Lidocaine) 142 Appl/37.5 Gm Oint 1 APPLIC TOPICAL Q12@ Prescribed by: REGAN BAUTISTA MD Lisinopril (Lisinopril) 10 Mg Tablet 20 MG PO QAM (Reported) Metformin (Metformin) 500 Mg Tablet 500 MG PO DAILYWM (Reported) Metronidazole (Flagyl) 500 Mg Tablet 500 MG PO TIDWM Prescribed by: REGAN BAUTISTA MD Multivit with Calcium,Iron,Min (Multivitamins K-Uneeuqb-Eahr) 1 Each Tablet 1 EACH PO QAM (Reported) Additional med instructions -Continue Levaquin 750mg PO daily and Flagyl 750mg PO BID for seven days total ending 11/08. Followup Plan Disposition: [facility] Follow-up plan - follow-up at the surgery clinic for a PA visit in 2 weeks. - Wound Consult Recommendations- given diarrhea, will hold off Wound Vac. Pt can be d/c to [facility] and have outpatient appt at Wound Clinic to get Wound Vac once diarrhea is resolved. Patient Instructions - Will need daily dressing changes, use Topical Lidocaine during changes. Provider: Alber Mims MD Follow-up in: 2 weeks Regan Bautista MD Nov 04, 2016 15:58
--- NOTE | 2016-11-04 16:14 | NUR ---
Discharge pt. to be discharged to [facility] this afternoon. VSS; A&Ox3; pt. had no questions about transfer; awaiting transport to come back for patient with bariatric wheelchair. Dressing to perineum changed this am per md orders; prn percocet given prior to dressing change. Report called to receiving RN to continue to monitor patient and change dressings accordingly. Belongings with patient; wallet, keys, and phone with patient; patient verified all cards in wallet.
[2016-11-04 16:56] VITALS: BP 144/79; PULSE 80; RESP 17; O2SAT 97
== END 2016-11-04 16:14 | DRG 853 ==
LOC: SED 18:50 → PCC 22:25 → CCU 10-26 02:45 → PCC 10-29 10:10 → OSC 11-02 22:04
PROVIDERS: ADMIT Surgery; ATTEND Internal Medicine
PROC: 0JBB0ZZ Excision of Perineum Subcutaneous Tissue and Fascia, Open Approach (ICD-10-PCS; 2016-10-26)
PROC: 05HM33Z Insertion of Infusion Device into Right Internal Jugular Vein, Percutaneous Approach (ICD-10-PCS; 2016-10-26)
PROC: 03HY32Z Insertion of Monitoring Device into Upper Artery, Percutaneous Approach (ICD-10-PCS; 2016-10-26)
PROC: 0JBB0ZZ Excision of Perineum Subcutaneous Tissue and Fascia, Open Approach (ICD-10-PCS; principal; 2016-10-26 14:15)
DX: A41.9 Sepsis, unspecified organism (principal); M72.6 Necrotizing fasciitis; N17.9 Acute kidney failure, unspecified; E11.52 Type 2 diabetes mellitus with diabetic peripheral angiopathy with gangrene; N49.3 Fournier gangrene; E11.65 Type 2 diabetes mellitus with hyperglycemia; I10 Essential (primary) hypertension; K21.9 Gastro-esophageal reflux disease without esophagitis; F41.8 Other specified anxiety disorders; E66.01 Morbid (severe) obesity due to excess calories; I20.9 Angina pectoris, unspecified; E11.42 Type 2 diabetes mellitus with diabetic polyneuropathy; Z79.84 Long term (current) use of oral hypoglycemic drugs